=== PATIENT | male | born 1955 | race Caucasian/White ===

== ENCOUNTER 2019-06-13 20:14 | Emergency (ER) | payer BC, SELFPAY ==
[2019-06-13 20:44] VITALS: BP 145/91; PULSE 78; RESP 17; TEMP 36.5; O2SAT 96; BMI 33.1
[2019-06-13 20:46] VITALS: BMI 33.1
--- NOTE | 2019-06-13 20:46 | XR_ITS ---
PROCEDURE: XR PELVIS 1-2V CLINICAL INDICATION: fall COMPARISON: No exams were available for comparison TECHNIQUE: XR Pelvis AP View FINDINGS: No fracture or dislocation is evident. No significant degenerative change. There are prominent degenerate changes of the lower lumbar spine at the L 4 5 level. No lytic or blastic change. IMPRESSION: No acute findings. Dictated by: Dr. Josué Holliday MD 06/14/2019 09:[address] Josué Holliday MD in [place] 06/14/2019 09:09
--- NOTE | 2019-06-13 20:46 | CT_ITS ---
PROCEDURE: CT HEAD/BRAIN WO CON CLINICAL INDICATION: fall fell off of commode, no LOC COMPARISON: No exams were available for comparison TECHNIQUE: Axial images obtained. All CT scans at the facility use one or more dose reduction, viz: automated exposure control, ma/kV adjustment per patient size (including targeted exams where dose is matched to indication, i.e. head), or iterative reconstruction technique. FINDINGS: No midline shift, mass effect, intracranial hemorrhage, hydrocephalus, or extra-axial fluid collection is evident. The sylvian fissures and cortical sulci are mildly prominent. The calvarium has an unremarkable appearance. There is mild diffuse soft tissue swelling of the right periorbital region and upper right cheek. No mastoid effusion. No sinus air-fluid level. IMPRESSION: No acute intracranial finding, findings of mild age-appropriate cortical atrophy, agree with theV RC report Dictated by: Dr. Josué Holliday MD 06/14/2019 08:[address] Josué Holliday MD in [place] 06/14/2019 08:55
--- NOTE | 2019-06-13 20:46 | CT_ITS ---
PROCEDURE: CT FACIAL BONES WO CON CLINICAL HISTORY: fall Patient fell off commode contusion right-side of face COMPARISON: No exams were available for comparison TECHNIQUE: Axial images obtained with sagittal and coronal reformats. All CT scans at the facility use one or more dose reduction, viz: automated exposure control, ma/kV adjustment per patient size (including targeted exams where dose is matched to indication, i.e. head), or iterative reconstruction technique. FINDINGS: Bones: Unremarkable. No fracture, lytic, or blastic changes evident. Extracranial soft tissues: There is mild diffuse soft tissue swelling of the right periorbital region and right upper cheek anterior to the right zygomatic arch. Sinuses: There is minimal mucoperiosteal thickening on of the floors of the maxillary sinuses Orbits: Unremarkable. Other: No other pertinent findings. IMPRESSION: Mild diffuse soft tissue swelling of the right periorbital soft tissues, no acute fracture seen Dictated by: Dr. Josué Holliday MD 06/14/2019 09:[address] Josué Holliday MD in [place] 06/14/2019 09:07
--- NOTE | 2019-06-13 20:46 | CT_ITS ---
PROCEDURE: CT CERVICAL SPINE WO CON CLINICAL INDICATION: fall Fell off of commode hitting head, complaining of neck pain and stiffness COMPARISON: No exams were available for comparison TECHNIQUE: Axial images obtained with sagittal and coronal reformats. All CT scans at the facility use one or more dose reduction, viz: automated exposure control, ma/kV adjustment per patient size (including targeted exams where dose is matched to indication, i.e. head), or iterative reconstruction technique. Axial spiral CT scanning performed of the cervical spine beginning at the base of the skull and continuing to the upper T-spine. 3-D multiplanar reconstruction with 3-D manipulation of volumetric data set in image rendering was completed by the radiologist and/or technologist with the supervision of the radiologist on independent workstation. FINDINGS: No fracture nor subluxation is evident. Normal prevertebral soft tissues. Facets, neural foramen and vertebral bodies intact and unremarkable. Normal C1/C2 relationships. There are mild to moderate multilevel degenerate changes with multilevel disc space narrowing and anterior and posterior osteophytic spurring with findings most prominent at the C5-6 and C6-7 levels. There is bilateral neural foraminal narrowing at C4-5, C5-6 and C6-7 level secondary to osteophytic spurring of the uncinate joints. Apices of lungs are clear with no acute findings. IMPRESSION: Cervical spine intact with no fracture nor subluxation. Mild to moderate multilevel degenerate changes as noted above Dictated by: Dr. Josué Holliday MD 06/14/2019 08:[address] Josué Hloliday MD in [place] 06/14/2019 08:58
--- NOTE | 2019-06-13 20:46 | XR_ITS ---
PROCEDURE: XR CHEST PORTABLE CLINICAL HISTORY: fall COMPARISON: No exams were available for comparison FINDINGS: The cardiomediastinal silhouette and pulmonary vascularity are within normal limits. The lungs are clear without infiltrates, suspicious nodules, or pleural effusions. No acute bony abnormalities however the anterior portions of the 8 9th 10th and 11th and 12th ribs are not adequately evaluated on this image. IMPRESSION: No acute findings. Dictated by: Dr. Josué Holliday MD 06/14/2019 09:[address] Josué Holliday MD in [place] 06/14/2019 09:08
--- NOTE | 2019-06-13 21:03 | XR_ITS ---
PROCEDURE: XR HAND RT MIN 3V CLINICAL INDICATION: fall COMPARISON: No exams were available for comparison FINDINGS: No fracture or dislocation. No lytic or blastic change. There is normal mineralization. The joint spaces are well-preserved. There is mild mild osteophytic spurring of the DIP joints of the index middle and ring fingers IMPRESSION: No acute findings. Dictated by: Dr. Josué Holliday MD 06/14/2019 09:[address] Josué Holliday MD in [place] 06/14/2019 09:11
--- NOTE | 2019-06-13 21:03 | XR_ITS ---
PROCEDURE: XR HAND LT MIN 3V CLINICAL INDICATION: fall COMPARISON: No exams were available for comparison FINDINGS: No fracture or dislocation. No lytic or blastic change. There is normal mineralization. The joint spaces are well-preserved. No significant degenerative/arthritic changes. No erosive changes evident. Other findings:None. IMPRESSION: No acute findings. Dictated by: Dr. Josué Holliday MD 06/14/2019 09:[address] Josué Holliday MD in [place] 06/14/2019 09:10
--- NOTE | 2019-06-13 21:20 | PC.NURSE ---
pt to rad at this time
--- NOTE | 2019-06-13 21:29 | HMH.EDFALL ---
ED Disposition Clinical Impression: Central cord synd/C5-C7, Alcohol use Fall Qualifiers: Encounter type: initial encounter Qualified Code(s): W19.XXXA - Unspecified fall, initial encounter Disposition: Xfer Short-Term Hosp Condition on Discharge: Good Referrals: Jairo Singleton MD [Primary Care Provider] - - Critical Care Critical Care Time: Yes Attestation: On 06/13/19, the high probability of a clinically significant, sudden or life threatening deterioration of the following system(s) required my full and direct attention, intervention and personal management. The time I documented below is in addition to time spent performing reported procedures but includes the following listed in this critical care notation. Total Critical Care Time: 60 Vital system(s) involved:: Central Nervous System My critical care processes included: Assessment & monitoring of V/S, Initial and Re-exams, Data Review/Interpretation, Medication Orders and management, Documentation Medical Decision Making - Medical Records Medical records reviewed: Yes: I reviewed the patient's medical records. - Jovany Inquiry Pt receiving controlled substance: No Vital Signs: 06/13/19 20:44 06/13/19 22:18 Temperature 97.7 F Temperature Source Oral Pulse Rate [Right Brachial] 78 78 Respiratory Rate 17 16 Blood Pressure [Right Arm] 145/91 H 117/66 Blood Pressure Mean [Right Arm] 109 83 Blood Pressure Source [Right Arm] Automatic Cuff Automatic Cuff Blood Pressure Position [Right Arm] Sitting Sitting 02 Sat by Pulse Oximetry 96 96 Oxygen Delivery Method Room Air Room Air - Lab Data Lab results reviewed: Yes: I reviewed the patient's lab results. Lab Results 06/13/19 21:30: Urine Color Yellow, Urine Appearance Clear, Urine pH 6.0, Ur Specific Mission 1.010, Urine Protein Trace, Urine Glucose (UA) Negative, Urine Ketones Negative, Urine Blood Trace-i, Urine Nitrate Negative, Urine Bilirubin Negative, Urine Urobilinogen 0.2, Ur Leukocyte Esterase Negative, Urine WBC Occasional, Ur Squamous Epith Cells Occasional, Urine Bacteria Trace 06/13/19 21:30: Urine Opiates Screen Negative, Urine Methadone Screen Negative, Ur Barbituates Screen Negative, Ur Phencyclidine Scrn Negative, Ur Amphetamines Screen Negative, U Benzodiazepines Scrn Negative, Urine Cocaine Screen Negative, U Marijuana (THC) Screen Negative 06/13/19 21:41: Troponin I < 0.01, Salicylates < 1.0 L, Acetaminophen < 10 L 06/13/19 21:41: Plasma/Serum Alcohol 198 H 06/13/19 21:41: WBC 8.4, RBC 4.51 L, Hgb 14.2, Hct 46.0, MCV 102.1 H, MCH 31.5 H, MCHC 30.9 L, RDW 14.2, Plt Count 183, MPV 9.6, Neut % (Auto) 62.9, Lymph % (Auto) 28.8, [place] % (Auto) 4.6, Eos % (Auto) 2.9, Baso % (Auto) 0.8, Neut # (Auto) 5.3, Lymph # (Auto) 2.4, [place] # (Auto) 0.4, Eos # (Auto) 0.3, Baso # (Auto) 0.1 06/13/19 21:41: Sodium 139, Potassium 4.4, Chloride 110 H, Carbon Dioxide 17 L, Anion Gap 16.4 H, BUN 26 H, Creatinine 1.10, Estimated Creat Clear 86, Estimated GFR 68, Est GFR ( Amer) 82, Glucose 116 H, Calcium 9.8, Total Bilirubin 0.5, AST 62 H, ALT 66, Alkaline Phosphatase 65, Total Protein 7.7, Albumin 4.8, Globulin 2.9, Albumin/Globulin Ratio 1.7 Result diagrams: 06/13/19 21:41 06/13/19 21:41 Orders (Tests/Meds): ORDERS Category Date Time Status CT cervical spine wo con Stat Cat Scan 06/13/19 20:[address] facial bones wo con Stat Cat Scan 06/13/19 20:[address] head/brain wo con Stat Cat Scan 06/13/19 20:46 Taken XR chest portable Stat Exams 06/13/19 20:46 Taken XR hand LT min 3V Stat Exams 06/13/19 21:03 Taken XR hand RT min 3V Stat Exams 06/13/19 21:03 Taken XR pelvis 1-2V Stat Exams 06/13/19 20:46 Taken Troponin I Q3H Lab 06/13/19 23:48 Ordered Troponin I Q3H Lab 06/14/19 02:48 Ordered - Radiology Data #1 Image(s): Chest, Hand, Pelvis Image Reviewed: Yes I reviewed the patient's radiology image Preliminary Findings: No Fracture Seen - CT Data CT Scan: Head, C-Spine
--- NOTE | 2019-06-13 21:35 | PC.NURSE ---
family updated at this time
[2019-06-13 21:41] LABS: Microscopic, Urine URINE MICROSCOPIC (MICROSCOPIC)
--- NOTE | 2019-06-13 21:44 | PC.NURSE ---
called lab to obtain blood for ordered labs. states will go get from ct room
[2019-06-13 21:48] LABS: Appearance,Urine CLEAR (Clear); Bilirubin,Urine Negative (Negative); Blood, Urine TRACE-I (Negative); Color,Urine YELLOW (Yellow); Glucose,Urine (UA) Negative (Negative); Ketones,Urine Negative (Negative); Leukocyte Esterase,Urine Negative (Negative); Nitrate,Urine Negative (Negative); Protein,Urine TRACE (Negative); Urobilinogen,Urine 0.2 EU/dl (0.2)
[2019-06-13 21:49] LABS: Basophils # 0.1 K/mm3 (0-0.2); Basophils % 0.8 % (0.1-2.0); Eosinophils # 0.3 K/mm3 (0.0-0.4); Eosinophils % 2.9 % (0.1-12.0); Hemoglobin 14.2 g/dL (14.1-18.0); Lymphocytes # 2.4 K/mm3 (0.7-4.5); Lymphocytes % 28.8 % (10-50); Mean Corpuscular HGB Conc 30.9 g/dL (31.8-35.4); Mean Corpuscular Hemoglobin 31.5 pg (27.0-31.2); Mean Corpuscular Volume 102.1 fl (80-94); Mean Platelet Volume 9.6 fl (7.4-10.4); Monocytes # 0.4 K/mm3 (0.1-1.0); Monocytes % 4.6 % (1.7-9.3); Neutrophils # 5.3 K/mm3 (1.8-7.8); Neutrophils % 62.9 % (37.0-80.0); Platelet Count 183 K/mm3 (142-424); Red Blood Count 4.51 M/mm3 (4.60-6.20); Red Cell Distribution Width 14.2 % (11.5-17.5); White Blood Count 8.4 K/mm3 (4.8-10.8)
[2019-06-13 21:56] LABS: Alanine Aminotransferase 66 U/L (12-78); Albumin Level 4.8 g/dl (3.5-5.0); Albumin/Globulin Ratio 1.7 (1.1-1.8); Alkaline Phosphatase 65 U/L (38-126); Anion Gap 16.4 mEq/L (5-15); Aspartate Amino Transferase 62 U/L (17-59); Bilirubin,Total 0.5 mg/dl (0.2-1.3); Blood Urea Nitrogen 26 mg/dl (9-20); Calcium 9.8 mg/dl (8.4-10.2); Carbon Dioxide 17 mmol/L (22.0-30.0); Chloride 110 mmol/L (98-107); Creatinine Clearance Estimated 86 mL/min (50-200); Estimated Glomerular Filt Rate 68 ml/min (>60); GFR (African American) 82 ML/MIN (>60); Globulin 2.9 g/dL (1.3-3.2); Glucose 116 mg/dl (74-100); Potassium 4.4 mmoL/L (3.5-5.1); Sodium 139 mmol/L (136-145); Total Protein,Serum 7.7 g/dl (6.3-8.2)
--- NOTE | 2019-06-13 22:03 | PC.NURSE ---
pt return from radiology. no acute distress or new complaints noted.
--- NOTE | 2019-06-13 22:04 | PC.NURSE ---
negative cspine ct result received. collar removed at this time. nurse at bedside for ekg.
[2019-06-13 22:08] LABS: Amphetamine/Metha Screen,Urine Negative ng/ml (<1000); Barbiturates Screen,Urine Negative ng/ml (<200)
[2019-06-13 22:08] LABS: Acetaminophen < 10 ug/ml (10-30); Salicylate < 1.0 mg/dL (2.0-20.0); Troponin I < 0.01 ng/ml (0.00-0.034)
[2019-06-13 22:09] LABS: Benzodiazepines Screen,Urine Negative ng/ml (<200)
[2019-06-13 22:10] LABS: Cannabinoid Screen,Urine Negative ng/ml (<50); Cocaine Screen,Urine Negative ng/ml (<300)
[2019-06-13 22:11] LABS: Methadone Screen,Urine Negative ng/ml (<300)
[2019-06-13 22:12] LABS: Opiate Screen,Urine Negative ng/ml (<300); Phencyclidine Screen,Urine Negative ng/ml (<25)
--- NOTE | 2019-06-13 22:16 | ECG_ITS ---
APPROVED REPORT Exam: Resting ECG HR:75 bpm ECG Measurements Heart Rate 75 AXES VA 134 P 52 QRSd 80 QRS 73 QT 392 T 60 QTc 437 <Conclusion> Normal sinus rhythm Normal ECG Electronically signed by : Evin Foster, 06/16/2019 14:11:22
[2019-06-13 22:17] LABS: Ethyl Alcohol 198 mg/dl (0-10)
[2019-06-13 22:18] VITALS: BP 117/66; PULSE 78; RESP 16; O2SAT 96
[2019-06-13 22:20] LABS: Bacteria,Urine Trace /lpf; Squamous Epithelial Cell,Urine Occasional #/hpf (0-5); WBC,Urine Occasional #/hpf (0-3)
--- NOTE | 2019-06-13 22:54 | PC.NURSE ---
on phone with [facility]
[2019-06-13 23:15] VITALS: BP 153/92; PULSE 80; RESP 16; O2SAT 97
[2019-06-14] VITALS: BP 149/89; PULSE 80; RESP 17; O2SAT 98
--- NOTE | 2019-06-14 00:04 | PC.NURSE ---
ems is here to transfer patient to er
[2019-06-14 00:17] VITALS: BP 132/78; PULSE 79; RESP 17; TEMP 36.5; O2SAT 96
--- NOTE | 2019-06-14 00:17 | PC.NURSE ---
report was given to melania Pendleton. States he didn't understand need for cardiac catheterization technician and preferred it be changed on the transfer form.
== END 2019-06-14 00:21 | disposition short-term general hospital (02) ==
PROVIDERS: Emergency Provider Emergency Medicine; PCP Family Medicine
DX: S14.125A Central cord syndrome at C5 level of cervical spinal cord, initial encounter (principal); S14.126A Central cord syndrome at C6 level of cervical spinal cord, initial encounter; S14.127A Central cord syndrome at C7 level of cervical spinal cord, initial encounter; W18.39XA Other fall on same level, initial encounter; Y92.012 Bathroom of single-family (private) house as the place of occurrence of the external cause; F10.10 Alcohol abuse, uncomplicated; I10 Essential (primary) hypertension; E11.9 Type 2 diabetes mellitus without complications; F17.210 Nicotine dependence, cigarettes, uncomplicated
CPT/HCPCS: 36415; 70450; 70486; 71045; 72125; 72170; 73130; 80053; 80305; 80329; 81001; 84484; 85025; 93005; 99284

== ENCOUNTER 2020-10-11 14:31 | Emergency (ER) | payer BC, SELFPAY ==
[2020-10-11 15:47] VITALS: BP 0/0; PULSE 0; RESP 0; TEMP -17.7; TEMP 0
== END 2020-10-11 15:48 | disposition left against medical advice (07) ==
LOC: UTC 14:34
PROVIDERS: Emergency Provider Nurse Practitioner; PCP Family Medicine
DX: Z53.21 Procedure and treatment not carried out due to patient leaving prior to being seen by health care provider (principal)

== ENCOUNTER 2020-10-14 09:01 | Emergency (ER) | payer BC, SELFPAY ==
[2020-10-14 09:01] VITALS: BP 183/100; PULSE 93; RESP 18; TEMP 37; O2SAT 96; BMI 32.5
--- NOTE | 2020-10-14 09:31 | HMH.EDUTC ---
[facility] [place] Impression: Exposure to COVID-19 virus Disposition: Home, Self-Care Condition on Discharge: Good Instructions: DI for COVID-19 (Suspected or Confirmed ), Preventing the Spread of Coronavirus Discharge Instructions Additional Instructions: *Monitor Temp, Over the counter Motrin or Tylenol as directed/as needed Tylenol every 4 hours and Motrin every 6 hours (as long as your family doctor has told you that you can take it) for fever or pain. and straight to ER if unable to lower temp less than 101.0 after medication given Follow up IMMEDIATELY for new or worsening symptoms or no Noticeable improvement over the next 48-72 hours. 911 for difficulty breathing or swallowing You were tested for today for COVID19 your test result should be back in the next 24-48 hours, you may call to the [facility] to see if your test results are back in the next 48 hours [phone] [facility] hours are 9am-9pm You was given a handout with instructions for Self Quarantine and Self isolation for while you wait on test results and what to do if they are positive If you are positive the Health Dept will be contacting you also Make sure to take your Vitamins Vit. C Vit D and Zinc if you can take them Referrals: Jairo Singleton MD [Primary Care Provider] - As needed Time of Disposition: 09:31 Medical Decision Making - Jovany Inquiry Pt receiving controlled substance: No Jovany was queried for this patient: No Vital Signs: 10/14/20 09:01 Temperature 98.6 F Temperature Source Oral Pulse Rate [Right Brachial] 93 H Respiratory Rate 18 Blood Pressure [Right Arm] 183/100 H Blood Pressure Mean [Right Arm] 127 Blood Pressure Source [Right Arm] Automatic Cuff Blood Pressure Position [Right Arm] Sitting 02 Sat by Pulse Oximetry 96 Oxygen Delivery Method Room Air Medical Decision Narrative: Patient blood pressure elevated patient states he is tore up about getting tested and being in a clinic with others States that he feels nervous and will monitor his blood pressure and if it remains elevated he will follow up with his [place]CP [facility] [place] - General Stated complaint: covid test Time Seen by Provider: 10/14/20 09:31 Mode of Arrival: Ambulatory Source of Information: Patient Limitations: No Limitations Description of Symptoms (Recalled from Triage Doc. by RN): COVID TEST D/T EXPOSURE. DENIES SYMPTOMS HEENT Symptoms (Recalled from RN notes): No Resp Symptoms (Recalled from RN notes): No Skin Symptoms (Recalled from RN notes): No MS Symptoms (Recalled from RN notes): No Functional Status (Recalled from RN notes): WNL - History of Present Illness Provider Complaint: Patient states that he is fully vaccinated State that recently tested positive for COVID and she is vaccinated too and only having mild symptoms but he wanted to get tested Denies any symptoms - Related Data Home Medications Medication Instructions Recorded Confirmed Lisinopril/Hydrochlorothiazide 2 tab PO DAILY 06/13/19 06/13/19 [Lisinopril-Hctz 20-12.5 mg Tab] Metformin HCl [Glucophage Xr] 3 tab PO DAILY 06/13/19 06/13/19 Pravastatin Sodium [Pravachol 40mg 40 mg PO DAILY 06/13/19 06/13/19 Tablet] Verapamil HCl [Verapamil ER] 240 mg PO DAILY 06/13/19 06/13/19 allopurinoL [Allopurinol 100mg 200 mg PO DAILY 06/13/19 06/13/19 tablet] Allergies Allergy/AdvReac Type Severity Reaction Status Date / Time No Known Allergies Allergy Verified 06/13/19 20:46 - Worker's Comp Is this a Worker's Comp case?: No [facility] History - Hepatitis A Screen Drug use history?: No High risk sexual behaviors?: No History of sexually transmitted infection?: No Currently employed?: No Childcare worker?: No Do you have indoor plumbing?: Yes Do you have electricity?: Yes Attestation statement:: This patient has been screened for Hepatitis A risk factors. I have reviewed the patient's past medical history: Yes Medical History: Reports:: Diabetes Mellitus Type
[2020-10-14 09:32] VITALS: BP 167/92
[2020-10-14 09:33] VITALS: BP 167/92; PULSE 93; RESP 18; TEMP 37; O2SAT 96
--- NOTE | 2020-10-15 10:28 | PC.NURSE ---
informed patient that he is positive
== END 2020-10-14 09:37 | disposition home or self-care (01) ==
PROVIDERS: Emergency Provider Nurse Practitioner; PCP Family Medicine
DX: U07.1 COVID-19 (principal); I10 Essential (primary) hypertension; E11.9 Type 2 diabetes mellitus without complications; F17.210 Nicotine dependence, cigarettes, uncomplicated; Z79.899 Other long term (current) drug therapy
CPT/HCPCS: 99203; G0463; U0003

== ENCOUNTER → 2020-12-14 15:34 | Outpatient (CLI) | payer BC, SELFPAY ==
[2020-12-14 16:43] LABS: Alanine Aminotransferase 48 U/L (12-78); Albumin Level 4.3 g/dl (3.5-5.0); Albumin/Globulin Ratio 1.7 (1.1-1.8); Alkaline Phosphatase 72 U/L (38-126); Anion Gap 12.2 mEq/L (5-15); Aspartate Amino Transferase 36 U/L (17-59); Bilirubin,Total 0.9 mg/dl (0.2-1.3); Blood Urea Nitrogen 21 mg/dl (9-20); Calcium 9.7 mg/dl (8.4-10.2); Carbon Dioxide 27 mmol/L (22.0-30.0); Chloride 109 mmol/L (98-107); Cholesterol 157 mg/dl (140-200); Estimated Glomerular Filt Rate 68 ml/min (>60); GFR (African American) 82 ML/MIN (>60); Globulin 2.6 g/dL (1.3-3.2); Glucose 111 mg/dl (74-100); HDL Cholesterol 80 mg/dl (40-60); Potassium 5.2 mmoL/L (3.5-5.1); Sodium 143 mmol/L (136-145); Total Protein,Serum 6.9 g/dl (6.3-8.2); Triglycerides 99 mg/dl (30-150); Uric Acid 2.6 mg/dl (3.5-8.5); VLDL Cholesterol 20 mg/dL (0-40)
[2020-12-14 16:51] LABS: 25-OH Vitamin D, Total 60.2 ng/mL (30-100)
[2020-12-14 17:04] LABS: Thyroid Stimulating Hormone 3.72 uIU/mL (0.465-4.68)
[2020-12-14 21:21] LABS: Hemoglobin A1C 6.1 % (4.0-6.0)
== END ==
PROVIDERS: Visit Provider Family Medicine
DX: E11.9 Type 2 diabetes mellitus without complications (principal); E78.5 Hyperlipidemia, unspecified; E55.9 Vitamin D deficiency, unspecified; E79.0 Hyperuricemia without signs of inflammatory arthritis and tophaceous disease
CPT/HCPCS: 36415; 80053; 80061; 82306; 83036; 84443; 84550

== ENCOUNTER → 2020-12-17 16:16 | Outpatient (CLI) | payer BC, SELFPAY ==
[2020-12-17 17:16] LABS: Creatinine,Urine Random 94 mg/dL (Not Estab.)
[2020-12-17 18:11] LABS: Microalbumin > 570.000 mg/L (0-16.7); Microalbumin/Creatinine Ratio 606.3
== END ==
PROVIDERS: Visit Provider Family Medicine
DX: I10 Essential (primary) hypertension (principal); E11.9 Type 2 diabetes mellitus without complications; E78.5 Hyperlipidemia, unspecified; E55.9 Vitamin D deficiency, unspecified; E79.0 Hyperuricemia without signs of inflammatory arthritis and tophaceous disease; Z79.84 Long term (current) use of oral hypoglycemic drugs
CPT/HCPCS: 82043; 82570

== ENCOUNTER 2023-03-30 09:46 | Outpatient (CLI) | payer MEDICARE, SELFPAY ==
--- NOTE | 2023-03-30 | CA_ITS ---
APPROVED REPORT EXAM: Comprehensive 2D, Doppler, and color-flow Echocardiogram Leaf Conditioner: Teresita Nieves RDCS Ht: 5 ft 6 in Wt: 198lbs BSA: 1.99 BP: 122/84 mmHg Indications: SOA M-Mode Dimensions RVDd 3.44 cm (0.9-2.6) LA Diam 3.62 cm (1.9-4.0) LVDd 4.80 cm (3.5-5.7) LVDs 3.61 cm (3.5-5.7) IVSd 0.76 cm (0.6-1.1) PWd 0.81 cm (0.6-1.1) EF (Teich) 49.00% FS 24.80% EDV (Teich) 107.50 mL ESV (Teich) 54.80 mL LV Diastology E Decel Time 143 (160-240 msec) E/A Ratio 1.1 Mitral Valve MV E Max Kareem. 98.0 (40-130 cm/s) MV A Velocity 89.0 (40-130 cm/s) E/A Ratio 1.11 MV PHT 42.0 ms Left Ventricle The left ventricle is normal size. The left ventricular systolic function is normal. The left ventricular ejection fraction is within the normal range. There is normal left ventricular wall thickness. There is normal LV segmental wall motion. The left ventricular diastolic function is normal. LVEF is 60%. Right Ventricle The right ventricle is normal size. The right ventricular systolic function is normal. Atria The left atrium size is normal. The right atrium cavity is small. There is no Doppler evidence of interatrial shunt. Aortic Valve The aortic valve is mildly thickened. There is no aortic valvular stenosis. No aortic regurgitation is present. Mitral Valve The mitral valve is normal in structure. No evidence of mitral valve stenosis. There is no mitral valve regurgitation noted. Tricuspid Valve The tricuspid valve leaflets are thin and pliable. Trace tricuspid regurgitation. There is insufficient TR jet to estimate RVSP. Pulmonic Valve The pulmonary valve is normal in structure. Trace pulmonic regurgitation. Great Vessels The aortic root is normal in size. The IVC is not well visualized. Pericardium There is no pericardial effusion. Ascites is incidentally noted. Other Information Study Quality: Fair Conclusion Normal biventricular systolic function. No significant valvular stenosis or regurgitation. Ascites is incidentally noted. Electronically signed by : Citlalli Garcia MD 04/02/2023 19:29:41
== END 2023-03-30 23:59 ==
LOC: RT 09:49
PROVIDERS: PCP Family Medicine; Visit Provider Family Medicine
DX: R06.02 Shortness of breath (principal); R60.0 Localized edema
CPT/HCPCS: 93306

== ENCOUNTER 2023-04-13 06:37 | Outpatient (CLI) | payer MEDICARE, SELFPAY ==
--- NOTE | 2023-04-13 06:48 | US_ITS ---
FINAL REPORT CLINICAL HISTORY: ASCITES,PERIPHERAL EDEMA COMPARISON: None FINDINGS: Sonographic images of the abdomen were obtained. There is coarse echotexture of the liver with slight nodularity consistent with changes of cirrhosis. The gallbladder has an unremarkable appearance without evidence of gallstones. The gallbladder wall measures 5 mm in thickness, which is a nonspecific finding but mildly thicker than usual. There is no evidence of biliary ductal dilatation. The common hepatic duct measures 4 mm, which is within normal limits. Limited images of the pancreas are unremarkable. The spleen size is normal. The right kidney measures 9.8 in length. The left kidney measures 9.5 in length. There is a hypoechoic focus present in the upper pole of the right kidney measuring 1.6 cm in size, and another exophytic component on the right which measures 3.4 cm in size, the overall appearance consistent with renal cysts. There is no evidence of hydronephrosis. The aorta has an unremarkable appearance. Limited images of the inferior vena cava are unremarkable. Ascites is present. IMPRESSION: Coarsened echotexture with nodularity of the liver, consistent with changes of cirrhosis. Ascites is present as well. Right renal cysts as described. Reviewed, Interpreted and Dictated by Sav Barnard III, MD Transcribed by Oksana Lozano Authenticated and [facility]
== END 2023-04-13 23:59 ==
LOC: RAD 06:42
PROVIDERS: PCP Family Medicine; Visit Provider Family Medicine
DX: R18.8 Other ascites (principal)
CPT/HCPCS: 76700

== ENCOUNTER 2023-07-27 16:36 | Observation (INO) | payer MEDICARE, SELFPAY ==
[2023-07-27 16:36] VITALS: BP 100/68; PULSE 95; RESP 13; TEMP 36.8; O2SAT 95; BMI 29.5
[2023-07-27 17:00] VITALS: BP 105/73; PULSE 92; O2SAT 97
--- NOTE | 2023-07-27 17:00 | PC.NURSE ---
CONSENT SIGNED FOR PARACENTESIS
--- NOTE | 2023-07-27 17:04 | XR_ITS ---
PROCEDURE INFORMATION: Exam: XR Chest Exam date and time: 07/27/2023 5:19 PM Age: 68 years old Clinical indication: Dyspnea TECHNIQUE: Imaging protocol: Radiologic exam of the chest. Views: 1 view. COMPARISON: CR XR CHEST PORTABLE 06/13/2019 9:30 PM FINDINGS: Lungs: Unremarkable. No consolidation. Pleural spaces: Unremarkable. No pleural effusion. No pneumothorax. Heart/Mediastinum: Unremarkable. No cardiomegaly. Bones/joints: Unremarkable. IMPRESSION: No acute findings.
--- NOTE | 2023-07-27 17:12 | PC.NURSE ---
DR MEYER AT BEDSIDE
[2023-07-27 17:15] LABS: Basophils % 0.3 % (0.1-2.0); Eosinophils # 0.1 K/mm3 (0.0-0.4); Eosinophils % 0.4 % (0.1-12.0); Hematocrit 33.3 % (42.0-52.0); Hemoglobin 10.7 g/dL (14.1-18.0); Lymphocytes # 1.3 K/mm3 (0.7-4.5); Lymphocytes % 12.6 % (10-50); Mean Corpuscular HGB Conc 32.1 g/dL (31.8-35.4); Mean Corpuscular Hemoglobin 32.4 pg (27.0-31.2); Mean Corpuscular Volume 100.9 fl (80-94); Mean Platelet Volume 10.3 fl (7.4-10.4); Monocytes # 0.5 K/mm3 (0.1-1.0); Monocytes % 4.9 % (1.7-9.3); Neutrophils # 8.7 K/mm3 (1.8-7.8); Neutrophils % 81.8 % (37.0-80.0); Platelet Count 174 K/mm3 (142-424); Red Cell Distribution Width 15.1 % (11.5-17.5); White Blood Count 10.6 K/mm3 (4.8-10.8)
[2023-07-27 17:16] LABS: Chloride 101 mmol/L (98-107); Potassium 4.4 mmoL/L (3.5-5.1); Sodium 130 mmol/L (136-145)
[2023-07-27 17:19] LABS: Alanine Aminotransferase 17 U/L (12-78); Albumin Level 3.3 g/dl (3.5-5.0); Albumin/Globulin Ratio 1.2 (1.1-1.8); Alkaline Phosphatase 94 U/L (38-126); Anion Gap 14.4 mEq/L (5-15); Aspartate Amino Transferase 21 U/L (17-59); Bilirubin,Total 0.5 mg/dl (0.2-1.3); Blood Urea Nitrogen 35 mg/dl (9-20); Calcium 9.1 mg/dl (8.4-10.2); Carbon Dioxide 19 mmol/L (22.0-30.0); Creatinine Clearance Estimated 40 mL/min (50-200); Estimated Glomerular Filt Rate 34 ml/min (>60); GFR (African American) 41 ML/MIN (>60); Globulin 2.8 g/dL (1.3-3.2); Glucose 118 mg/dl (74-100); Lipase 265 U/L (23-300); Total Protein,Serum 6.1 g/dl (6.3-8.2)
[2023-07-27 17:24] LABS: INR 1.09 (0.9-1.1); Prothrombin Time 11.7 seconds (10.1-12.5)
--- NOTE | 2023-07-27 17:24 | HMH.EDGENADL ---
Discharge Plan Disposition Chief Complaint: Nausea/Vomiting/Diarrhea Clinical Impressions Clinical Impression: Dyspnea on exertion, Decompensation of cirrhosis of liver, EWA (acute kidney injury) Discharge ED Provider: Iona Gonzalez General Adult HPI General Chief complaint: Nausea/Vomiting/Diarrhea Stated complaint: weakness Time Seen by Provider: 07/27/23 16:56 Mode of Arrival: EMS Source of Information: Patient Limitations: No Limitations Description of Symptoms (Recalled from ER Triage Doc. by RN): pt presents to ED with c/o bilateral swelling, vomitting, pt reports that he has been unable to eat anything solid for the past week and a half. History of Present Illness HPI narrative: 68-year-old male with a known history of alcoholic cirrhosis has been seen once by fireworks assembler presenting today with generalized weakness that is been worsening over the last several weeks. States has had nothing to eat over the last 2 weeks. Has had abdominal distention for the last several months. No changes in mental status but has been severely fatigued. No melena or hematochezia or hematemesis. No known varices. States he last had alcohol 1 month ago. Has a history of drinking bourbon on a daily basis prior to that for an extended period of time. Denies any chest pain but has severe dyspnea on exertion. No fevers or chills or any other complaints. Related Data Home Medications Medication Instructions Recorded Confirmed allopurinol 100 mg tablet 200 mg PO DAILY gout 06/13/19 06/13/19 lisinopril 20 2 tab PO DAILY htn 06/13/19 06/13/19 mg-hydrochlorothiazide 12.5 mg tablet metformin 750 mg tablet,extended 3 tab PO DAILY Diabetes 06/13/19 06/13/19 release 24 hr pravastatin 40 mg tablet 40 mg PO DAILY Cholesterol 06/13/19 06/13/19 verapamil 240 mg tablet,extended 240 mg PO DAILY htn 06/13/19 06/13/19 release Allergies Allergy/AdvReac Type Severity Reaction Status Date / Time No Known Allergies Allergy Verified 06/13/19 20:46 [facility] Disclaimer: The information contained in this section may have been updated after the patient was seen, as this information can be updated by other users. Social History Smoking Status: Current every day smoker alcohol intake: current alcohol intake frequency: 3 or more drinks per day current occupational status: unemployed Travel in the last 8 weeks: None ROS Obtained: Yes All systems reviewed & no additional complaints except as documented Physical Exam General General appearance: alert Chest Chest inspection: Present normal inspection; Absent symmetric chest wall rise Respiratory Respiratory exam: Present normal lung sounds bilaterally; Absent respiratory distress Cardiovascular Cardiovascular exam: Present regular rate Abdominal Exam Abdominal exam: Present tenderness (Distended abdomen positive fluid wave with obvious caput) Neurological Exam Neurological exam: Present alert and oriented X3 Medical Decision Making Jovany Inquiry Pt receiving controlled substance: No Vital Signs: 07/27/23 16:36 07/27/23 17:00 Temperature 98.2 F Temperature Source Oral Pulse Rate 92 H Pulse Rate [Left Radial] 95 H Respiratory Rate 13 Blood Pressure 105/73 L Blood Pressure [Right Arm] 100/68 L Blood Pressure Mean [Right Arm] 78 02 Sat by Pulse Oximetry 95 97 Oxygen Delivery Method Room Air Room Air Lab Data Lab results reviewed: Yes I reviewed the patient's lab results. Lab Results 07/27/23 16:35: WBC 10.6, RBC 3.30 L, Hgb 10.7 L, Hct 33.3 L, MCV 100.9 H, MCH 32.4 H, MCHC 32.1, RDW 15.1, Plt Count 174, MPV 10.3, Neut % (Auto) 81.8 H, Lymph % (Auto) 12.6, [place] % (Auto) 4.9, Eos % (Auto) 0.4, Baso % (Auto) 0.3, Neut # (Auto) 8.7 H, Lymph # (Auto) 1.3, [place] # (Auto) 0.5, Eos # (Auto) 0.1, Baso # (Auto) 0.0, PT 11.7, INR 1.09, Sodium 130 L, Potassium 4.4, Chloride 101, Carbon Dioxide 19 L, Anion Gap 14.4, BUN 35 H, Creatinine 2.00 H, Estimated
[2023-07-27 17:28] LABS: NT Pro Brain Natriuretic Pep. 412 pg/mL (0-125)
--- NOTE | 2023-07-27 17:29 | ECG_ITS ---
APPROVED REPORT Exam: Resting ECG HR:85 bpm ECG Measurements Heart Rate 85 AXES UT 128 P -26 QRSd 97 QRS 74 QT 364 T 80 QTc 406 Conclusion SINUS RHYTHM LOW QRS VOLTAGE IN PRECORDIAL LEADS [QRS DEFLECTION < 1.0 mV IN CHEST LEADS] INCOMPLETE RIGHT BUNDLE BRANCH BLOCK [90+ ms QRS DURATION, TERMINAL R IN V1/V2, 40+ ms S IN I/aVL/V4/V5/V6] BORDERLINE ECG UNCONFIRMED REPORT Electronically signed by : Reynaldo Gonzalez, 07/28/2023 00:21:41
[2023-07-27 17:32] LABS: Troponin I < 0.01 ng/ml (0.00-0.034)
[2023-07-27 17:49] LABS: Lactate Venous 1.9 mmol/L (0.4-2.0); VBG Base Excess -7.1 mmol/L (-2.4-2.3); VBG PH 7.38 mmol/L (7.31-7.41); VBG PO2 56.5 mmol/L (28-40); VBG Total CO2 18.9 mmol/L (23-27)
[2023-07-27 17:53] LABS: Appearance,Body Fld. Normal; Source, Body Fld. Peritoneal Fluid; TNC,Body Fluid 156 cells/uL (< 1000); Volume,Body Fld. 40 mL
[2023-07-27 17:54] LABS: Ammonia < 9 umol/L (9-30)
[2023-07-27 17:54] LABS: RBC,Body Fluid < 10 cells/uL (< 10 X 10^3)
--- NOTE | 2023-07-27 18:23 | PC.NURSE ---
DR LISY ARANGO
--- NOTE | 2023-07-27 18:25 | PC.NURSE ---
DR MEYER SPEAKING WITH DR WASSERMAN
--- NOTE | 2023-07-27 18:45 | PC.NURSE ---
CALL PLACED FOR POSSIBLE TRANSFER TO [place]
--- NOTE | 2023-07-27 19:07 | PC.NURSE ---
[facility] DECLINES TRANSFER
--- NOTE | 2023-07-27 19:28 | PC.NURSE ---
call to [facility], waiting for call back
[2023-07-27 19:51] VITALS: BP 119/80; PULSE 95; RESP 18; TEMP 36.8; O2SAT 95
--- NOTE | 2023-07-27 19:51 | PC.NURSE ---
report called to Sylvia LING
--- NOTE | 2023-07-27 20:21 | PC.NURSE ---
Yolanda arrived to floor via wheelchair from ED at 20:08.
[2023-07-27 20:31] VITALS: BP 122/64; PULSE 80; RESP 16; TEMP 36.6; O2SAT 100; BMI 26.3
[2023-07-27 20:39] LABS: Mononuclear WBCs,Body Fluid 100 %; Polynuclear WBC,Body Fluid 0 %
[2023-07-27 21:41] LABS: Troponin I < 0.01 ng/ml (0.00-0.034)
[2023-07-27 23:31] LABS: Troponin I < 0.01 ng/ml (0.00-0.034)
--- NOTE | 2023-07-28 03:29 | PC.NURSE ---
Pt accepted to bed at [facility] 3G, Room 361
--- NOTE | 2023-07-28 03:59 | PC.NURSE ---
Report called to Mariel LING at [facility] at this time
[2023-07-28 04:00] VITALS: BP 127/78; PULSE 103; RESP 18; TEMP 36.6; O2SAT 97; BMI 26.3
--- NOTE | 2023-07-28 05:00 | PC.NURSE ---
Notified of pt transfer per pt request
--- NOTE | 2023-07-28 05:30 | PC.NURSE ---
pt left floor with EMS personnel @ [phone]
--- NOTE | 2023-07-28 05:37 | PC.NURSE ---
PATIENT LEFT FLOOR WITH EMS AT 5:36.
--- NOTE | 2023-07-28 07:21 | EXP.HPDC ---
General Admission date:: 07/27/23 Discharge date: 07/28/23 *Admission Date: 07/27/23 *Chief complaint: Fatigue *History of present illness: HPI narrative: 68-year-old male with a known history of alcoholic cirrhosis has been seen once by residential electrician presenting today with generalized weakness that is been worsening over the last several weeks. States has had nothing to eat over the last 2 weeks. Has had abdominal distention for the last several months. No changes in mental status but has been severely fatigued. No melena or hematochezia or hematemesis. No known varices. States he last had alcohol 1 month ago. Has a history of drinking bourbon on a daily basis prior to that for an extended period of time. Denies any chest pain but has severe dyspnea on exertion. No fevers or chills or any other complaints. Above note per ER documentation. Briefly, called by ER physician. Patient tired, had EWA, workup as noted above, has cirrhosis by history but not on imaging. Apparently had a GI evaluation but we do not have records. Patient does have cirrhosis, diagnostic paracentesis in the emergency department showed clear fluid with no evidence of infection. Patient needed to be admitted for hydration and GI workup. [facility] accepted patient but did not have beds at the time of his presentation he was admitted to [facility] floor for observation and IV fluids. [facility] Disclaimer: The information contained in this section may have been updated after the patient was seen, as this information can be updated by other users. Medical History (Updated 07/27/23 @ 20:33 by Sylvia Branch RN) Cirrhosis Hypertension Diabetes mellitus Gout Social History (Updated 07/27/23 @ 20:34 by Sylvia Branch RN) Smoking Status: Current every day smoker tobacco type: cigarettes packs per day: 1 alcohol intake: former current occupational status: unemployed Travel in the last 8 weeks: None Exam Data for Last 24 hours Vital signs and Labs for Last 24 Hours: Temp Pulse Resp BP Pulse Ox O2 Del Method 97.9 F 103 H 18 127/78 97 Room Air 07/28/23 04:00 07/28/23 04:00 07/28/23 04:00 07/28/23 04:00 07/28/23 04:00 07/28/23 04:48 Laboratory Results - last 24 hr 07/27/23 16:35: WBC 10.6, RBC 3.30 L, Hgb 10.7 L, Hct 33.3 L, MCV 100.9 H, MCH 32.4 H, MCHC 32.1, RDW 15.1, Plt Count 174, MPV 10.3, Neut % (Auto) 81.8 H, Lymph % (Auto) 12.6, [place] % (Auto) 4.9, Eos % (Auto) 0.4, Baso % (Auto) 0.3, Neut # (Auto) 8.7 H, Lymph # (Auto) 1.3, [place] # (Auto) 0.5, Eos # (Auto) 0.1, Baso # (Auto) 0.0, PT 11.7, INR 1.09, Sodium 130 L, Potassium 4.4, Chloride 101, Carbon Dioxide 19 L, Anion Gap 14.4, BUN 35 H, Creatinine 2.00 H, Estimated Creat Clear 40, Estimated GFR 34 L, Est GFR ( Amer) 41 L, Glucose 118 H, Calcium 9.1, Total Bilirubin 0.5, AST 21, ALT 17, Alkaline Phosphatase 94, Troponin I < 0.01, NT-Pro-B Natriuret Pep 412 H, Total Protein 6.1 L, Albumin 3.3 L, Globulin 2.8, Albumin/Globulin Ratio 1.2, Lipase 265, Fluid Source Peritoneal fluid, Fluid Volume 40, Fluid Appearance Normal, Fluid RBC (Auto) < 10, Fld Tot Nucleated Cell 156, Fld Polynuclear WBCs % 0, Fld Mononuclear WBCs % 100 07/27/23 17:05: VBG pH 7.38, VBG pCO2 31.0 L, VBG pO2 56.5 H, VBG HCO3 18.0 L, VBG Total CO2 18.9 L, VBG O2 Saturation 87.0 H, VBG Base Excess -7.1 L, VBG Lactic Acid 1.9 07/27/23 17:37: Ammonia < 9 L 07/27/23 20:55: Troponin I < 0.01 07/27/23 23:05: Troponin I < 0.01 I & O for Last 24 hours: Intake & Output 07/25/23 07/26/23 07/27/23 07/28/23 11:59 11:59 11:59 11:59 Output Total 300 / 300 Balance -300 / -300 Weight 154 lb 0.168 oz Microbiology Reports for the Last 24 Hours: Microbiology 07/27/23 17:24 Synovial Fluid Gram Stain - Final Constitutional Comments: Please see ER notes for details. Patient was transferred to [facility] before I was able to examination *Routine HEENT Exam Head: Present
--- NOTE | 2023-07-31 12:18 | CARE MANAGER ---
Attempted to contact patient x2 related to hospital discharge. Left VM message. ANURADHA Talbert
== END 2023-07-28 05:30 | disposition short-term general hospital (02) ==
LOC: ER 16:59 → 2ND 19:53
PROVIDERS: Admitting Provider Internal Medicine Adolescent Medicine; Emergency Provider Student in an Organized Health Care Education/Training Program; PCP Family Medicine; Visit Provider Family Medicine
DX: K70.30 Alcoholic cirrhosis of liver without ascites (principal); N17.9 Acute kidney failure, unspecified; F10.10 Alcohol abuse, uncomplicated; R06.09 Other forms of dyspnea; Z79.899 Other long term (current) drug therapy; I10 Essential (primary) hypertension; E11.9 Type 2 diabetes mellitus without complications; F17.210 Nicotine dependence, cigarettes, uncomplicated
CPT/HCPCS: 36415; 49083; 71045; 80053; 82140; 82803; 83690; 83880; 84484; 85025; 85610; 87070; 87205; 89051; 93005; 99285; G0378; J1642; J7120

== ENCOUNTER 2023-08-04 14:37 | Inpatient (IN) | payer MEDICARE, SELFPAY ==
[2023-08-04] VITALS (8 sets, daily range): BP systolic 125–178; BP diastolic 66–113; PULSE 81–90; RESP 18–19; TEMP 36.4–37; O2SAT 96–100; BMI 28.3; BMI 25.7
--- NOTE | 2023-08-04 14:42 | ECG_ITS ---
APPROVED REPORT Exam: Resting ECG HR:85 bpm ECG Measurements Heart Rate 85 AXES NH 121 P -35 QRSd 87 QRS 81 QT 379 T 101 QTc 421 Conclusion SINUS RHYTHM LOW QRS VOLTAGE IN PRECORDIAL LEADS [QRS DEFLECTION < 1.0 mV IN CHEST LEADS] Electronically signed by : JYOTI PEREZ, 08/06/2023 15:01:13
--- NOTE | 2023-08-04 14:44 | PC.NURSE ---
DR NICOLAS AT BEDSIDE
--- NOTE | 2023-08-04 14:46 | CT_ITS ---
PROCEDURE INFORMATION: Exam: CTA Neck With Contrast Exam date and time: 08/04/2023 3:42 PM Age: 68 years old Clinical indication: Injury or trauma; Fall; Blunt trauma; Head and neck; Additional info: Fall, blurred vision, vertigo TECHNIQUE: Imaging protocol: Computed tomographic angiography of the neck with contrast. Exam focused on the cervical segments of the vasculature. 3D rendering (Not supervised by radiologist): MIP and/or 3D reconstructed images were created by the technologist. Radiation optimization: All CT scans at this facility use at least one of these dose optimization techniques: automated exposure control; mA and/or kV adjustment per patient size (includes targeted exams where dose is matched to clinical indication); or iterative reconstruction. Contrast material: ISOVUE 370; Contrast volume: 100 ml; Contrast route: INTRAVENOUS (IV); COMPARISON: CT CERVICAL SPINE WO CON 08/04/2023 3:33 PM FINDINGS: Right common carotid artery: No stenosis. No dissection or occlusion. Right internal carotid artery: 50-69% stenosis in the origin of the extracranial segment due to calcified plaque that extends approximately 25 mm. No dissection or occlusion. Right external carotid artery: No occlusion or stenosis of the origin. Left common carotid artery: No stenosis. No dissection or occlusion. Left internal carotid artery: No stenosis of the extracranial segment. No dissection or occlusion. Left external carotid artery: No occlusion or stenosis of the origin. Right vertebral artery: No stenosis. No dissection or occlusion. Left vertebral artery: No stenosis. No dissection or occlusion. Soft tissues: No masses or edema. Bones/joints: No acute fracture, subluxations, or bone lesions. Degenerative disc space narrowing and facet hypertrophy at multiple levels of the cervical spine. IMPRESSION: Moderate (50-69%) stenosis in the origin of the right internal carotid artery due to calcified plaque. No other arterial stenosis or occlusion in the neck. REFERENCES: NASCET CRITERIA. The degree of stenosis in the cervical segment of the internal carotid artery is based on NASCET criteria. Normal is no stenosis. Mild is less than 50% stenosis. Moderate is 50-69% stenosis. Severe is 70% to 99% stenosis. Total occlusion is no detectable patent lumen.
--- NOTE | 2023-08-04 14:46 | XR_ITS ---
PROCEDURE INFORMATION: Exam: XR Chest Exam date and time: 08/04/2023 3:42 PM Age: 68 years old Clinical indication: Injury or trauma; Fall; Blunt trauma (contusions or hematomas); Additional info: Fall, blurred vision, vertigo TECHNIQUE: Imaging protocol: Radiologic exam of the chest. Views: 1 view. COMPARISON: CR XR CHEST PORTABLE 07/27/2023 5:19 PM FINDINGS: Lungs: Unremarkable. No consolidation. Pleural spaces: Unremarkable. No pleural effusion. No pneumothorax. Heart/Mediastinum: Unremarkable. No cardiomegaly. Bones/joints: Unremarkable. IMPRESSION: No acute findings.
--- NOTE | 2023-08-04 14:46 | XR_ITS ---
PROCEDURE INFORMATION: Exam: XR Pelvis Exam date and time: 08/04/2023 3:42 PM Age: 68 years old Clinical indication: Injury or trauma; Fall; Blunt trauma (contusions or hematomas); Bilateral; Hip and pelvic region TECHNIQUE: Imaging protocol: Radiologic exam of the pelvis. Views: 1 or 2 view. COMPARISON: CR XR PELVIS 1-2V 06/13/2019 9:30 PM FINDINGS: Bones/joints: Degenerative changes in both hips and sacroiliac joints. There is no evidence of acute fracture.There is no evidence of malalignment or dislocation. Soft tissues: Unremarkable. IMPRESSION: There is no evidence of acute fracture.There is no evidence of malalignment or dislocation.
--- NOTE | 2023-08-04 14:46 | CT_ITS ---
PROCEDURE INFORMATION: Exam: CT Head Without Contrast Exam date and time: 08/04/2023 3:30 PM Age: 68 years old Clinical indication: Injury or trauma; Fall; Blunt trauma (contusions or hematomas); Additional info: Fall, blurred vision, vertigo TECHNIQUE: Imaging protocol: Computed tomography of the head without contrast. Radiation optimization: All CT scans at this facility use at least one of these dose optimization techniques: automated exposure control; mA and/or kV adjustment per patient size (includes targeted exams where dose is matched to clinical indication); or iterative reconstruction. COMPARISON: CT HEAD/BRAIN WO CON 06/13/2019 9:12 PM FINDINGS: Brain: No hemorrhage. No intra-axial or extra-axial lesions or masses. Sub cm focus of low density in the anterior horn right internal capsule may be an old lacunar infarction but is similar to 06/13/2019. No midline shift. Cerebral ventricles: No ventriculomegaly. Paranasal sinuses: Visualized sinuses are well aerated. No fluid levels. Mastoid air cells: Visualized mastoid air cells are well aerated. Bones: No acute fractures or bone lesions. Soft tissues: No abnormalities. IMPRESSION: No acute intracranial abnormalities. No interval change since 06/13/2019.
--- NOTE | 2023-08-04 14:46 | CT_ITS ---
PROCEDURE INFORMATION: Exam: CTA Head With Contrast, Arteriography Exam date and time: 08/04/2023 3:42 PM Age: 68 years old Clinical indication: Injury or trauma; Fall; Blunt trauma; Head and neck; Additional info: Fall, blurred vision, vertigo TECHNIQUE: Imaging protocol: Computed tomographic angiography of the head with contrast. Exam focused on the arteries. 3D rendering (Not supervised by radiologist): MIP and/or 3D reconstructed images were created by the technologist. Radiation optimization: All CT scans at this facility use at least one of these dose optimization techniques: automated exposure control; mA and/or kV adjustment per patient size (includes targeted exams where dose is matched to clinical indication); or iterative reconstruction. Contrast material: ISOVUE 370; Contrast volume: 100 ml; Contrast route: INTRAVENOUS (IV); COMPARISON: CT HEAD/BRAIN WO CON 08/04/2023 3:30 PM FINDINGS: ANTERIOR CIRCULATION: Right internal carotid artery: Intracranial segment is patent with no significant stenosis. No aneurysm. Right middle cerebral artery: No occlusion or significant stenosis. No aneurysm. Right anterior cerebral artery: No occlusion or significant stenosis. No aneurysm. Left internal carotid artery: Intracranial segment is patent with no significant stenosis. No aneurysm. Left middle cerebral artery: No occlusion or significant stenosis. No aneurysm. Left anterior cerebral artery: No occlusion or significant stenosis. No aneurysm. POSTERIOR CIRCULATION: Right vertebral artery: No occlusion or significant stenosis. No aneurysm. Left vertebral artery: No occlusion or significant stenosis. No aneurysm. Basilar artery: No occlusion or significant stenosis. No aneurysm. Right posterior cerebral artery: No occlusion or significant stenosis. No aneurysm. Left posterior cerebral artery: No occlusion or significant stenosis. No aneurysm. Brain: No definite mass, mass effect, or midline shift. Cerebral ventricles: No ventriculomegaly. Bones/joints: No acute fracture or focal bone lesions. Soft tissues: No masses or swelling. IMPRESSION: No large vessel occlusion. No acute intracranial abnormalities.
--- NOTE | 2023-08-04 14:48 | HMH.EDGENADL ---
Discharge Plan Disposition Patient Disposition: Admitted Prescriptions Prescriptions: No Action lisinopril-hydrochlorothiazide 20-12.5 mg tablet 1 tab PO DAILY pravastatin 40 mg tablet 40 mg PO DAILY spironolactone 25 mg tablet 25 mg PO DAILY allopurinol 300 mg tablet 300 mg PO DAILY furosemide 20 mg tablet 20 mg PO DAILY verapamil 240 mg capsule,ext rel. pellets 24 hr 240 mg PO DAILY metformin 750 mg tablet extended release 24 hr 750 mg PO DAILY Referrals Follow up/Referrals: Provider,Referral, MD [Primary Care Provider] - See instructions Clinical Impressions Clinical Impression: Physical deconditioning, Adult failure to thrive Discharge ED Provider: Ashley Guerra General Adult HPI <Ashley Guerra DO - Last Filed: 08/04/23 15:01> General Chief complaint: Weakness Stated complaint: Fall, back pain, recent transfer to [facility] Seen by Provider: 08/04/23 14:45 History of Present Illness HPI narrative: This patient is a 68-year-old male with a history of alcoholic cirrhosis presenting to the emergency department for evaluation with concern for blurred vision after a fall. His fall was yesterday, and he landed mostly on his left side. He states that his walker rolled out from under him and he fell. He is having visual changes as well as back pain since then. He did not hit his head or lose consciousness during that time. He denies any significant headache, numbness, tingling, unilateral weakness, or other concerns. He does note overall he is very generally weak without focal deficits. He does note some dizziness. He states that his vision is blurred and it seems like things are jumping around. He notes this is only been going on since the fall. He denies experiencing like this prior to that. Denies any recent fevers, cough, congestion, chest pain, shortness of breath, abdominal pain, nausea, vomiting, changes bowel movements, or other concerns. Of note, patient was evaluated here 07/27/2023 with concern for worsening generalized weakness over the last several weeks. He was deemed to be that the patient had decompensated cirrhosis with EWA and he was transferred to [facility] for further evaluation and management. He is unsure what happened there and he and his cannot provide any further history as far as what treatments he underwent and his discharge plan. He did have a paracentesis here at that time which is not concerning for SBP. His brings him in and reports that she can no longer care for him at home because he cannot get up to do anything for himself. Of note, she states that they were seen in Mani's office yesterday and were told that his blood pressure has been too low, so he should be holding his blood pressure medication at home. They had still been administering it up until today. Related Data Home Medications Medication Instructions Recorded Confirmed allopurinol 300 mg tablet 300 mg PO DAILY 08/04/23 08/04/23 furosemide 20 mg tablet 20 mg PO DAILY 08/04/23 08/04/23 lisinopril 20 1 tab PO DAILY 08/04/23 08/04/23 mg-hydrochlorothiazide 12.5 mg tablet metformin 750 mg tablet,extended 750 mg PO DAILY 08/04/23 08/04/23 release 24 hr pravastatin 40 mg tablet 40 mg PO DAILY 08/04/23 08/04/23 spironolactone 25 mg tablet 25 mg PO DAILY 08/04/23 08/04/23 verapamil 240 mg 24 hr 240 mg PO DAILY 08/04/23 08/04/23 capsule,extended release Allergies Allergy/AdvReac Type Severity Reaction Status Date / Time No Known Allergies Allergy Verified 06/13/19 20:46 [facility] <Ashley Guerra DO - Last Filed: 08/04/23 15:01> [facility] Disclaimer: The information contained in this section may have been updated after the patient was seen, as this information can be updated by other users. Medical History Cirrhosis Hypertension Diabetes mellitus Gout Social History Smoking Status: Current every day smoker tobacco type: cigarettes packs per day: 1 alcohol intake: former current occupational status: unemployed Travel in the last 8 weeks: None <Ashley Guerra DO - Last Filed: 08/04/23 15:01> ROS Obtained: Yes All systems reviewed & no additional complaints except as documented Physical Exam <Ashley Guerra DO - Last Filed: 08/04/23 15:01> General General appearance: alert and in no apparent distress Comment: Unkempt with poor dentition and soiled clothes Head Head exam: atraumatic and normocephalic Eye Eye exam: Present PERRL, EOMI and nystagmus (Bilateral horizontal unidirectional nystagmus that is fatigable) ENT ENT exam: Present normal oropharynx, mucous membranes moist, normal external ear exam and other (Poor dentition) Neck Neck exam: Present normal inspection, full ROM and trachea midline; Absent tenderness Chest Chest inspection: Present normal inspection and symmetric chest wall rise; Absent tenderness Respiratory Respiratory exam: Present normal lung sounds bilaterally; Absent respiratory distress, wheezes, stridor or accessory muscle use Cardiovascular Cardiovascular exam: Present regular rate and normal rhythm Abdominal Exam Abdominal exam: Present soft and distention; Absent tenderness, guarding, rebound or rigidity Extremities Exam Extremities exam: Present full ROM, normal capillary refill and other (Scattered bruising and abrasions with no bony tenderness or deformity); Absent tenderness or edema Back Exam Back exam: Present normal inspection and full ROM; Absent tenderness Neurological Exam Neurological exam: Present alert, oriented X3, CN II-XII intact and normal gait; Absent motor sensory deficit Psychiatric Psychiatric exam: Present normal affect and normal mood Skin Skin exam: Present warm, dry, pallor and other (Scattered bruising and abrasions to the bilateral upper extremities) Medical Decision Making <Ashley Guerra, DO - Last Filed: 08/04/23 15:01> Medical Records Medical records reviewed: Yes I reviewed the patient's medical records. Jovany Inquiry Pt receiving controlled substance: No Vital Signs: 08/04/23 14:38 Temperature 98.6 F Temperature Source Oral Pulse Rate [Right] 83 Respiratory Rate 19 Blood Pressure [Right Arm] 161/113 H Blood Pressure Mean [Right Arm] 129 Blood Pressure Source [Right Arm] Automatic Cuff 02 Sat by Pulse Oximetry 99 Oxygen Delivery Method Room Air Lab Data Lab results reviewed: Yes I reviewed the patient's lab results. Lab Results 08/04/23 14:48: WBC 7.2, RBC 3.50 L, Hgb 10.9 L, Hct 34.2 L, MCV 97.9 H, MCH 31.0, MCHC 31.7 L, RDW 15.0, Plt Count 154, MPV 10.0, Neut % (Auto) 81.7 H, Lymph % (Auto) 13.6, [place] % (Auto) 3.5, Eos % (Auto) 0.9, Baso % (Auto) 0.2, Neut # (Auto) 5.8, Lymph # (Auto) 1.0, [place] # (Auto) 0.3, Eos # (Auto) 0.1, Baso # (Auto) 0.0, PT 12.2, INR 1.10, APTT 26.5, Sodium 129 L, Potassium 4.1, Chloride 97 L, Carbon Dioxide 20 L, Anion Gap 16.1 H, BUN 28 H, Creatinine 1.30 H, Estimated Creat Clear 59, Estimated GFR 55 L, Est GFR ( Amer) 67, Glucose 127 H, Calcium 8.3 L, Magnesium 0.6 L, Total Bilirubin 0.7, AST 30, ALT 25, Alkaline Phosphatase 91, Total Protein 6.1 L, Albumin 3.3 L, Globulin 2.8, Albumin/Globulin Ratio 1.2 08/04/23 14:48 08/04/23 14:48 Orders (Tests/Meds): ED MEDICATIONS Generic Name Dose Route Start Last Admin Trade Name Freq PRN Reason Stop Dose Admin Multivitamins 10 ml/ Thiamine 1,015 mls @ 500 mls/hr 08/04/23 15:29 08/04/23 15:56 HCl 100 mg/ Magnesium Sulfate IV 08/04/23 17:30 500 mls/hr 2 gm/ Lactated Ringer's .Q2H2M ONE Administration Discontinued Medications Generic Name Dose Route Start Last Admin Trade Name Freq PRN Reason Stop Dose Admin Folic Acid 1 mg 08/04/23 15:28 08/04/23 15:55 Folic Acid 1mg Tablet PO 08/04/23 15:29 1 mg ONCE ONE Administration Magnesium Sulfate 2 gm in 50 mls @ 100 mls/hr 08/04/23 15:19 08/04/23 15:54 Magnesium Sulfate 2gm/50ml Premix IV 08/04/23 15:48 100 mls/hr ONCE ONE Administration Iopamidol 100 ml 08/04/23 15:42 08/04/23 15:44 Iopamidol-370 (76%);100ml Bottle IV 08/04/23 15:43 100 ml ONCE ONE Administration Magnesium Oxide 800 mg 08/04/23 15:19 08/04/23 15:55 Magnesium Oxide 400mg Tablet PO 08/04/23 15:20 800 mg ONCE ONE Administration Morphine Sulfate 4 mg 08/04/23 15:28 08/04/23 15:33 Morphine 4mg/Ml Syringe IV 08/04/23 15:29 4 mg ONCE ONE Administration Ondansetron HCl 4 mg 08/04/23 15:28 08/04/23 15:33 Ondansetron 4mg/2ml Vial IV 08/04/23 15:29 4 mg ONCE ONE Administration Sodium Chloride 10 ml 08/04/23 15:42 08/04/23 15:44 Sodium Chloride 0.9% 10ml Syr (Rad Only) IV 08/04/23 15:43 10 ml ONCE ONE Administration Sodium Chloride 50 ml 08/04/23 15:42 08/04/23 15:43 0.9 % Sodium Chloride 50 Ml Vial IV 08/04/23 15:43 50 ml ONCE ONE Administration ORDERS Category Date Time Status CT angio head Stat Cat Scan 08/04/23 14:[address] angio neck Stat Cat Scan 08/04/23 14:[address] cervical spine wo con Stat Cat Scan 08/04/23 14:[address] head/brain wo con Stat Cat Scan 08/04/23 14:[address] lumbar spine wo con Stat Cat Scan 08/04/23 14:[address] thoracic spine wo con Stat Cat Scan 08/04/23 14:49 Completed XR chest portable Stat Exams 08/04/23 14:46 Completed XR pelvis 1-2V Stat Exams 08/04/23 14:46 Completed Activated Partial Thrombo Time Stat Lab 08/04/23 14:48 Completed Complete Blood Count Auto Diff Stat Lab 08/04/23 14:48 Completed Comprehensive Metabolic Panel Stat Lab 08/04/23 14:48 Completed Magnesium Stat Lab 08/04/23 14:48 Completed Prothrombin Time INR Stat Lab 08/04/23 14:48 Completed UA [Urinalysis and Microscopic] Stat Lab 08/04/23 14:46 Ordered ECG Data Tracing #1: I reviewed this ECG and interpreted as documented below: Normal sinus rhythm with a ventricular rate of [address] changes concerning for ischemia. Normal axis and intervals. ECG initial impression date: 08/04/23 ECG initial impression time: 14:45 Medical Decision Narrative: In summary, this patient is a 68-year-old male presenting to the Emergency Department for evaluation of vision changes and back pain after mechanical ground-level fall yesterday as well as progressively worsening general weakness for some time now in the setting of alcoholic cirrhosis. Differential diagnoses considered include but are not limited to intracranial hemorrhage, CVA, vertigo, concussion, polytrauma, decompensated cirrhosis, EWA, dehydration. Ruling out the most morbid conditions drove assessment. It should be noted patient's history includes cirrhosis and renal insufficiency which are not at goal therapy. This complicates all aspects of care by increasing patient's risk for morbidity. I reviewed patient's past medical records and noted previous evaluation here 07/27/2023 as per HPI. On exam, the patient is sitting upright in bed in no acute distress. He is alert and oriented x 4 with no focal neurologic deficits. He does have horizontal unidirectional beating nystagmus that could indicate vertigo in the setting of dizziness and visual disturbance, as he states that things seem to be jumping around sometimes. Complicating this patient's visit is the no longer feels that she is able to care for him at home given his progressively worsening weakness. Workup included broad lab evaluation to evaluate for metabolic or infectious cause of the patient's decline as well as CT imaging to evaluate for potential stroke versus traumatic injury. Patient care signed to the oncoming provider, Dr. Candelario, pending workup and disposition. <Arben Candelario MD - Last Filed: 08/04/23 17:09> Vital Signs: 08/04/23 14:38 Temperature 98.6 F Temperature Source Oral Pulse Rate [Right] 83 Respiratory Rate 19 Blood Pressure [Right Arm] 161/113 H Blood Pressure Mean [Right Arm] 129 Blood Pressure Source [Right Arm] Automatic Cuff 02 Sat by Pulse Oximetry 99 Oxygen Delivery Method Room Air Lab Data Lab Results 08/04/23 14:48: WBC 7.2, RBC 3.50 L, Hgb 10.9 L, Hct 34.2 L, MCV 97.9 H, MCH 31.0, MCHC 31.7 L, RDW 15.0, Plt Count 154, MPV 10.0, Neut % (Auto) 81.7 H, Lymph % (Auto) 13.6, [place] % (Auto) 3.5, Eos % (Auto) 0.9, Baso % (Auto) 0.2, Neut # (Auto) 5.8, Lymph # (Auto) 1.0, [place] # (Auto) 0.3, Eos # (Auto) 0.1, Baso # (Auto) 0.0, PT 12.2, INR 1.10, APTT 26.5, Sodium 129 L, Potassium 4.1, Chloride 97 L, Carbon Dioxide 20 L, Anion Gap 16.1 H, BUN 28 H, Creatinine 1.30 H, Estimated Creat Clear 59, Estimated GFR 55 L, Est GFR ( Amer) 67, Glucose 127 H, Calcium 8.3 L, Magnesium 0.6 L, Total Bilirubin 0.7, AST 30, ALT 25, Alkaline Phosphatase 91, Total Protein 6.1 L, Albumin 3.3 L, Globulin 2.8, Albumin/Globulin Ratio 1.2 Orders (Tests/Meds): ED MEDICATIONS Generic Name Dose Route Start Last Admin Trade Name Freq PRN Reason Stop Dose Admin Multivitamins 10 ml/ Thiamine 1,015 mls @ 500 mls/hr 08/04/23 15:29 08/04/23 15:56 HCl 100 mg/ Magnesium Sulfate IV 08/04/23 17:30 500 mls/hr 2 gm/ Lactated Ringer's .Q2H2M ONE Administration Discontinued Medications Generic Name Dose Route Start Last Admin Trade Name Freq PRN Reason Stop Dose Admin Folic Acid 1 mg 08/04/23 15:28 08/04/23 15:55 Folic Acid 1mg Tablet PO 08/04/23 15:29 1 mg ONCE ONE Administration Magnesium Sulfate 2 gm in 50 mls @ 100 mls/hr 08/04/23 15:19 08/04/23 15:54 Magnesium Sulfate 2gm/50ml Premix IV 08/04/23 15:48 100 mls/hr ONCE ONE Administration Iopamidol 100 ml 08/04/23 15:42 08/04/23 15:44 Iopamidol-370 (76%);100ml Bottle IV 08/04/23 15:43 100 ml ONCE ONE Administration Magnesium Oxide 800 mg 08/04/23 15:19 08/04/23 15:55 Magnesium Oxide 400mg Tablet PO 08/04/23 15:20 800 mg ONCE ONE Administration Morphine Sulfate 4 mg 08/04/23 15:28 08/04/23 15:33 Morphine 4mg/Ml Syringe IV 08/04/23 15:29 4 mg ONCE ONE Administration Ondansetron HCl 4 mg 08/04/23 15:28 08/04/23 15:33 Ondansetron 4mg/2ml Vial IV 08/04/23 15:29 4 mg ONCE ONE Administration Sodium Chloride 10 ml 08/04/23 15:42 08/04/23 15:44 Sodium Chloride 0.9% 10ml Syr (Rad Only) IV 08/04/23 15:43 10 ml ONCE ONE Administration Sodium Chloride 50 ml 08/04/23 15:42 08/04/23 15:43 0.9 % Sodium Chloride 50 Ml Vial IV 08/04/23 15:43 50 ml ONCE ONE Administration ORDERS Category Date Time Status CT angio head Stat Cat Scan 08/04/23 14:[address] angio neck Stat Cat Scan 08/04/23 14:[address] cervical spine wo con Stat Cat Scan 08/04/23 14:[address] head/brain wo con Stat Cat Scan 08/04/23 14:[address] lumbar spine wo con Stat Cat Scan 08/04/23 14:[address] thoracic spine wo con Stat Cat Scan 08/04/23 14:49 Completed XR chest portable Stat Exams 08/04/23 14:46 Completed XR pelvis 1-2V Stat Exams 08/04/23 14:46 Completed Activated Partial Thrombo Time Stat Lab 08/04/23 14:48 Completed Complete Blood Count Auto Diff Stat Lab 08/04/23 14:48 Completed Comprehensive Metabolic Panel Stat Lab 08/04/23 14:48 Completed Magnesium Stat Lab 08/04/23 14:48 Completed Prothrombin Time INR Stat Lab 08/04/23 14:48 Completed UA [Urinalysis and Microscopic] Stat Lab 08/04/23 14:46 Ordered Medical Decision Narrative: In summary, this patient is a 68-year-old male presenting to the Emergency Department for evaluation of vision changes and back pain after mechanical ground-level fall yesterday as well as progressively worsening general weakness for some time now in the setting of alcoholic cirrhosis. Differential diagnoses considered include but are not limited to intracranial hemorrhage, CVA, vertigo, concussion, polytrauma, decompensated cirrhosis, EWA, dehydration. Ruling out the most morbid conditions drove assessment. It should be noted patient's history includes cirrhosis and renal insufficiency which are not at goal therapy. This complicates all aspects of care by increasing patient's risk for morbidity. I reviewed patient's past medical records and noted previous evaluation here 07/27/2023 as per HPI. On exam, the patient is sitting upright in bed in no acute distress. He is alert and oriented x 4 with no focal neurologic deficits. He does have horizontal unidirectional beating nystagmus that could indicate vertigo in the setting of dizziness and visual disturbance, as he states that things seem to be jumping around sometimes. Complicating this patient's visit is the no longer feels that she is able to care for him at home given his progressively worsening weakness. Workup included broad lab evaluation to evaluate for metabolic or infectious cause of the patient's decline as well as CT imaging to evaluate for potential stroke versus traumatic injury. Patient care signed to the oncoming provider, Dr. Candelario, pending workup and disposition. Andree: I assumed primary responsibility for this patient after signout from previous physician. Independent rotation patient's workup demonstrates no white count. Hemoglobin stable at 10.9. Platelets also normal at 154. INR 1.1. Chemistry with stable hyponatremia 129. BUN 28, creatinine 1.3 concerning for prerenal EWA. Patient given rally pack for this. Magnesium low 0.6. Independent interpretation of imaging demonstrates chest x-ray and pelvis x-ray without acute bony abnormalities, no pneumothorax or intrathoracic abnormality. CT trauma scans acute T12 fracture, but no significant height loss or retropulsion. No cervical or lumbar injuries. No intracranial abnormality. No other abnormalities of the chest, abdomen, pelvis. Independent interpretation of EKG with sinus rhythm 85 beats a minute no ST or T wave changes concerning for acute ischemia. Patient's NC interval 121, QRS 87, QTc 421. [place] normal. Further conversation with family demonstrates that patient has been unable to get out of his chair, urinating in a jar and they have been emptying it, has not been able to get up to shower and weeks, unable to care for himself. Patient family unable to assist given their size and comorbidities relative to his. Hospitalist was contacted and case was discussed at length for adult failure to thrive, physical therapy and potential placement. Because patient high risk for clinical decompensation, deemed appropriate for inpatient admission. Results were relayed to patient who voiced understanding and patient was agreeable to inpatient admission and management. Patient was admitted to the hospital for further definitive management. Critical Care <Ashley Guerra, DO - Last Filed: 08/04/23 15:01> Critical Care Time Critical Care Time: No
--- NOTE | 2023-08-04 14:49 | CT_ITS ---
PROCEDURE INFORMATION: Exam: CT Thoracic Spine Without Contrast Exam date and time: 08/04/2023 3:35 PM Age: 68 years old Clinical indication: Injury or trauma; Fall; Blunt trauma (contusions or hematomas); Additional info: Fall, pain TECHNIQUE: Imaging protocol: Computed tomography of the thoracic spine without contrast. Radiation optimization: All CT scans at this facility use at least one of these dose optimization techniques: automated exposure control; mA and/or kV adjustment per patient size (includes targeted exams where dose is matched to clinical indication); or iterative reconstruction. COMPARISON: CT CERVICAL SPINE WO CON 08/04/2023 3:33 PM FINDINGS: Bones/joints: Calcification of the longitudinal ligament. There is a lucency through the T12 vertebral body seen well ( sagittal image 48, series 1002. Coronal series 1001 image 50 -52 ) Findings consistent with acute fracture. No dislocation Soft tissues: Unremarkable. IMPRESSION: Calcification of the longitudinal ligament. There is a lucency through the T12 vertebral body seen well ( sagittal image 48, series 1002. Coronal series 1001 image 50 -52 ) Findings consistent with acute fracture.
--- NOTE | 2023-08-04 14:49 | CT_ITS ---
PROCEDURE INFORMATION: Exam: CT Cervical Spine Without Contrast Exam date and time: 08/04/2023 3:33 PM Age: 68 years old Clinical indication: Injury or trauma; Fall; Blunt trauma; Additional info: Fall, pain TECHNIQUE: Imaging protocol: Computed tomography of the cervical spine without contrast. Radiation optimization: All CT scans at this facility use at least one of these dose optimization techniques: automated exposure control; mA and/or kV adjustment per patient size (includes targeted exams where dose is matched to clinical indication); or iterative reconstruction. COMPARISON: CT CERVICAL SPINE WO CON 06/13/2019 9:15 PM FINDINGS: Bones: No acute fracture. Normal alignment. No significant disc bulge or herniation. No severe spinal canal stenosis. No significant neural foraminal narrowing. Lungs: Lung apices are normal. Soft tissues: No paraspinal or prevertebral soft tissue masses. IMPRESSION: 1. No acute findings in the cervical spine. 2. Multilevel degenerative disc disease and facet hypertrophy.
--- NOTE | 2023-08-04 14:49 | CT_ITS ---
PROCEDURE INFORMATION: Exam: CT Lumbar Spine Without Contrast Exam date and time: 08/04/2023 3:39 PM Age: 68 years old Clinical indication: Injury or trauma; Fall; Blunt trauma (contusions or hematomas); Additional info: Fall, pain TECHNIQUE: Imaging protocol: Computed tomography of the lumbar spine without contrast. Radiation optimization: All CT scans at this facility use at least one of these dose optimization techniques: automated exposure control; mA and/or kV adjustment per patient size (includes targeted exams where dose is matched to clinical indication); or iterative reconstruction. COMPARISON: CT THORACIC SPINE WO CON 08/04/2023 3:35 PM FINDINGS: Bones/joints: There is no evidence of acute fracture of the lumbar spine.There is no evidence of malalignment or dislocation. There are 6 rib less lumbar vertebral bodies. Anterior osteophyte formation L1 through L6 . Bridging anterior and lateral osteophytes Soft tissues: Unremarkable. IMPRESSION: 1. There is no evidence of acute fracture of the lumbar spine.There is no evidence of malalignment or dislocation. 2. There are 6 rib less lumbar vertebral bodies.
[2023-08-04 15:03] LABS: Basophils % 0.2 % (0.1-2.0); Eosinophils # 0.1 K/mm3 (0.0-0.4); Eosinophils % 0.9 % (0.1-12.0); Hematocrit 34.2 % (42.0-52.0); Hemoglobin 10.9 g/dL (14.1-18.0); Lymphocytes % 13.6 % (10-50); Mean Corpuscular HGB Conc 31.7 g/dL (31.8-35.4); Mean Corpuscular Volume 97.9 fl (80-94); Monocytes # 0.3 K/mm3 (0.1-1.0); Monocytes % 3.5 % (1.7-9.3); Neutrophils # 5.8 K/mm3 (1.8-7.8); Neutrophils % 81.7 % (37.0-80.0); Platelet Count 154 K/mm3 (142-424); White Blood Count 7.2 K/mm3 (4.8-10.8)
[2023-08-04 15:16] LABS: Alanine Aminotransferase 25 U/L (12-78); Albumin Level 3.3 g/dl (3.5-5.0); Albumin/Globulin Ratio 1.2 (1.1-1.8); Alkaline Phosphatase 91 U/L (38-126); Anion Gap 16.1 mEq/L (5-15); Aspartate Amino Transferase 30 U/L (17-59); Bilirubin,Total 0.7 mg/dl (0.2-1.3); Blood Urea Nitrogen 28 mg/dl (9-20); Calcium 8.3 mg/dl (8.4-10.2); Carbon Dioxide 20 mmol/L (22.0-30.0); Chloride 97 mmol/L (98-107); Creatinine Clearance Estimated 59 mL/min (50-200); Estimated Glomerular Filt Rate 55 ml/min (>60); GFR (African American) 67 ML/MIN (>60); Globulin 2.8 g/dL (1.3-3.2); Glucose 127 mg/dl (74-100); Potassium 4.1 mmoL/L (3.5-5.1); Sodium 129 mmol/L (136-145); Total Protein,Serum 6.1 g/dl (6.3-8.2)
[2023-08-04 15:19] LABS: Magnesium 0.6 mg/dl (1.6-2.3)
[2023-08-04 15:21] LABS: Activated Partial Thrombo Time 26.5 seconds (22.8-30.6); Prothrombin Time 12.2 seconds (10.1-12.5)
--- NOTE | 2023-08-04 15:22 | PC.NURSE ---
pt out of room with Rad for CT
--- NOTE | 2023-08-04 15:23 | PC.NURSE ---
PT TO CT
--- NOTE | 2023-08-04 15:30 | PC.NURSE ---
pt is in ct and vegetable grader called stating pt is refusing to lay down unless he receives pain medication
[2023-08-04] MEDS: MORPHINE 4MG/ML SYRINGE 4 MG IV (15:33)
[2023-08-04] MEDS: ONDANSETRON 4MG/2ML VIAL 4 MG IV (15:33)
[2023-08-04] MEDS: 0.9 % SODIUM CHLORIDE 50 ML VIAL IV (15:43)
[2023-08-04] MEDS: SODIUM CHLORIDE 0.9% 10ML SYR (RAD ONLY) 10 ML IV (15:44)
[2023-08-04] MEDS: IOPAMIDOL-370 (76%);100ML BOTTLE 100 ML IV (15:44)
--- NOTE | 2023-08-04 15:50 | PC.NURSE ---
pt back in room from CT
[2023-08-04] MEDS: MAGNESIUM SULFATE IN WATER 2 GM/50 ML PIGGYBACK IV (15:54)
[2023-08-04] MEDS: MAGNESIUM OXIDE 400MG TABLET 800 MG PO (15:55)
[2023-08-04] MEDS: FOLIC ACID 1MG TABLET 1 MG PO (15:55)
[2023-08-04] MEDS: MVI, ADULT NO.1 WITH VIT K 10 ML, THIAMINE HCL 100 MG, MAGNESIUM SULFATE 2 GM in LACTAT... 500 ML IV (15:56)
--- NOTE | 2023-08-04 16:51 | PC.NURSE ---
Dr. Candelario s/w pt & family
--- NOTE | 2023-08-04 16:57 | PC.NURSE ---
DR PEREZ SPEAKING WITH DR NAIDU FOR ADMISSION
--- NOTE | 2023-08-04 17:00 | PC.NURSE ---
called for bed assignment on patient. informed Dr. Alonso accepted pt, pt's chart states he is a Dr. Singleton pt. Dr. Singleton to be contacted in regards to admission then bed assignment to be completed.
--- NOTE | 2023-08-04 17:09 | PC.NURSE ---
DR LOW CONTACTED TO CALL ED PROVIDER
[2023-08-04 17:16] LABS: Microscopic, Urine URINE MICROSCOPIC (MICROSCOPIC)
--- NOTE | 2023-08-04 17:18 | PC.NURSE ---
DR PEREZ SPEAKING WITH DR LOW
[2023-08-04 17:21] LABS: Appearance,Urine CLEAR (Clear); Blood, Urine Negative (Negative); Color,Urine YELLOW (Yellow); Glucose,Urine (UA) Negative (Negative); Ketones,Urine TRACE (Negative); Leukocyte Esterase,Urine Negative (Negative); Nitrate,Urine Negative (Negative); PH,Urine 5.5 (5.0-8.5); Protein,Urine 1+ (Negative); Urobilinogen,Urine 0.2 EU/dl (0.2)
--- NOTE | 2023-08-04 17:24 | PC.NURSE ---
PT ACCEPTED BY DR LOW
--- NOTE | 2023-08-04 17:25 | PC.NURSE ---
pt admitted to room 203. admissions called at this time.
[2023-08-04 17:27] LABS: Bilirubin,Urine 1+ (Negative)
[2023-08-04 17:41] LABS: Ethyl Alcohol < 10 mg/dl (0-10)
--- NOTE | 2023-08-04 18:07 | PC.NURSE ---
gave report to Issa Piedra RN on Med/Surg
--- NOTE | 2023-08-04 19:46 | PC.NURSE ---
Pt requested a nicotine patch, Had Dr. Singleton paged
--- NOTE | 2023-08-04 19:52 | PC.NURSE ---
Call back from Dr. Singleton, new orders for tylenol, zofran, CIWA protocol, and 21mg nicotine patch.
[2023-08-04] MEDS: NICOTINE 21MG/24HR PATCH 21 MG TD (21:30)
[2023-08-05] VITALS: BP 139/85; PULSE 70; PULSE 75; RESP 18; TEMP 36.9; O2SAT 97
[2023-08-05 04:00] VITALS: BP 126/78; PULSE 70; PULSE 78; RESP 18; TEMP 36.6; O2SAT 98; BMI 25.6
--- NOTE | 2023-08-05 04:54 | PC.NURSE ---
Pt is alert and oriented x4 and currently tolerating RA well. Pt has had no complaints this shift and denies pain and discomfort. Pt has not been scoring on the CIWA and has not required any medications this shift other than a requested nicotine patch. after being offered a HS snack Pt told staff that he has no desire to eat and that the texture of foods disgust him so he barely eats. Pt is pleasant and denies needs
[2023-08-05] MEDS: ACETAMINOPHEN 325MG TAB 650 MG PO (06:51)
[2023-08-05 08:00] VITALS: BP 134/74; PULSE 74; PULSE 82; RESP 18; TEMP 36.4; O2SAT 100
--- NOTE | 2023-08-05 09:00 | HMH.PHAINT1 ---
Pharmacy Intervention Comments: MEDICATION RECONCILIATION COMPLETE USING EXTERNAL PHARMACY FILL HISTORY.
--- NOTE | 2023-08-05 09:30 | P.HP_ITS ---
History of Present Illness *Admission Date: 08/04/23 *Reason for visit:: Fall/weakness *History of present illness: Mr. Simons is a 68 year old patient of [facility]. He presented to the ER at [facility] yesterday due to progressive weakness and falls. 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 He did have an ER visit last week for similar issues. He was transferred to [facility] for further evaluation. From the records available to me to review today, he was kept there about a day and a half and was given IV fluids and discharged without having an evaluation of his mobility or seeing a GI doctor. He has a long history of alcoholism and has had failing healthy over the past few months. He states he last drank alcohol about 1 month ago. He was diagnosed with ascities and liver cirrhosis and has an initial visit with GI scheduled for next month. He has had a 30 lbs weight loss over the past 2 months. [facility] Disclaimer: The information contained in this section may have been updated after the patient was seen, as this information can be updated by other users. Medical History (Updated 08/05/23 @ 09:48 by Jairo Singleton MD) Nicotine dependence, unspecified, uncomplicated Colon polyps DM type 2 (diabetes mellitus, type 2) Hyperlipidemia Alcoholism Cirrhosis Hypertension Diabetes mellitus Gout Surgical History (Updated 08/05/23 @ 09:39 by Jairo Singleton MD) History of colonoscopy Social History (Updated 08/04/23 @ 17:33 by Elizabeth Flood RN) Smoking Status: Current every day smoker tobacco type: cigarettes packs per day: 1 alcohol intake: former current occupational status: unemployed Travel in the last 8 weeks: None Review of Systems Constitutional Constitutional: Reports anorexia, Denies chills and Denies fever(s) Eyes Eyes: Reports blurry vision ENT Ears, Nose, Mouth, and Throat: Denies dizziness and Reports dysphagia *Cardiovascular Cardiovascular: Denies chest pain *Respiratory Respiratory: Denies cough *Gastrointestinal Gastrointestinal: Denies abdominal pain, Denies constipation, Reports dysphagia, Denies hematemesis and Denies hematochezia *Genitourinary Genitourinary: Denies difficulty urinating *Musculoskeletal Musculoskeletal: Reports muscle weakness *Neurologic Neurologic: Denies dizziness Meds Home Medications and Allergies Home Medications Medication Instructions Recorded Confirmed Type allopurinol 300 mg tablet 300 mg PO DAILY 08/04/23 08/05/23 History furosemide 20 mg tablet 20 mg PO DAILY 08/04/23 08/05/23 History lisinopril 20 2 tab PO DAILY 08/04/23 08/05/23 History mg-hydrochlorothiazide 12.5 mg tablet metformin 750 mg tablet,extended 750 mg PO TID 08/04/23 08/05/23 History release 24 hr pravastatin 40 mg tablet 40 mg PO HS 08/04/23 08/05/23 History spironolactone 25 mg tablet 25 mg PO DAILY 08/04/23 08/05/23 History verapamil 240 mg 24 hr 240 mg PO DAILY 08/04/23 08/05/23 History capsule,extended release New Prescriptions to Start Prescriptions: Allergies Allergy/AdvReac Type Severity Reaction Status Date / Time No Known Allergies Allergy Verified 06/13/19 20:46 Exam Data for Last 24 hours Vital signs and Labs for Last 24 Hours: Temp Pulse Resp BP Pulse Ox O2 Del Method 97.5 F L 74 18 134/74 100 Room Air 08/05/23 08:00 08/05/23 08:00 08/05/23 08:00 08/05/23 08:00 08/05/23 08:00 08/05/23 08:00 Laboratory Results - last 24 hr 08/04/23 14:48: WBC 7.2, RBC 3.50 L, Hgb 10.9 L, Hct 34.2 L, MCV 97.9 H, MCH 31.0, MCHC 31.7 L, RDW 15.0, Plt Count 154, MPV 10.0, Neut % (Auto) 81.7 H, Lymph % (Auto) 13.6, [place] % (Auto) 3.5, Eos % (Auto) 0.9, Baso % (Auto) 0.2, Neut # (Auto) 5.8, Lymph # (Auto) 1.0, [place] # (Auto) 0.3, Eos # (Auto) 0.1, Baso # (Auto) 0.0, PT 12.2, INR 1.10, APTT 26.5, Sodium 129 L, Potassium 4.1, Chloride 97 L, Carbon Dioxide 20 L, Anion Gap 16.1 H, BUN 28 H, Creatinine 1.30 H, Estimated Creat Clear 59, Estimated GFR 55 L, Est GFR ( Amer) 67, Glucose 127 H, Calcium 8.3 L, Magnesium 0.6 L, Total Bilirubin 0.7, AST 30, ALT 25, Alkaline Phosphatase 91, Total Protein 6.1 L, Albumin 3.3 L, Globulin 2.8, Albumin/Globulin Ratio 1.2, Plasma/Serum Alcohol < 10 08/04/23 17:14: Urine Color Yellow, Urine Appearance Clear, Urine pH 5.5, Ur Specific [place] 1.020, Urine Protein 1+, Urine Glucose (UA) Negative, Urine Ketones Trace, Urine Blood Negative, Urine Nitrate Negative, Urine Bilirubin 1+ A, Urine Urobilinogen 0.2, Ur Leukocyte Esterase Negative, Urine RBC None, Urine WBC None, Ur Squamous Epith Cells None, Urine Bacteria None I & O for Last 24 hours: Intake & Output 08/02/23 08/03/23 08/04/23 08/05/23 23:59 23:59 23:59 23:59 Intake Total 480 / 480 Output Total 325 / 525 600 / 600 Balance -325 / -285 -120 / -120 Weight 150 lb 1 oz 150 lb 1.063 oz Constitutional Constitutional: no acute distress Comments: parminder loss evident *Routine HEENT Exam Head: Present normocephalic Eye: Present nystagmus ENT: Present mucous membranes moist *Routine Neck Exam Neck: Present supple; Absent lymphadenopathy *Routine Respiratory Exam Respiratory: Present CTA bilaterally *Routine Cardiovascular Exam Cardiovascular: Present RRR *Routine Abdominal Exam Abdominal: Present soft and normoactive bowel sounds; Absent tenderness *Routine Rectal Exam Rectal:: deferred *Routine Genitalia Exam Genitalia:: deferred *Routine Extremities Exam Extremities: Absent cyanosis, clubbing or edema *Routine Skin Exam Skin: Present warm and ecchymosis (fairly extensive, worse on extremities); Absent rash *Routine Neurological Exam Neurological: Present alert and oriented X3 Assessment and Plan *Assessment and plan (1) Falls: Status: Acute Category: Medical Code(s): R29.6 - Repeated falls (2) Muscle weakness: Status: Acute Category: Medical Code(s): M62.81 - Muscle weakness (generalized) (3) Adult failure to thrive: Status: Acute Category: Medical Code(s): R62.7 - Adult failure to thrive (4) Hypomagnesemia: Status: Acute Category: Medical Code(s): E83.42 - Hypomagnesemia (5) Acute hyponatremia: Status: Acute Category: Medical Code(s): E87.1 - Hypo-osmolality and hyponatremia (6) EWA (acute kidney injury): Status: Acute Category: Medical Code(s): N17.9 - Acute kidney failure, unspecified (7) Physical deconditioning: Status: Acute Category: Medical Code(s): R53.81 - Other malaise (8) Dyspnea on exertion: Status: Acute Category: Medical Code(s): R06.09 - Other forms of dyspnea (9) Nystagmus: Status: Acute Category: Medical Code(s): H55.00 - Unspecified nystagmus (10) Anorexia: Status: Acute Category: Medical Code(s): R63.0 - Anorexia (11) Weight loss, unintentional: Status: Acute Category: Medical Code(s): R63.4 - Abnormal weight loss (12) DM type 2 (diabetes mellitus, type 2): Status: Acute Category: Medical Code(s): E11.9 - Type 2 diabetes mellitus without complications (13) Alcoholism: Status: Acute Category: Medical Code(s): F10.20 - Alcohol dependence, uncomplicated (14) Closed T12 spinal fracture: Status: Acute Category: Medical Code(s): S22.089A - Unspecified fracture of T11-T12 vertebra, initial encounter for closed fracture Plan Patient admitted for further evaluation and management. Plan for further testing and treatment of his symptoms. He seems to be having effects of chronic alcoholism. Nystagmus and anorexia are new problems. He may need placement due to mobility issues an inability to care for himself. Will ask PT and OT to see patient. Alcohol withdrawal protocol, daily rally pack, check vitamin levels. Symptomatic treatment of back pain, nicotine patch daily.
[2023-08-05] MEDS: MVI, ADULT NO.1 WITH VIT K 10 ML, THIAMINE HCL 100 MG, MAGNESIUM SULFATE 2 GM in LACTAT... 125 ML IV (10:27)
[2023-08-05] MEDS: FAMOTIDINE 20MG/2ML VIAL 20 MG IV ×2 (10:27→21:28)
[2023-08-05] MEDS: MAGNESIUM OXIDE 400MG TABLET 800 MG PO (10:27)
[2023-08-05] MEDS: FOLIC ACID 1MG TABLET 1 MG PO (10:27)
[2023-08-05] MEDS: THIAMINE 100MG TABLET 100 MG PO (10:27)
[2023-08-05 11:08] LABS: 25-OH Vitamin D, Total 52.3 ng/mL (30-100)
--- NOTE | 2023-08-05 11:36 | HMH.PTEV ---
Physical Therapy Evaluation Rehab PT IP Evaluation Start: 08/05/23 09:53 Freq: ONCE Status: Active Protocol: Document 08/05/23 11:27 PHOEL (Rec: 08/05/23 11:36 PHORNE [id number]) Subjective/History History History 68 yowm adm to [facility] after ground level fall at home and generalized weakness. He has poss nondisplaced T12 vert body fx also. He reports he lives with his , no steps to enter the home, and he is generally independent with all mobility using a RW. He has PMH of: Nicotine dependence, unspecified, uncomplicated Colon polyps DM type 2 (diabetes mellitus, type 2) Hyperlipidemia Alcoholism Cirrhosis Hypertension Diabetes mellitus Gout Subjective Subjective Currently pt reports mild pain in the back and severe general sense of weakness, I can't move at all, I just feel too bad. He does agree to assessment of mobility with encouragement. New diagnosis of cancer in past 12 No months? Rehab PT IP Eval Objective Appearance Patient Behavior Appropriate Patient Orientation Person,Place,Time Difficulty following instructions none Speech Pattern Clear Ambulation Patient Able to Ambulate No Balance Ability to Arise Able, uses arms to help Sitting Balance Leans or slides in chair Dynamic Sitting Balance Ability Fair Transfers Bed Transfer Ability Moderate x 1 (50% assist) ROM All Extremities PT ROM Status WFL MMT All Extremities PT MMT WFL Rehab PT IP prob,goals,plan Problems Date of Evaluation: 08/05/23 PT IP Problems Bed Mobility,Transfers,Gait Rehab Potential Rehab Potential Good Plan PT Intervention Plan Bed Mobility,Transfers,Gait, Self care,Safety,Therapeutic Exercise PT Plan Frequency Daily Duration LOS Discharge Goals Bed Transfer Ability Minimal x 2 (25% assist) Sit to Stand Chair Transfer Ability Moderate x 2 (50% assist) Ambulation Assistive Device Rolling Walker Ambulation Distance (feet) 10 Discharge Plan PT Discharge Plan Pt is currently most appropriate for rehab placement once medically stable for d/c. He may improve his mobility as his general weakness improves, but currently he is severely limited vs his baseline. Skilled therapy is indicated to prevent further debility, falls, injury, or pt return to prior level of function. Eval Complexity Eval Charge Codes 74254 - High Complexity PHYSICIAN CERTIFICATION: I certify the specified therapy services for Reynaldo Simons are required, authorized, and reviewed every 30 days.
[2023-08-05 12:00] VITALS: PULSE 71
[2023-08-05 12:07] LABS: Vitamin B12 473 pg/mL (239-931)
[2023-08-05 12:10] LABS: Folate 7.55 ng/mL
[2023-08-05 12:30] LABS: Thyroid Stimulating Hormone 5.09 uIU/mL (0.465-4.68)
[2023-08-05 16:00] VITALS: BP 121/81; PULSE 70; PULSE 79; RESP 20; TEMP 36.3; O2SAT 97
[2023-08-05] MEDS: MULTIVITAMIN TABLET 1 EACH PO (16:26)
[2023-08-05 20:00] VITALS: BP 124/78; PULSE 80; PULSE 82; RESP 18; TEMP 36.5; O2SAT 97
[2023-08-05] MEDS: TRAMADOL 50MG TABLET 50 MG PO (21:28)
[2023-08-06] VITALS (10 sets, daily range): BP systolic 111–128; BP diastolic 72–78; PULSE 70–97; RESP 16–20; TEMP 36.4–36.7; O2SAT 94–96; BMI 27.0
--- NOTE | 2023-08-06 04:59 | PC.NURSE ---
Pt is alert and oriented x4. Pt has c/o pain once this shift and rated pain 7/10. contacted Dr. Singleton @2019 for other options for pain as pt admitted tylenol wasn't helping with his pain. Order for tramadol 50 mg obtained and given. Pt refuses to turn and have a bath due to worsening pain as he moves, despite multiple attempts from staff to reposition and bathe. Pt continues to deny symptoms and remains a 0 on CIWA.
[2023-08-06 07:03] LABS: Basophils % 0.1 % (0.1-2.0); Eosinophils # 0.1 K/mm3 (0.0-0.4); Eosinophils % 0.7 % (0.1-12.0); Hematocrit 29.9 % (42.0-52.0); Hemoglobin 9.6 g/dL (14.1-18.0); Lymphocytes # 1.9 K/mm3 (0.7-4.5); Lymphocytes % 21.9 % (10-50); Mean Corpuscular HGB Conc 32.1 g/dL (31.8-35.4); Mean Corpuscular Hemoglobin 31.8 pg (27.0-31.2); Mean Corpuscular Volume 98.9 fl (80-94); Mean Platelet Volume 10.4 fl (7.4-10.4); Monocytes # 0.4 K/mm3 (0.1-1.0); Monocytes % 4.8 % (1.7-9.3); Neutrophils # 6.2 K/mm3 (1.8-7.8); Neutrophils % 72.5 % (37.0-80.0); Platelet Count 108 K/mm3 (142-424); Red Blood Count 3.02 M/mm3 (4.60-6.20); Red Cell Distribution Width 15.2 % (11.5-17.5); White Blood Count 8.6 K/mm3 (4.8-10.8)
[2023-08-06 07:06] LABS: Alanine Aminotransferase 13 U/L (12-78); Albumin Level 2.5 g/dl (3.5-5.0); Alkaline Phosphatase 77 U/L (38-126); Anion Gap 9.3 mEq/L (5-15); Aspartate Amino Transferase 20 U/L (17-59); Bilirubin,Total 0.4 mg/dl (0.2-1.3); Blood Urea Nitrogen 21 mg/dl (9-20); Calcium 8.2 mg/dl (8.4-10.2); Carbon Dioxide 23 mmol/L (22.0-30.0); Chloride 98 mmol/L (98-107); Creatinine Clearance Estimated 67 mL/min (50-200); Estimated Glomerular Filt Rate 67 ml/min (>60); GFR (African American) 81 ML/MIN (>60); Globulin 2.4 g/dL (1.3-3.2); Glucose 67 mg/dl (74-100); Magnesium 1.8 mg/dl (1.6-2.3); Potassium 3.3 mmoL/L (3.5-5.1); Sodium 127 mmol/L (136-145); Total Protein,Serum 4.9 g/dl (6.3-8.2)
--- NOTE | 2023-08-06 07:44 | P.PN_ITS ---
Subjective *Date: 08/06/23 *Time: 08:55 Interval history: Patient states he slept a little. He is not eating much. He is thirsty this morning and would like to drink some water. He is n.p.o. for an upper GI. He denies nausea and has not vomited since last week. He states his bowels have not moved in several days. He had some abdominal pain last night which resolved after passing gas. He is voiding QS. He denies chest pain and shortness of breath. He does have some back pain from the fracture. Movement of his eyes really make him dizzy.. He worked a little with physical therapy by sitting on the bedside. He has not walked or been out of bed. Labs this morning reveal hemoglobin of 9.6 and hematocrit of 29.9. White blood cell count is 8600. Blood chemistries show sodium of 127 potassium of 3.3. Medical Exam Vital signs and Labs for Last 24 Hours: Vital Signs Temp Pulse Pulse Resp BP Pulse Ox O2 Del Method 08/06/23 06:55 Room Air 08/06/23 05:00 Room Air 08/06/23 04:00 97.5 F L 85 16 117/78 96 Room Air 08/06/23 04:00 80 08/06/23 03:00 Room Air 08/06/23 01:00 Room Air 08/06/23 00:00 70 08/05/23 23:00 Room Air 08/05/23 21:00 Room Air 08/05/23 20:00 80 08/05/23 20:00 Room Air 08/05/23 20:00 97.7 F 82 18 124/78 97 Room Air 08/05/23 18:16 Room Air 08/05/23 17:00 Room Air 08/05/23 16:00 70 08/05/23 16:00 97.4 F L 79 20 121/81 97 Room Air 08/05/23 15:00 Room Air 08/05/23 12:20 Room Air 08/05/23 12:00 71 08/05/23 11:00 Room Air 08/05/23 09:00 Room Air 08/05/23 08:00 82 08/05/23 08:00 Room Air 08/05/23 08:00 97.5 F L 74 18 134/74 100 Room Air Intake and Output 08/05/23 08/06/23 08/06/23 19:59 03:59 11:59 Intake Total 1033 / 1033 240 / 1273 Output Total 300 / 300 525 / 825 Balance 733 / 733 -285 / 448 Intake: Intake, Oral Amount 300 / 300 240 / 540 Infusion Intake 733 / 733 Mvi, Adult No.1 with Vit K 10 733 / 733 ml Thiamine HCl 100 mg Magnesium Sulfate 2 gm In Lactated Ringers 1000ML 1,000 ml @ 125 mls/hr IV DAILY [facility] Rx #:[id number] Output: Output, Urine Amount 300 / 300 525 / 825 Other: Weight 158 lb 3 oz Patient Weight 08/06/23 11:59 Weight 158 lb 3 oz Laboratory Results - last 24 hr 08/05/23 10:30: Vitamin B12 473, 25-OH Vitamin D Total 52.3, Folate 7.55, TSH 5.09 H 08/06/23 06:26: WBC 8.6, RBC 3.02 L, Hgb 9.6 L, Hct 29.9 L, MCV 98.9 H, MCH 31.8 H, MCHC 32.1, RDW 15.2, Plt Count 108 L D, MPV 10.4, Neut % (Auto) 72.5, Lymph % (Auto) 21.9, [place] % (Auto) 4.8, Eos % (Auto) 0.7, Baso % (Auto) 0.1, Neut # (Auto) 6.2, Lymph # (Auto) 1.9, [place] # (Auto) 0.4, Eos # (Auto) 0.1, Baso # (Auto) 0.0, Sodium 127 L, Potassium 3.3 L, Chloride 98, Carbon Dioxide 23, Anion Gap 9.3, BUN 21 H, Creatinine 1.10, Estimated Creat Clear 67, Estimated GFR 67, Est GFR ( Amer) 81 D, Glucose 67 L, Calcium 8.2 L, Magnesium 1.8 D, Total Bilirubin 0.4, AST 20 D, ALT 13 D, Alkaline Phosphatase 77, Total Protein 4.9 L, Albumin 2.5 L, Globulin 2.4, Albumin/Globulin Ratio 1.0 L I & O for Labs for Last 24 Hours: Intake & Output 08/03/23 08/04/23 08/05/23 08/06/23 11:59 11:59 11:59 11:59 Intake Total 480 / 480 1273 / 1273 Output Total 925 / 925 825 / 825 Balance -445 / -445 448 / 448 Weight 150 lb 1.063 oz 158 lb 3 oz Constitutional: Present no acute distress Comment:: Initially lying in bed and appears comfortable Respiratory: Present rhonchi (Scattered posteriorly) and wheezes (Scattered posteriorly) Cardiac: Present Regular Rhythm GI: Present soft, distention and normal bowel sounds (Tympanic); Absent tenderness Extremities: Present full ROM; Absent tenderness, edema or calf tenderness Neuro: Present alert, awake and oriented x 3 Assessment and Plan *Assessment and plan (1) Falls: Status: Acute Category: Medical Code(s): R29.6 - Repeated falls (2) Muscle weakness: Status: Acute Category: Medical Code(s): M62.81 - Muscle weakness (generalized) (3) Adult failure to thrive: Status: Acute Category: Medical Code(s): R62.7 - Adult failure to thrive (4) Hypomagnesemia: Status: Acute Category: Medical Code(s): E83.42 - Hypomagnesemia (5) Acute hyponatremia: Status: Acute Category: Medical Code(s): E87.1 - Hypo-osmolality and hyponatremia (6) EWA (acute kidney injury): Status: Acute Category: Medical Code(s): N17.9 - Acute kidney failure, unspecified (7) Physical deconditioning: Status: Acute Category: Medical Code(s): R53.81 - Other malaise (8) Dyspnea on exertion: Status: Acute Category: Medical Code(s): R06.09 - Other forms of dyspnea (9) Nystagmus: Status: Acute Category: Medical Code(s): H55.00 - Unspecified nystagmus (10) Anorexia: Status: Acute Category: Medical Code(s): R63.0 - Anorexia (11) Weight loss, unintentional: Status: Acute Category: Medical Code(s): R63.4 - Abnormal weight loss (12) DM type 2 (diabetes mellitus, type 2): Status: Acute Category: Medical Code(s): E11.9 - Type 2 diabetes mellitus without complications (13) Alcoholism: Status: Acute Category: Medical Code(s): F10.20 - Alcohol dependence, uncomplicated (14) Closed T12 spinal fracture: Status: Acute Category: Medical Code(s): S22.089A - Unspecified fracture of T11-T12 vertebra, initial encounter for closed fracture (15) Hypokalemia: Status: Acute Category: Medical Code(s): E87.6 - Hypokalemia Plan Will add p.o. potassium. Also will add albuterol inhaler to use 4 times daily. Continue with PT OT. Personnel not available for upper GI today. This will need to be done tomorrow. Dr. Singleton entry - Saw patient, agree with above note.
[2023-08-06] MEDS: FOLIC ACID 1MG TABLET 1 MG PO (09:33)
[2023-08-06] MEDS: NICOTINE 21MG/24HR PATCH 21 MG TD (09:33)
[2023-08-06] MEDS: THIAMINE 100MG TABLET 100 MG PO (09:34)
[2023-08-06] MEDS: FAMOTIDINE 20MG/2ML VIAL 20 MG IV ×2 (09:34→20:19)
[2023-08-06] MEDS: POTASSIUM CHLORIDE 20MEQ TAB 20 MEQ PO ×2 (09:34→20:19)
[2023-08-06] MEDS: ACETAMINOPHEN 325MG TAB 650 MG PO (09:34)
[2023-08-06] MEDS: MAGNESIUM OXIDE 400MG TABLET 800 MG PO (09:34)
--- NOTE | 2023-08-06 09:46 | SW/DCPLANNER ---
Addendum entered by [facility] 08/13/23 15:46: Per Oralia patient does not have a cut off time for admission at [facility] and auth will today. I have updated nursing staff and Dr Barrera. Addendum entered by [facility] 08/13/23 09:42: I have updated Oralia stewart/ [facility] that the plan for this patient is to discharge SNF level of care today. Addendum entered by [facility] 08/13/23 08:33: Per Oralia stewart/ [facility] auth for SNF level of care is good through today. Addendum entered by [facility] 08/10/23 11:31: Per Oralia auth is good till 08/13/23. Addendum entered by [facility] 08/10/23 09:01: I have updated Oralia stewart/ [facility] that patient is not ready for discharge today. Addendum entered by [facility] 08/09/23 10:13: Per patient is not ready for discharge today but could be tomorrow. I have updated Oralia stewart/ [facility]. Addendum entered by [facility] 08/09/23 08:44: Per Oralia stewart/ [employer] [facility] this patient has been approved SNF level of care once medically stable for discharge. I will update MD regarding situation. Addendum entered by [facility] 08/08/23 07:39: Updated patient information faxed to Oralia stewart/ [facility]. Addendum entered by [facility] 08/07/23 15:07: Oralia stewart/ [facility] will start a precert today for SNF level of care. Addendum entered by [facility] 08/07/23 11:59: [facility]. Addendum entered by [facility] 08/07/23 11:30: I spoke w/ patient regarding other facilities for SNF level of care. Patient is agreeable for information to be faxed to [facility] and [facility] at this time. Addendum entered by [facility] 08/07/23 09:16: Kamilah w/ [facility] is still reviewing patient information at this time. Addendum entered by [facility] 08/06/23 14:07: Nicole w/ [facility] is unable to accept this patient. Patient information has been faxed to Kamilah stewart/ [facility]. Original Note: I spoke w/ patient this AM regarding plans once medically stable for discharge. PT/OT evaluated patient and recommended SNF level of care. Patient is agreeable to placement at this time and prefers [facility]. Patient stated that if [facility] could not accept he would be agreeable to [facility]. I will fax patient information this AM. Per MD patient is not ready for discharge at this time.
--- NOTE | 2023-08-06 09:51 | HMH.OTEV ---
OT Inpatient Evaluation Rehab OT IP Evaluation Start: 08/05/23 09:53 Freq: ONCE Status: Active Protocol: [facility]23 09[facility] (Rec: 08/06/23 09:51 [facility] [id number]) Rehab OT IP Assessment Subjective History Pt oriented x 3 on arrival. Pt agreeable to engage in therapy evaluation. Pt was admitted on 08/04/23 due to weakness and failure to thrive . History and physical report: Mr. Simons is a 68 year old patient of [facility]. He presented to the ER at [facility] yesterday due to progressive weakness and falls. 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 He did have an ER visit last week for similar issues. He was transferred to [facility] for further evaluation. From the records available to me to review today, he was kept there about a day and a half and was given IV fluids and discharged without having an evaluation of his mobility or seeing a GI doctor. He has a long history of alcoholism and has had failing healthy over the past few months. He states he last drank alcohol about 1 month ago. He was diagnosed with ascities and liver cirrhosis and has an initial visit with GI scheduled for next month. He has had a 30 lbs weight loss over the past 2 months. Subjective My back is hurting bad. Pt reports prior to being in the hospital, pt lived at home with his . Pt claims normally he is independent with most ADLs such as dressing, sponge baths, and feeding. Pt is also normally able to transfer himself with rolling walker. Pt is dependent upon for completion of all IADLs. Objective Patient Orientation Person,Place,Birthday Right Upper Extremity Gross ROM Min Limitation <25% Left Upper Extremity Gross ROM Min Limitation <25% Shoulder ROM Limitations Muscle Weakness Elbow ROM Limitations Muscle Weakness Wrist Limitations of Range of Motion Muscle Weakness Bed Mobility bed mobility-scooting,bed mobility - supine/sit Assist Level Minimal x 2 (25% assist) Transfer Training Sit/Stand Transfer Assist Level Minimal x 1 (25% assist) Rehab OT IP prob,goals,plan Problems Date of Evaluation: 08/06/23 OT IP Problems Bed Mobility,Transfers,Balance ,Self care,Safety Rehab Potential Rehab Potential Good Equipment Needs Assistive Devices Rolling / Wheeled Walker Plan OT intervention Plan Bed Mobility,Transfers,Balance ,Self care,Safety,Therapeutic Exercise OT Plan Frequency Daily Duration LOS Discharge Goals Bed Mobility Ability Assistance x1 Sit to Stand Chair Transfer Ability Contact Guard/Hand Hold Chair Transfer Ability Contact Guard/Hand Hold Chair Transfer Technique Sit to/from Ambulatory Chair Transfer Assistive Devices Rolling Walker Feeding Ability Assist with Tray Set Up Lower Body Dressing Ability Moderate Assistance Upper Body Dressing Ability Contact Guard Bathing Ability Moderate Assistance Performing Toilet Hygiene Ability Moderate Assistance Overall Commode/Toilet Transfer Ability Contact Guard,Minimal Assistance Commode/Toilet Transfer Technique Sit to/from Ambulatory Commode/Toilet Transfer Assistive Grab Bars Devices Oral Care Assist Standby Assistance Decrease in Endurance Yes Discharge Plan OT Discharge Plan Pt will continue to be seen for OT services while at [facility]. Pt would benefit most from short term rehab at [facility] following hospital stay. Continued skilled therapy is important in order for patient to improve strength, safety, endurance, ADL independence, and functional transfers to reach PLOF. Eval Complexity Eval Charge Codes 04982 - Moderate Complexity PHYSICIAN CERTIFICATION: I certify the specified therapy services for Reynaldo Simons are required, authorized, and reviewed every 30 days.
[2023-08-06] MEDS: MVI, ADULT NO.1 WITH VIT K 10 ML, THIAMINE HCL 100 MG, MAGNESIUM SULFATE 2 GM in LACTAT... 125 ML IV (10:08)
[2023-08-06] MEDS: ALBUTEROL SULFATE 1.25 MG/3 ML VIAL.NEB IH ×3 (10:41→19:44)
[2023-08-06 15:11] LABS: Transferrin 158 mg/dL (177-329)
[2023-08-06] MEDS: MULTIVITAMIN TABLET 1 EACH PO (17:06)
[2023-08-07] VITALS (9 sets, daily range): BP systolic 95–122; BP diastolic 55–84; PULSE 87–118; RESP 16–20; TEMP 36.5–36.9; O2SAT 93–99; BMI 26.9
--- NOTE | 2023-08-07 04:56 | PC.NURSE ---
no events through the shift, vss, pt cont to refuse to be turned.
[2023-08-07] MEDS: ALBUTEROL SULFATE 1.25 MG/3 ML VIAL.NEB IH ×4 (06:14→20:00)
[2023-08-07 06:42] LABS: Basophils % 0.2 % (0.1-2.0); Eosinophils # 0.1 K/mm3 (0.0-0.4); Eosinophils % 0.5 % (0.1-12.0); Hematocrit 32.8 % (42.0-52.0); Hemoglobin 10.4 g/dL (14.1-18.0); Lymphocytes # 1.6 K/mm3 (0.7-4.5); Lymphocytes % 10.6 % (10-50); Mean Corpuscular HGB Conc 31.6 g/dL (31.8-35.4); Mean Corpuscular Hemoglobin 31.4 pg (27.0-31.2); Mean Corpuscular Volume 99.4 fl (80-94); Mean Platelet Volume 10.5 fl (7.4-10.4); Monocytes # 0.5 K/mm3 (0.1-1.0); Monocytes % 3.4 % (1.7-9.3); Neutrophils # 12.9 K/mm3 (1.8-7.8); Neutrophils % 85.2 % (37.0-80.0); Platelet Count 122 K/mm3 (142-424); White Blood Count 15.1 K/mm3 (4.8-10.8)
[2023-08-07 06:47] LABS: Chloride 104 mmol/L (98-107); Sodium 128 mmol/L (136-145)
[2023-08-07 06:48] LABS: Potassium 4.4 mmoL/L (3.5-5.1)
[2023-08-07 06:51] LABS: Anion Gap 7.4 mEq/L (5-15); Blood Urea Nitrogen 17 mg/dl (9-20); Calcium 8.4 mg/dl (8.4-10.2); Carbon Dioxide 21 mmol/L (22.0-30.0); Creatinine Clearance Estimated 67 mL/min (50-200); Estimated Glomerular Filt Rate 67 ml/min (>60); GFR (African American) 81 ML/MIN (>60); Glucose 85 mg/dl (74-100); MANUAL DIFFERENTIAL MANUAL DIFFERENTIAL (MANUAL DIFF)
--- NOTE | 2023-08-07 07:41 | P.PN_ITS ---
Subjective *Date: 08/07/23 *Time: 12:22 Interval history: Patient states he wants to sleep all of the time. He cannot stand to have his eyes open due to the nystagmus. It makes him nauseated. He was able to eat a little bit better yesterday although not very much. He denies any vomiting. Bowels have not moved and no further flatus. He worked with physical therapy and was able to stand at the bedside. He states he did not walk. He is voiding QS. He denies chest pain and shortness of breath and minimal cough. He is n.p.o. for an upper GI today. White count is elevated today at 15,000. Potassium is normal. Sodium remains low at 128. Renal function is normal. Medical Exam Vital signs and Labs for Last 24 Hours: Vital Signs Temp Pulse Pulse Resp BP Pulse Ox O2 Del Method 08/07/23 07:28 97.8 F 104 H 20 122/76 95 Room Air 08/07/23 06:57 Room Air 08/07/23 06:15 100 H 08/07/23 06:15 103 H 08/07/23 06:15 93 L Room Air 08/07/23 05:00 Room Air 08/07/23 04:00 95 H 08/07/23 04:00 98.0 F 93 H 16 119/84 94 L Room Air 08/07/23 03:00 Room Air 08/07/23 01:00 Room Air 08/07/23 00:00 93 H 08/06/23 23:00 Room Air 08/06/23 21:00 Room Air 08/06/23 20:00 97 H 08/06/23 20:00 Room Air 08/06/23 19:44 82 08/06/23 19:44 84 08/06/23 19:40 97.9 F 92 H 18 128/77 96 Room Air 08/06/23 18:25 Room Air 08/06/23 16:42 Room Air 08/06/23 16:00 90 08/06/23 16:00 98.1 F 92 H 18 126/74 94 L Room Air 08/06/23 14:38 Room Air 08/06/23 13:31 85 08/06/23 13:31 87 08/06/23 13:00 Room Air 08/06/23 13:00 Room Air 08/06/23 12:00 80 08/06/23 11:00 Room Air 08/06/23 10:42 85 08/06/23 10:42 83 08/06/23 09:00 Room Air 08/06/23 08:00 Room Air 08/06/23 08:00 80 08/06/23 08:00 98.1 F 87 20 111/72 95 Room Air Intake and Output 08/06/23 08/07/23 08/07/23 19:59 03:59 11:59 Intake Total 455 / 455 Output Total 200 / 200 150 / 350 100 / 450 Balance 255 / 255 -150 / 105 -100 / 5 Intake: Intake, Oral Amount 455 / 455 Output: Output, Urine Amount 200 / 200 150 / 350 100 / 450 Other: Number of Unmeasured Voids 0 Weight 158 lb 2.907 oz 157 lb 14.4 oz Patient Weight 08/07/23 11:59 Weight 157 lb 14.4 oz Laboratory Results - last 24 hr 08/05/23 10:40: Transferrin 158 L 08/07/23 06:24: WBC 15.1 H D, RBC 3.30 L, Hgb 10.4 L, Hct 32.8 L, MCV 99.4 H, MCH 31.4 H, MCHC 31.6 L, RDW 15.0, Plt Count 122 L, MPV 10.5 H, Neut % (Auto) 85.2 H, Lymph % (Auto) 10.6, [place] % (Auto) 3.4, Eos % (Auto) 0.5, Baso % (Auto) 0.2, Neut # (Auto) 12.9 H, Lymph # (Auto) 1.6, [place] # (Auto) 0.5, Eos # (Auto) 0.1, Baso # (Auto) 0.0, Sodium 128 L, Potassium 4.4 D, Chloride 104, Carbon Dioxide 21 L, Anion Gap 7.4, BUN 17, Creatinine 1.10, Estimated Creat Clear 67, Estimated GFR 67, Est GFR ( Amer) 81, Glucose 85 D, Calcium 8.4 I & O for Labs for Last 24 Hours: Intake & Output 08/04/23 08/05/23 08/06/23 08/07/23 11:59 11:59 11:59 11:59 Intake Total 480 / 480 1273 / 1273 455 / 455 Output Total 925 / 925 925 / 925 450 / 450 Balance -445 / -445 348 / 348 5 / 5 Weight 150 lb 1.063 oz 158 lb 3 oz 157 lb 14.4 oz Constitutional: Present no acute distress Comment:: Appears more alert this morning. Respiratory: Present rhonchi (Coarse rhonchi bilaterally anteriorly and posteriorly her not relieved with cough) Cardiac: Present Regular Rhythm GI: Present soft, distention and hypoactive bowel sounds; Absent tenderness or guarding Extremities: Absent tenderness or edema Neuro: Present alert, awake and oriented x 3 Assessment and Plan *Assessment and plan (1) Falls: Status: Acute Category: Medical Code(s): R29.6 - Repeated falls (2) Muscle weakness: Status: Acute Category: Medical Code(s): M62.81 - Muscle weakness (generalized) (3) Adult failure to thrive: Status: Acute Category: Medical Code(s): R62.7 - Adult failure to thrive (4) Hypomagnesemia: Status: Acute Category: Medical Code(s): E83.42 - Hypomagnesemia (5) Acute hyponatremia: Status: Acute Category: Medical Code(s): E87.1 - Hypo-osmolality and hyponatremia (6) EWA (acute kidney injury): Status: Acute Category: Medical Code(s): N17.9 - Acute kidney failure, unspecified (7) Physical deconditioning: Status: Acute Category: Medical Code(s): R53.81 - Other malaise (8) Dyspnea on exertion: Status: Acute Category: Medical Code(s): R06.09 - Other forms of dyspnea (9) Nystagmus: Status: Acute Category: Medical Code(s): H55.00 - Unspecified nystagmus (10) Anorexia: Status: Acute Category: Medical Code(s): R63.0 - Anorexia (11) Weight loss, unintentional: Status: Acute Category: Medical Code(s): R63.4 - Abnormal weight loss (12) DM type 2 (diabetes mellitus, type 2): Status: Acute Category: Medical Code(s): E11.9 - Type 2 diabetes mellitus without complications (13) Alcoholism: Status: Acute Category: Medical Code(s): F10.20 - Alcohol dependence, uncomplicated (14) Closed T12 spinal fracture: Status: Acute Category: Medical Code(s): S22.089A - Unspecified fracture of T11-T12 vertebra, initial encounter for closed fracture (15) Hypokalemia: Status: Acute Category: Medical Code(s): E87.6 - Hypokalemia (16) Leukocytosis: Status: Acute Category: Medical Code(s): D72.829 - Elevated white blood cell count, unspecified Plan Will get a chest x-ray while patient down for upper GI this a.m. Patient has improved. He continues to receive rally pack daily. Continue to work with PT. Care management for disposition. After evaluation with upper GI will most likely need something for constipation. Dr. Singleton entry - Saw patient, agree with above note.
--- NOTE | 2023-08-07 07:46 | XR_ITS ---
FINAL REPORT CLINICAL HISTORY: Bilateral coarse rhonchi COMPARISON: 08/04/2023 FINDINGS: Two views of the chest were obtained. The heart size and pulmonary vascularity are within normal limits. The mediastinum is normal. Worsening bibasilar opacities are favored to represent atelectasis over pneumonia. There are small pleural effusions. There is no pneumothorax. Degenerative changes are noted throughout the thoracic spine. IMPRESSION: Worsening bibasilar opacities and small pleural effusions. Reviewed, Interpreted and Dictated by Sav Barnard III, MD Transcribed by Pari Sanchez Authenticated and [facility]
[2023-08-07 08:09] LABS: Lymphocytes % 14 % (10-50); Monocytes % 3 % (2-9); Neutrophils % 82 % (42-76); Platelet Estimate Slight Decrease; RBC Morphology Normal; Total Cells Counted 100
--- NOTE | 2023-08-07 09:00 | FL_ITS ---
FINAL REPORT CLINICAL HISTORY: weight loss FT 1:27 103.86 mgy Reviewed, Interpreted and Dictated by Sav Barnard III, MD Transcribed by ORLANDO Cruz Authenticated and [facility]
[2023-08-07] MEDS: BARIUM SULFATE(LIQUID E-Z-PAQUE);355ML BOTTLE 355 ML PO (09:13)
[2023-08-07] MEDS: MVI, ADULT NO.1 WITH VIT K 10 ML, THIAMINE HCL 100 MG, MAGNESIUM SULFATE 2 GM in LACTAT... 125 ML IV (10:39)
[2023-08-07] MEDS: FAMOTIDINE 20MG/2ML VIAL 20 MG IV ×2 (10:40→20:22)
[2023-08-07] MEDS: FOLIC ACID 1MG TABLET 1 MG PO (10:40)
[2023-08-07] MEDS: THIAMINE 100MG TABLET 100 MG PO (10:40)
[2023-08-07] MEDS: POTASSIUM CHLORIDE 20MEQ TAB 20 MEQ PO ×2 (10:40→20:22)
[2023-08-07] MEDS: MAGNESIUM OXIDE 400MG TABLET 800 MG PO (10:40)
[2023-08-07] MEDS: AZITHROMYCIN 500 MG in 0.9 % SODIUM CHLORIDE 250 ML 250 MG IV (13:57)
[2023-08-07] MEDS: CEFTRIAXONE 1 GM 1 GM in 0.9 % SODIUM CHLORIDE 50 ML IV (13:57)
[2023-08-07] MEDS: NICOTINE 21MG/24HR PATCH 21 MG TD (14:00)
[2023-08-07] MEDS: TRAMADOL 50MG TABLET 50 MG PO (14:01)
--- NOTE | 2023-08-07 15:37 | PC.NURSE ---
pt c/o pain to the coccyx. assessment by myself and Asia revealed no open area. area was slightly red. pt educated on turning, however pt refused.
[2023-08-07] MEDS: MULTIVITAMIN TABLET 1 EACH PO (17:06)
[2023-08-07] MEDS: OXAZEPAM 15 MG CAPSULE PO (17:24)
[2023-08-07 22:54] LABS: Vitamin B1 143.2 nmol/L (66.5-200.0)
[2023-08-08] VITALS (10 sets, daily range): BP systolic 112–123; BP diastolic 68–85; PULSE 70–122; RESP 16–22; TEMP 36.4–37.3; O2SAT 91–98; BMI 27.4
--- NOTE | 2023-08-08 04:43 | PC.NURSE ---
Pt has rested well through the night and has actually gotten up this morning stating I feel so much better today and I slept so good . However when VS were checked, pt noted with HR of 120-130 and irregular . Pt is asymptomatic and denies chest pain, SOA, palpitations. Pt was placed on telemetry, Dr Saul was notified at 445 am and respiratory called for EKG
--- NOTE | 2023-08-08 04:49 | ECG_ITS ---
APPROVED REPORT Exam: Resting ECG HR:113 bpm ECG Measurements Heart Rate 113 AXES QRSd 92 QRS 32 QT 373 T 65 QTc 440 Conclusion ATRIAL FIBRILLATION WITH RAPID VENTRICULAR RESPONSE LOW QRS VOLTAGE IN PRECORDIAL LEADS [QRS DEFLECTION < 1.0 mV IN CHEST LEADS] ABNORMAL RHYTHM ECG UNCONFIRMED REPORT Electronically signed by : KUNAL MIRELES, 08/11/2023 01:21:06
[2023-08-08] MEDS: dilTIAZem 25MG/5ML VIAL 10 MG IV (05:00)
[2023-08-08] MEDS: 0.9 % SODIUM CHLORIDE 500 ML 999 ML IV (05:02)
--- NOTE | 2023-08-08 05:53 | PC.NURSE ---
Administered Diltiazem 10 mg IV and 500 ml bolus of NS, rate mostly in the 90s but remains irregular. Pt remains asymptomatic and is resting comfortably
[2023-08-08] MEDS: ALBUTEROL SULFATE 1.25 MG/3 ML VIAL.NEB IH ×4 (06:08→20:30)
[2023-08-08 06:27] LABS: Chloride 107 mmol/L (98-107); Potassium 4.3 mmoL/L (3.5-5.1); Sodium 127 mmol/L (136-145)
[2023-08-08 06:30] LABS: Blood Urea Nitrogen 17 mg/dl (9-20); Creatinine Clearance Estimated 68 mL/min (50-200); Estimated Glomerular Filt Rate 67 ml/min (>60); GFR (African American) 81 ML/MIN (>60)
[2023-08-08 06:31] LABS: Anion Gap 5.3 mEq/L (5-15); Carbon Dioxide 19 mmol/L (22.0-30.0); Glucose 88 mg/dl (74-100)
[2023-08-08 07:05] LABS: Basophils % 0.4 % (0.1-2.0); Eosinophils # 0.1 K/mm3 (0.0-0.4); Hematocrit 30.4 % (42.0-52.0); Lymphocytes # 1.3 K/mm3 (0.7-4.5); Lymphocytes % 15.2 % (10-50); Mean Corpuscular HGB Conc 30.3 g/dL (31.8-35.4); Mean Corpuscular Hemoglobin 32.1 pg (27.0-31.2); Mean Corpuscular Volume 105.7 fl (80-94); Mean Platelet Volume 10.9 fl (7.4-10.4); Monocytes # 0.4 K/mm3 (0.1-1.0); Monocytes % 4.9 % (1.7-9.3); Neutrophils # 6.8 K/mm3 (1.8-7.8); Neutrophils % 78.5 % (37.0-80.0); Platelet Count 107 K/mm3 (142-424); Red Blood Count 2.87 M/mm3 (4.60-6.20); White Blood Count 8.7 K/mm3 (4.8-10.8)
--- NOTE | 2023-08-08 08:04 | PC.NURSE ---
let nurse know about high pulse rate
[2023-08-08] MEDS: AZITHROMYCIN 500 MG in 0.9 % SODIUM CHLORIDE 250 ML 250 MG IV (08:06)
[2023-08-08] MEDS: FOLIC ACID 1MG TABLET 1 MG PO (08:08)
[2023-08-08] MEDS: FAMOTIDINE 20MG/2ML VIAL 20 MG IV ×2 (08:08→20:22)
[2023-08-08] MEDS: MAGNESIUM OXIDE 400MG TABLET 800 MG PO (08:08)
[2023-08-08] MEDS: POTASSIUM CHLORIDE 20MEQ TAB 20 MEQ PO ×2 (08:08→20:22)
--- NOTE | 2023-08-08 08:19 | EXP.ACUTE.PN ---
Subjective *Date: 08/08/23 *Time: 08:55 Interval history: Patient states he feels better today. He is still having dizziness but denies any pain. He slept well last night and was able to eat some breakfast. Medical Exam Vital signs and Labs for Last 24 Hours: Vital Signs Temp Pulse Pulse Resp BP Pulse Ox O2 Del Method 08/08/23 08:00 97.9 F 122 H 22 119/85 92 L Room Air 08/08/23 06:35 Room Air 08/08/23 06:09 77 08/08/23 06:09 80 08/08/23 05:00 Room Air 08/08/23 04:00 97.9 F 120 H 16 114/69 95 Room Air 08/08/23 02:59 Room Air 08/08/23 01:00 Room Air 08/08/23 00:00 Room Air 08/07/23 23:00 Room Air 08/07/23 21:00 Room Air 08/07/23 20:01 87 08/07/23 20:01 87 08/07/23 20:01 95 Room Air 08/07/23 20:00 95 Room Air 08/07/23 19:43 98.4 F 118 H 16 99/55 L 99 Room Air 08/07/23 17:54 Room Air 08/07/23 17:00 Room Air 08/07/23 15:46 97.7 F 98 H 20 95/63 L 95 Room Air 08/07/23 14:49 Room Air 08/07/23 13:00 Room Air 08/07/23 11:00 Room Air 08/07/23 09:00 Room Air Intake and Output 08/07/23 08/08/23 08/08/23 19:59 03:59 11:59 Intake Total 510 / 610 100 / 610 Output Total 0 / 275 25 / 275 250 / 275 Balance 510 / 335 -25 / 335 -150 / 335 Intake: Intake, Oral Amount 510 / 610 100 / 610 Output: Output, Urine Amount 0 / 275 25 / 275 250 / 275 Other: Number of Unmeasured Voids 2 1 0 Weight 160 lb 11.2 oz Patient Weight 08/08/23 11:59 Weight 160 lb 11.2 oz Laboratory Results - last 24 hr 08/05/23 13:35: Vitamin B1 143.2 08/08/23 05:47: Sodium 127 L, Potassium 4.3, Chloride 107, Carbon Dioxide 19 L, Anion Gap 5.3, BUN 17, Creatinine 1.10, Estimated Creat Clear 68, Estimated GFR 67, Est GFR ( Amer) 81, Glucose 88, Calcium 8.0 L I & O for Labs for Last 24 Hours: Intake & Output 08/05/23 08/06/23 08/07/23 08/08/23 11:59 11:59 11:59 11:59 Intake Total 480 / 480 1273 / 1273 455 / 455 610 / 610 Output Total 925 / 1025 925 / 925 450 / 450 275 / 275 Balance -445 / -545 348 / 348 5 / 5 335 / 335 Weight 150 lb 1.063 oz 158 lb 3 oz 157 lb 14.4 oz 160 lb 11.2 oz Constitutional: Present no acute distress Eyes: Present other (nystagmus present) Respiratory: Present rhonchi Cardiac: Present Reg Rate and Rhythm GI: Present soft; Absent distention or tenderness Extremities: Absent edema Skin: Present intact Neuro: Present alert, awake and oriented x 3 Assessment and Plan *Assessment and plan (1) Falls: Status: Acute Category: Medical Code(s): R29.6 - Repeated falls (2) Muscle weakness: Status: Acute Category: Medical Code(s): M62.81 - Muscle weakness (generalized) (3) Adult failure to thrive: Status: Acute Category: Medical Code(s): R62.7 - Adult failure to thrive (4) Hypomagnesemia: Status: Acute Category: Medical Code(s): E83.42 - Hypomagnesemia (5) Acute hyponatremia: Status: Acute Category: Medical Code(s): E87.1 - Hypo-osmolality and hyponatremia (6) EWA (acute kidney injury): Status: Acute Category: Medical Code(s): N17.9 - Acute kidney failure, unspecified (7) Physical deconditioning: Status: Acute Category: Medical Code(s): R53.81 - Other malaise (8) Dyspnea on exertion: Status: Acute Category: Medical Code(s): R06.09 - Other forms of dyspnea (9) Nystagmus: Status: Acute Category: Medical Code(s): H55.00 - Unspecified nystagmus (10) Anorexia: Status: Acute Category: Medical Code(s): R63.0 - Anorexia (11) Weight loss, unintentional: Status: Acute Category: Medical Code(s): R63.4 - Abnormal weight loss (12) DM type 2 (diabetes mellitus, type 2): Status: Acute Category: Medical Code(s): E11.9 - Type 2 diabetes mellitus without complications (13) Alcoholism: Status: Acute Category: Medical Code(s): F10.20 - Alcohol dependence, uncomplicated (14) Closed T12 spinal fracture: Status: Acute Category: Medical Code(s): S22.089A - Unspecified fracture of T11-T12 vertebra, initial encounter for closed fracture (15) Hypokalemia: Status: Acute Category: Medical Code(s): E87.6 - Hypokalemia (16) Leukocytosis: Status: Acute Category: Medical Code(s): D72.829 - Elevated white blood cell count, unspecified (17) Atrial fibrillation with RVR: Status: Acute Category: Medical Code(s): I48.91 - Unspecified atrial fibrillation (18) CAP (community acquired pneumonia): Status: Acute Category: Medical Code(s): J18.9 - Pneumonia, unspecified organism Plan CXR showed worsening bibasilar opacities and small pleural effusions. Awaiting upper GI results. He was started on antibiotics yesterday. Will likely need something for constipation today. He states the oxazepam did seem to help with the dizziness. Will discuss further care with Dr. Singleton. Mani Martini entry - Saw patient, agree with above note. He did better after a dose of Oxazepam yesterday. Antibiotics started for probable pneumonia. Patient did go into A. fib overnight. Will resume home dose of Verapamil today.
[2023-08-08 09:20] LABS: Hemoglobin 9.2 g/dL (14.1-18.0)
--- NOTE | 2023-08-08 09:20 | DIET.NUTRFU ---
Patient has had poor po intake since admit, some improvement today. Consumed 1/2 biscuit with gravy and some frye. Denies any N/V, no BM noted since admit on 08/03-provider aware. Patient reports some gas and feels like maybe today for BM, he is pretty regular at home. This RD spoke to him about his poor po intake, offered him supplements. He is lactose intolerant and he dislikes the boost and the ensure. Willing to try Boost breeze peach at lunch today to provide additional calories and protein. Patient just recently bought some premier protein to try, he might ask his to bring them in. Plans to discharge to facility for rehab.
--- NOTE | 2023-08-08 09:42 | ECG_ITS ---
APPROVED REPORT Exam: Resting ECG HR:109 bpm ECG Measurements Heart Rate 109 AXES AK 130 P -2 QRSd 90 QRS 73 QT 352 T 112 QTc 416 Conclusion SINUS TACHYCARDIA WITH OCCASIONAL SUPRAVENTRICULAR PREMATURE COMPLEXES LOW QRS VOLTAGE IN PRECORDIAL LEADS [QRS DEFLECTION < 1.0 mV IN CHEST LEADS] POSSIBLE RIGHT VENTRICULAR CONDUCTION DELAY [RSR (QR) IN V1/V2] POSSIBLE ANTERIOR MYOCARDIAL INFARCTION , PROBABLY OLD [30 ms Q WAVE IN V3/V4, OR R < 0.2 mV IN V4] ABNORMAL RHYTHM ECG UNCONFIRMED REPORT Electronically signed by : KUNAL MIRELES, 08/11/2023 01:20:37
[2023-08-08] MEDS: METOPROLOL TARTRATE 5MG/5ML VIAL 5 MG IV (09:54)
[2023-08-08] MEDS: OXAZEPAM 15 MG CAPSULE PO ×2 (09:57→12:59)
[2023-08-08] MEDS: MVI, ADULT NO.1 WITH VIT K 10 ML, THIAMINE HCL 100 MG, MAGNESIUM SULFATE 2 GM in LACTAT... 125 ML IV (09:57)
[2023-08-08] MEDS: METOPROLOL SUCCINATE XL 25MG TABLET 25 MG PO (09:58)
--- NOTE | 2023-08-08 10:07 | EXP.CARD.CON ---
History of Present Illness History of Present Illness Consult date: 08/08/23 Requesting physician: Jairo Singleton Consult reason: atrial fibrillation Chief complaint: failure to thrive, fall, vision changes, EWA History of present illness: This is a 68-year-old white male with past medical history alcoholic cirrhosis, alcohol abuse- reports last drink was 1 month ago who presented to emergency department on 08/03 for fall, generalized weakness and vision changes. Patient was admitted for failure to thrive, EWA and an acute T12 fracture. Of note patient was transferred from this facility on 07/[address] [facility] for decompensated cirrhosis and an EWA. Cardiology was asked to consult for new onset paroxysmal atrial fibrillation noted last night. Patient denies chest pain, shortness of breath or palpitations. Morning labs as follow: WBC 8.7, hemoglobin 9.2, platelet count 107, sodium 127, potassium 4.3, BUN 17 and creatinine 1.1. Chest x-ray from 08/06 shows worsening bibasilar opacities and small pleural effusions. Patient underwent an echocardiogram March 2023 which showed normal biventricular function and no significant valvular stenosis or regurg. EKG from last night and a repeat EKG this morning reviewed, sinus arrhythmia and tachycardia with PACs and PAT noted. No afib noted. Patient's only complaint this morning is blurry vision and thirst. [facility] Disclaimer: The information contained in this section may have been updated after the patient was seen, as this information can be updated by other users. Medical History (Updated 08/08/23 @ 10:11 by Trixie Porter APRN) Nicotine dependence, unspecified, uncomplicated Colon polyps DM type 2 (diabetes mellitus, type 2) Hyperlipidemia Alcoholism Cirrhosis Hypertension Diabetes mellitus Gout Surgical History (Updated 08/05/23 @ 09:39 by Jairo Singleton MD) History of colonoscopy Social History (Updated 08/04/23 @ 17:33 by Elizabeth Flood RN) Smoking Status: Current every day smoker tobacco type: cigarettes packs per day: 1 alcohol intake: former current occupational status: unemployed Travel in the last 8 weeks: None Review of Systems Constitutional Constitutional: Reports weight loss Comments: Generalized weakness, fall Eyes Eyes: Reports blurry vision ENT Ears, Nose, Mouth, and Throat: Reports dizziness *Cardiovascular Cardiovascular: Denies chest pain and Denies dyspnea *Respiratory Respiratory: Denies dyspnea *Neurologic Neurologic: Reports dizziness Exam Data for Last 24 hours Vital signs and Labs for Last 24 Hours: Temp Pulse Resp BP Pulse Ox O2 Del Method 97.9 F 113 H 22 119/85 92 L Room Air 08/08/23 08:00 08/08/23 09:46 08/08/23 08:00 08/08/23 08:00 08/08/23 08:00 08/08/23 08:00 Laboratory Results - last 24 hr 08/05/23 13:35: Vitamin B1 143.2 08/08/23 05:47: WBC 8.7 D, RBC 2.87 L, Hgb 9.2 L D, Hct 30.4 L, MCV 105.7 H, MCH 32.1 H, MCHC 30.3 L, RDW 15.0, Plt Count 107 L, MPV 10.9 H, Neut % (Auto) 78.5, Lymph % (Auto) 15.2, [place] % (Auto) 4.9, Eos % (Auto) 1.0, Baso % (Auto) 0.4, Neut # (Auto) 6.8, Lymph # (Auto) 1.3, [place] # (Auto) 0.4, Eos # (Auto) 0.1, Baso # (Auto) 0.0, Sodium 127 L, Potassium 4.3, Chloride 107, Carbon Dioxide 19 L, Anion Gap 5.3, BUN 17, Creatinine 1.10, Estimated Creat Clear 68, Estimated GFR 67, Est GFR ( Amer) 81, Glucose 88, Calcium 8.0 L I & O for Last 24 hours: Intake & Output 08/05/23 08/06/23 08/07/23 08/08/23 23:59 23:59 23:59 23:59 Intake Total 1513 / 1753 695 / 695 510 / 510 100 / 100 Output Total 1050 / 1150 675 / 675 250 / 275 275 / 275 Balance 463 / 603 260 / 235 -175 / -175 Weight 150 lb 1.063 oz 158 lb 2.907 oz 157 lb 14.4 oz 160 lb 11.2 oz Constitutional Constitutional: no acute distress *Routine Respiratory Exam Respiratory: Present CTA bilaterally and symmetric chest movement *Routine Cardiovascular Exam Cardiovascular: Present Normal S1, Normal S2, tachycardia and irregular rhythm *Routine Abdominal Exam Abdominal: Present soft and normoactive bowel sounds; Absent tenderness *Routine Extremities Exam Extremities: Present full ROM and normal capillary refill; Absent edema *Routine Skin Exam Skin: Present intact, dry and warm Detailed Neck Exam: Thyroids Thyroid: Absent bruit Meds Home Medications and Allergies Home Medications Medication Instructions Recorded Confirmed Type allopurinol 300 mg tablet 300 mg PO DAILY 08/04/23 08/05/23 History furosemide 20 mg tablet 20 mg PO DAILY 08/04/23 08/05/23 History lisinopril 20 2 tab PO DAILY 08/04/23 08/05/23 History mg-hydrochlorothiazide 12.5 mg tablet metformin 750 mg tablet,extended 750 mg PO TID 08/04/23 08/05/23 History release 24 hr pravastatin 40 mg tablet 40 mg PO HS 08/04/23 08/05/23 History spironolactone 25 mg tablet 25 mg PO DAILY 08/04/23 08/05/23 History verapamil 240 mg 24 hr 240 mg PO DAILY 08/04/23 08/05/23 History capsule,extended release New Prescriptions to Start Prescriptions: Allergies Allergy/AdvReac Type Severity Reaction Status Date / Time No Known Allergies Allergy Verified 06/13/19 20:46 Assessment and Plan *Assessment and plan (1) Sinus arrhythmia: Status: Acute Category: Medical Code(s): I49.8 - Other specified cardiac arrhythmias (2) Tachycardia: Status: Acute Category: Medical Code(s): R00.0 - Tachycardia, unspecified Plan Sinus arrhythmia Tachycardia Short runs of PAT/svt PACs EKGs reviewed with Dr. Garcia, no afib noted Tachycardia noted with activity, improves with rest Start Toprol 25mg po daily Echo from March 2023 shows normal biventricular systolic function with no significant valvular stenosis or regurg. Ascites is incidentally noted. Patient has a history of decompensated cirrhosis. CV summary 08/08/2023: Patient started on Toprol 25 mg p.o. daily. Recheck on patient at 1245- NSR rate of 79. Cardiology will sign off. Please contact service for any additional issues or concerns. Cardiac meds: Toprol 25 mg p.o. daily
[2023-08-08] MEDS: CEFTRIAXONE 1 GM 1 GM in 0.9 % SODIUM CHLORIDE 50 ML IV (12:59)
[2023-08-08 15:22] LABS: Vitamin A 50.1 ug/dL (22.0-69.5)
[2023-08-08] MEDS: MULTIVITAMIN TABLET 1 EACH PO (16:24)
--- NOTE | 2023-08-08 16:36 | PC.NURSE ---
pt resting comfortably in bed. has been drowsy this afternoon. currently nsr on telemetry. nystagmus and mild tremors still present. pt has denied pain. no complaints at this time.
[2023-08-08 17:08] LABS: Zinc 61 ug/dL (44-115)
[2023-08-08 19:09] LABS: Vitamin E Alpha Tocopherol 5.8 mg/L (9.0-29.0); Vitamin E Gamma Tocopherol 0.6 mg/L (0.5-4.9)
[2023-08-08] MEDS: PRAVASTATIN 40MG TAB 40 MG PO (20:22)
[2023-08-09] VITALS (12 sets, daily range): BP systolic 100–130; BP diastolic 62–79; PULSE 52–102; RESP 14–20; TEMP 36.4–36.9; O2SAT 95–98; BMI 28.2
--- NOTE | 2023-08-09 05:04 | PC.NURSE ---
PATIENT IS A/O X 3. COOPERATIVE. FOLLOWS COMMANDS. SPEECH SLOW BUT APPROPRIATE. NO SEIZURE ACTIVITY NOTED. SIDE RAILS PADDED. VITAL SIGNS STABLE/AFEBRILE.
[2023-08-09] MEDS: ALBUTEROL SULFATE 1.25 MG/3 ML VIAL.NEB IH ×4 (06:22→19:02)
[2023-08-09] MEDS: FOLIC ACID 1MG TABLET 1 MG PO (08:19)
[2023-08-09] MEDS: METOPROLOL SUCCINATE XL 25MG TABLET 25 MG PO (08:19)
[2023-08-09] MEDS: MAGNESIUM OXIDE 400MG TABLET 800 MG PO (08:19)
[2023-08-09] MEDS: AZITHROMYCIN 500 MG in 0.9 % SODIUM CHLORIDE 250 ML 250 MG IV (08:19)
[2023-08-09] MEDS: FAMOTIDINE 20MG/2ML VIAL 20 MG IV ×2 (08:20→20:44)
[2023-08-09] MEDS: POTASSIUM CHLORIDE 20MEQ TAB 20 MEQ PO ×2 (08:20→20:44)
[2023-08-09] MEDS: MVI, ADULT NO.1 WITH VIT K 10 ML, THIAMINE HCL 100 MG, MAGNESIUM SULFATE 2 GM in LACTAT... 125 ML IV (09:37)
--- NOTE | 2023-08-09 10:17 | P.PN_ITS ---
Subjective *Date: 08/09/23 *Time: 10:17 Interval history: Patient felt more sedated yesterday afternoon after taking 2 scheduled doses of Serax. It was changed back to PRN and his symptoms resolved. He does have some nausea and abd pain this morning, did have a bowel movement this morning. Cardiology did not think patient was in A. fib yesterday. Medical Exam Vital signs and Labs for Last 24 Hours: Vital Signs Temp Pulse Pulse Resp BP Pulse Ox O2 Del Method 08/09/23 08:00 100 H 08/09/23 08:00 Room Air 08/09/23 07:54 98.1 F 102 H 18 108/79 L 96 Room Air 08/09/23 06:37 Room Air 08/09/23 06:24 90 08/09/23 06:24 83 08/09/23 06:24 96 Room Air 08/09/23 04:54 Room Air 08/09/23 04:00 97.5 F L 88 16 119/73 97 Room Air 08/09/23 04:00 84 08/09/23 03:00 Room Air 08/09/23 00:51 Room Air 08/09/23 00:00 97.9 F 91 H 16 130/78 98 Room Air 08/09/23 00:00 90 08/08/23 23:00 Room Air 08/08/23 21:00 Room Air 08/08/23 20:30 79 08/08/23 20:30 81 08/08/23 20:00 98 Room Air 08/08/23 20:00 86 08/08/23 20:00 97.7 F 82 16 123/76 98 Room Air 08/08/23 18:25 Room Air 08/08/23 17:00 Room Air 08/08/23 16:00 94 L Room Air 08/08/23 16:00 80 08/08/23 16:00 99.2 F 82 20 122/80 91 L Room Air 08/08/23 15:00 Room Air 08/08/23 13:54 70 08/08/23 13:54 76 08/08/23 13:00 Room Air 08/08/23 12:00 80 08/08/23 11:19 97.6 F 79 19 112/68 95 Room Air 08/08/23 11:00 Room Air Intake and Output 08/08/23 08/09/2324 23:59 07:59 15:59 Intake Total 475 / 475 Output Total 400 / 825 250 / 250 Balance -400 / 977 225 / 225 Intake: Intake, Oral Amount 475 / 475 Output: Output, Urine Amount 400 / 825 250 / 250 Other: Number of Unmeasured Voids 1 1 Number of Bowel Movements 1 Weight 165 lb 4.8 oz Patient Weight 08/09/23 23:59 Weight 165 lb 4.8 oz Laboratory Results - last 24 hr 08/05/23 10:40: Vitamin A 50.1, Alpha-Tocopherol Vit E 5.8 L, Gamma-Tocopherol Vit E 0.6 08/05/23 13:35: Zinc 61 I & O for Labs for Last 24 Hours: Intake & Output 08/06/23 08/07/23 08/08/23 08/09/23 23:59 23:59 23:59 23:59 Intake Total 695 / 695 510 / 510 1562 / 1802 475 / 475 Output Total 675 / 675 250 / 275 675 / 825 250 / 250 Balance 260 / 235 887 / 977 225 / 225 Weight 158 lb 2.907 oz 157 lb 14.4 oz 160 lb 11.2 oz 165 lb 4.8 oz Constitutional: Present no acute distress Eyes: Present other (nystagmus present) Respiratory: Present rhonchi Cardiac: Present Reg Rate and Rhythm GI: Present soft; Absent distention or tenderness Extremities: Absent edema Skin: Present intact Neuro: Present alert, awake and oriented x 3 Assessment and Plan *Assessment and plan (1) Falls: Status: Acute Category: Medical Code(s): R29.6 - Repeated falls (2) Muscle weakness: Status: Acute Category: Medical Code(s): M62.81 - Muscle weakness (generalized) (3) Adult failure to thrive: Status: Acute Category: Medical Code(s): R62.7 - Adult failure to thrive (4) Hypomagnesemia: Status: Acute Category: Medical Code(s): E83.42 - Hypomagnesemia (5) Acute hyponatremia: Status: Acute Category: Medical Code(s): E87.1 - Hypo-osmolality and hyponatremia (6) EWA (acute kidney injury): Status: Acute Category: Medical Code(s): N17.9 - Acute kidney failure, unspecified (7) Physical deconditioning: Status: Acute Category: Medical Code(s): R53.81 - Other malaise (8) Dyspnea on exertion: Status: Acute Category: Medical Code(s): R06.09 - Other forms of dyspnea (9) Nystagmus: Status: Acute Category: Medical Code(s): H55.00 - Unspecified nystagmus (10) Anorexia: Status: Acute Category: Medical Code(s): R63.0 - Anorexia (11) Weight loss, unintentional: Status: Acute Category: Medical Code(s): R63.4 - Abnormal weight loss (12) DM type 2 (diabetes mellitus, type 2): Status: Acute Category: Medical Code(s): E11.9 - Type 2 diabetes mellitus without complications (13) Alcoholism: Status: Acute Category: Medical Code(s): F10.20 - Alcohol dependence, uncomplicated (14) Closed T12 spinal fracture: Status: Acute Category: Medical Code(s): S22.089A - Unspecified fracture of T11-T12 vertebra, initial encounter for close d fracture (15) Hypokalemia: Status: Acute Category: Medical Code(s): E87.6 - Hypokalemia (16) Leukocytosis: Status: Acute Category: Medical Code(s): D72.829 - Elevated white blood cell count, unspecified (17) CAP (community acquired pneumonia): Status: Acute Category: Medical Code(s): J18.9 - Pneumonia, unspecified organism (18) Tachycardia: Status: Acute Category: Medical Code(s): R00.0 - Tachycardia, unspecified (19) Sinus arrhythmia: Status: Acute Category: Medical Code(s): I49.8 - Other specified cardiac arrhythmias Plan Plan to continue current treatment. BP meds changed per pharmacy. Still awaiting upper GI series results.
[2023-08-09] MEDS: CEFTRIAXONE 1 GM 1 GM in 0.9 % SODIUM CHLORIDE 50 ML IV (14:00)
--- NOTE | 2023-08-09 17:30 | PC.NURSE ---
pt more alert and interactive today, aox4, has spent the day in bed, incontinent of bowel today but still using urinal. tolerating po intake better today. has not required o2 support this shift.
[2023-08-09] MEDS: PRAVASTATIN 40MG TAB 40 MG PO (20:44)
[2023-08-10] VITALS (10 sets, daily range): BP systolic 111–136; BP diastolic 60–95; PULSE 80–92; RESP 14–22; TEMP 36.4–37; O2SAT 95–100; BMI 29.5
--- NOTE | 2023-08-10 00:03 | PC.NURSE ---
RASH STILL PERSISTANT TO LOWER RIGHT ABDOMEN AND GROIN. NO C/O ITCHING OR BURNING. NO COUGHING NOTED. STILL NEED SPUTUM. LUNG SOUNDS DIMINISHED WITH FAINT RHONCHI NOTED RIGHT LUNG. 02 SAT 96 % ON ROOM AIR. DENIES PAIN/DISCOMFORT/SOA. HOB UP 35 DEGREES FOR COMFORT.
[2023-08-10] MEDS: FAMOTIDINE 20MG/2ML VIAL 20 MG IV (07:52)
[2023-08-10] MEDS: AZITHROMYCIN 500 MG in 0.9 % SODIUM CHLORIDE 250 ML 250 MG IV (07:53)
[2023-08-10] MEDS: FOLIC ACID 1MG TABLET 1 MG PO (07:53)
[2023-08-10] MEDS: METOPROLOL SUCCINATE XL 25MG TABLET 25 MG PO (07:53)
[2023-08-10] MEDS: ONDANSETRON 4MG/2ML VIAL 4 MG IV (07:56)
--- NOTE | 2023-08-10 08:26 | EXP.ACUTE.PN ---
Subjective *Date: 08/10/23 *Time: 08:50 Interval history: Patient is not feeling well today. He is nauseated and dizzy. He states he was able to sleep last night but cannot eat this am. He tried to eat a piece of frye and had to have nausea medication. He denies any pain. Medical Exam Vital signs and Labs for Last 24 Hours: Vital Signs Temp Pulse Pulse Resp BP Pulse Ox O2 Del Method 08/10/23 08:00 98.0 F 90 21 117/72 98 Room Air 08/10/23 06:29 Room Air 08/10/23 04:51 Room Air 08/10/23 04:00 98.6 F 92 H 14 114/78 96 Room Air 08/10/23 04:00 83 08/10/23 02:54 Room Air 08/10/23 01:00 Room Air 08/10/23 00:00 92 H 08/10/23 00:00 98.4 F 88 20 119/79 95 Room Air 08/09/23 23:00 Room Air 08/09/23 21:00 Room Air 08/09/23 19:55 96 Room Air 08/09/23 19:55 93 H 08/09/23 19:30 98.2 F 96 H 18 122/76 96 Room Air 08/09/23 19:02 97 Room Air 08/09/23 19:02 93 H 08/09/23 19:02 96 H 08/09/23 18:17 Room Air 08/09/23 17:00 Room Air 08/09/23 16:00 100 H 08/09/23 16:00 98.4 F 91 H 18 107/72 L 97 Room Air 08/09/23 14:38 Room Air 08/09/23 14:14 52 L 08/09/23 14:14 61 08/09/23 14:14 95 Room Air 08/09/23 13:00 Room Air 08/09/23 12:00 98.5 F 93 H 20 100/62 L 97 Room Air 08/09/23 12:00 96 H 08/09/23 11:00 Room Air 08/09/23 10:50 87 14 08/09/23 10:50 87 08/09/23 10:50 87 08/09/23 10:50 98 Room Air 08/09/23 09:00 Room Air Intake and Output 08/09/23 08/10/23 08/10/23 19:59 03:59 11:59 Intake Total 1560 Output Total 150 / 1050 800 / 1050 100 / 1050 Balance 1411 / 951 -360 / 951 -100 / 951 Intake: Intake, Oral Amount 355 / 795 440 / 795 Infusion Intake 1206 / 1206 Azithromycin 500 mg In 0.9 % 250 / 250 Sodium Chloride 250 ml @ 250 mls/hr IV DAILY [facility] Rx#: [id number] Mvi, Adult No.1 with Vit K 10 956 / 956 ml Thiamine HCl 100 mg Magnesium Sulfate 2 gm In Lactated Ringers 1000ML 1,000 ml @ 125 mls/hr IV DAILY [facility] Rx #:[id number] Output: Output, Urine Amount 150 / 1050 800 / 1050 100 / 1050 Other: Number of Unmeasured Voids 0 Weight 173 lb 1.6 oz Patient Weight 08/10/23 11:59 Weight 173 lb 1.6 oz Laboratory Results - last 24 hr 08/05/23 13:35: Vitamin B6 TNP I & O for Labs for Last 24 Hours: Intake & Output 08/07/23 08/08/23 08/09/23 08/10/23 11:59 11:59 11:59 11:59 Intake Total 455 / 455 610 / 610 1937 / 1937 2000 Output Total 450 / 450 275 / 275 650 / 650 1050 / 1050 Balance 5 / 5 335 / 335 1287 / 1287 951 / 951 Weight 157 lb 14.4 oz 160 lb 11.2 oz 165 lb 4.8 oz 173 lb 1.6 oz Constitutional: Present no acute distress Eyes: Present other (nystagmus present) Respiratory: Present rhonchi Cardiac: Present Reg Rate and Rhythm GI: Present soft; Absent distention or tenderness Extremities: Absent edema Skin: Present intact Neuro: Present alert, awake and oriented x 3 Assessment and Plan *Assessment and plan (1) Falls: Status: Acute Category: Medical Code(s): R29.6 - Repeated falls (2) Muscle weakness: Status: Acute Category: Medical Code(s): M62.81 - Muscle weakness (generalized) (3) Adult failure to thrive: Status: Acute Category: Medical Code(s): R62.7 - Adult failure to thrive (4) Hypomagnesemia: Status: Acute Category: Medical Code(s): E83.42 - Hypomagnesemia (5) Acute hyponatremia: Status: Acute Category: Medical Code(s): E87.1 - Hypo-osmolality and hyponatremia (6) EWA (acute kidney injury): Status: Acute Category: Medical Code(s): N17.9 - Acute kidney failure, unspecified (7) Physical deconditioning: Status: Acute Category: Medical Code(s): R53.81 - Other malaise (8) Dyspnea on exertion: Status: Acute Category: Medical Code(s): R06.09 - Other forms of dyspnea (9) Nystagmus: Status: Acute Category: Medical Code(s): H55.00 - Unspecified nystagmus (10) Anorexia: Status: Acute Category: Medical Code(s): R63.0 - Anorexia (11) Weight loss, unintentional: Status: Acute Category: Medical Code(s): R63.4 - Abnormal weight loss (12) DM type 2 (diabetes mellitus, type 2): Status: Acute Category: Medical Code(s): E11.9 - Type 2 diabetes mellitus without complications (13) Alcoholism: Status: Acute Category: Medical Code(s): F10.20 - Alcohol dependence, uncomplicated (14) Closed T12 spinal fracture: Status: Acute Category: Medical Code(s): S22.089A - Unspecified fracture of T11-T12 vertebra, initial encounter for closed fracture (15) Hypokalemia: Status: Acute Category: Medical Code(s): E87.6 - Hypokalemia (16) Leukocytosis: Status: Acute Category: Medical Code(s): D72.829 - Elevated white blood cell count, unspecified (17) CAP (community acquired pneumonia): Status: Acute Category: Medical Code(s): J18.9 - Pneumonia, unspecified organism (18) Tachycardia: Status: Acute Category: Medical Code(s): R00.0 - Tachycardia, unspecified (19) Sinus arrhythmia: Status: Acute Category: Medical Code(s): I49.8 - Other specified cardiac arrhythmias Plan Upper GI showed : Markedly prominent gastric and duodenal folds. Endoscopic correlation is recommended. Patient has received nausea medication this am. Will discuss further care with Dr. Singleton. Dr. Singleton entry - Saw patient, agree with above note.
--- NOTE | 2023-08-10 08:37 | EXP.PHA.PN ---
Subjective *Date: 08/10/23 *Time: 08:37 Medical Exam Vital signs and Labs for Last 24 Hours: Vital Signs Temp Pulse Pulse Resp BP Pulse Ox O2 Del Method 08/10/23 08:28 Room Air 08/10/23 08:00 98.0 F 90 21 117/72 98 Room Air 08/10/23 06:29 Room Air 08/10/23 04:51 Room Air 08/10/23 04:00 98.6 F 92 H 14 114/78 96 Room Air 08/10/23 04:00 83 08/10/23 02:54 Room Air 08/10/23 01:00 Room Air 08/10/23 00:00 92 H 08/10/23 00:00 98.4 F 88 20 119/79 95 Room Air 08/09/23 23:00 Room Air 08/09/23 21:00 Room Air 08/09/23 19:55 96 Room Air 08/09/23 19:55 93 H 08/09/23 19:30 98.2 F 96 H 18 122/76 96 Room Air 08/09/23 19:02 97 Room Air 08/09/23 19:02 93 H 08/09/23 19:02 96 H 08/09/23 18:17 Room Air 08/09/23 17:00 Room Air 08/09/23 16:00 100 H 08/09/23 16:00 98.4 F 91 H 18 107/72 L 97 Room Air 08/09/23 14:38 Room Air 08/09/23 14:14 52 L 08/09/23 14:14 61 08/09/23 14:14 95 Room Air 08/09/23 13:00 Room Air 08/09/23 12:00 98.5 F 93 H 20 100/62 L 97 Room Air 08/09/23 12:00 96 H 08/09/23 11:00 Room Air 08/09/23 10:50 87 14 08/09/23 10:50 87 08/09/23 10:50 87 08/09/23 10:50 98 Room Air 08/09/23 09:00 Room Air Intake and Output 08/09/23 08/10/23 08/10/23 23:59 07:59 15:59 Intake Total 1326 / 2476 440 / 440 Output Total 750 / 1200 200 / 300 100 / 300 Balance 576 / 1276 240 / 140 -100 / 140 Intake: Intake, Oral Amount 120 / 1270 440 / 440 Infusion Intake 1206 / 1206 Azithromycin 500 mg In 0.9 % 250 / 250 Sodium Chloride 250 ml @ 250 mls/hr IV DAILY [facility] Rx#: [id number] Mvi, Adult No.1 with Vit K 10 956 / 956 ml Thiamine HCl 100 mg Magnesium Sulfate 2 gm In Lactated Ringers 1000ML 1,000 ml @ 125 mls/hr IV DAILY [facility] Rx #:[id number] Output: Output, Urine Amount 750 / 1200 200 / 300 100 / 300 Other: Number of Unmeasured Voids 0 Weight 78.517 kg Patient Weight 08/10/23 23:59 Weight 78.517 kg Laboratory Results - last 24 hr 08/05/23 13:35: Vitamin B6 TNP I & O for Labs for Last 24 Hours: Intake & Output 08/07/23 08/08/23 08/09/23 08/10/23 23:59 23:59 23:59 23:59 Intake Total 510 / 510 1562 / 1802 2036 / 2476 440 / 440 Output Total 250 / 275 675 / 825 1000 / 1200 300 / 300 Balance 260 / 235 887 / 977 1036 / 1276 140 / 140 Weight 71.622 kg 72.892 kg 74.979 kg 78.517 kg The patient's infection will respond to the chosen ABx?: Yes Is the patient receiving the right drug, dose, and route?: Yes Could a more targeted ABx be ordered?: No (SPUTUM CX ORDERED)
--- NOTE | 2023-08-10 09:13 | P.CONS_ITS ---
History of Present Illness *Admission Date: 08/04/23 *Reason for visit:: Anemia, abnormal upper GI, alcoholism, possible EGD *History of present illness: Patient is a 68-year-old male who was admitted to the hospital last Sunday on 08/04/2023 with weakness and falling. He has a history of known decompensated alcoholic cirrhosis with ascites. He has previously seen a mdm developer. He did apparently have an ER visit on 07/27/2023 at which time he presented with abdominal distention and he was found to have extensive ascites. There was concern for spontaneous bacterial peritonitis and he had diagnostic paracentesis performed. At that time he was briefly admitted to the floor as he had been accepted to [facility] and was transferred there for management. He presented to the emergency room at this facility on 08/04/2023 with progressive weakness and falls. Patient has a long history of alcoholism. He was admitted for inpatient management. Hemoglobin on 07/27/2023 was 10.7. When he presented to the emergency department on 08/04/2023 it was 10.9. On 08/06/2023 it was 9.6. Hemoglobin transiently increased to 10.4 and on 08/08/2023 was 9.2 and today is 9.3. Patient has remained an inpatient this week. He did not undergo cardiology consultation due to possible atrial fibrillation. He did undergo an upper GI series. This revealed markedly prominent gastric and duodenal folds. Surgical consultation was ordered due to these findings. Patient denies any symptoms consistent with hematochezia or melena. . [facility] Disclaimer: The information contained in this section may have been updated after the patient was seen, as this information can be updated by other users. Medical History (Updated 08/10/23 @ 09:42 by Sav Eng MD) Nicotine dependence, unspecified, uncomplicated Colon polyps DM type 2 (diabetes mellitus, type 2) Hyperlipidemia Alcoholism Cirrhosis Hypertension Diabetes mellitus Gout Surgical History (Updated 08/05/23 @ 09:39 by Jairo Singleton MD) History of colonoscopy Social History (Updated 08/04/23 @ 17:33 by Elizabeth Flood RN) Smoking Status: Current every day smoker tobacco type: cigarettes packs per day: 1 alcohol intake: former current occupational status: unemployed Travel in the last 8 weeks: None Review of Systems ENT Ears, Nose, Mouth, and Throat: Reports dizziness *Neurologic Neurologic: Reports dizziness Meds Home Medications and Allergies Home Medications Medication Instructions Recorded Confirmed Type allopurinol 300 mg tablet 300 mg PO DAILY 08/04/23 08/05/23 History furosemide 20 mg tablet 20 mg PO DAILY 08/04/23 08/05/23 History lisinopril 20 2 tab PO DAILY 08/04/23 08/05/23 History mg-hydrochlorothiazide 12.5 mg tablet metformin 750 mg tablet,extended 750 mg PO TID 08/04/23 08/05/23 History release 24 hr pravastatin 40 mg tablet 40 mg PO HS 08/04/23 08/05/23 History spironolactone 25 mg tablet 25 mg PO DAILY 08/04/23 08/05/23 History verapamil 240 mg 24 hr 240 mg PO DAILY 08/04/23 08/05/23 History capsule,extended release New Prescriptions to Start Prescriptions: Allergies Allergy/AdvReac Type Severity Reaction Status Date / Time No Known Allergies Allergy Verified 06/13/19 20:46 Exam (Inpt) Vital signs and Labs for Last 24 Hours: Temp Pulse Resp BP Pulse Ox O2 Del Method 98.0 F 90 21 117/72 98 Room Air 08/10/23 08:00 08/10/23 08:00 08/10/23 08:00 08/10/23 08:00 08/10/23 08:00 08/10/23 08:28 Laboratory Results - last 24 hr 08/05/23 13:35: Vitamin B6 TNP I & O for Labs for Last 24 Hours: Intake & Output 08/07/23 08/08/23 08/09/23 08/10/23 11:59 11:59 11:59 11:59 Intake Total 455 / 455 610 / 610 1937 / 1937 2161 / 2161 Output Total 450 / 450 275 / 275 650 / 650 1050 / 1050 Balance 5 / 5 335 / 335 1287 / 1287 1111 / 1111 Weight 157 lb 14.4 oz 160 lb 11.2 oz 165 lb 4.8 oz 173 lb 1.6 oz Constitutional: chronically ill appearing GI: Present soft, distention and ascites; Absent tenderness Results Labs 08/10/23 09:25 08/10/23 09:25 Labs: Laboratory Results - last 24 hr 08/05/23 13:35: Vitamin B6 TNP Assessment and Plan *Assessment and plan (1) Anemia: Status: Acute Category: Medical Code(s): D64.9 - Anemia, unspecified Plan Patient has ascites secondary to decompensated alcoholic cirrhosis and anemia. Fortunately his PT and INR are unremarkable. Upper GI consistent with possible gastritis/duodenitis characterized by prominent gastric and duodenal folds. Patient has been taking in limited amount of regular diet. Hemoglobin been relatively stable during this hospitalization with no evidence of any acute bleeding. Unknown if the patient has esophageal varices, although this is a real possibility given his history. He has persistent hyponatremia secondary to his ascites. I would not pursue upper endoscopy urgently due to his risk factors from his metabolic disease with lack of evidence of acute bleeding. Also, there is the possibility of esophageal varices which currently is not capable of being treated at this facility endoscopically. Recommend evaluation with gastroenterology in the near future. In the interim, prior to gastroenterology evaluation, recommend empiric medical treatment for gastritis/duodenitis. If patient develops findings of acute blood loss endoscopy may be necessary.
[2023-08-10] MEDS: MVI, ADULT NO.1 WITH VIT K 10 ML, THIAMINE HCL 100 MG, MAGNESIUM SULFATE 2 GM in LACTAT... 125 ML IV (09:16)
[2023-08-10 09:31] LABS: Basophils # 0.1 K/mm3 (0-0.2); Basophils % 0.8 % (0.1-2.0); Eosinophils # 0.2 K/mm3 (0.0-0.4); Eosinophils % 2.7 % (0.1-12.0); Hematocrit 28.7 % (42.0-52.0); Hemoglobin 9.3 g/dL (14.1-18.0); Lymphocytes # 1.4 K/mm3 (0.7-4.5); Lymphocytes % 17.7 % (10-50); Mean Corpuscular HGB Conc 32.3 g/dL (31.8-35.4); Mean Corpuscular Hemoglobin 31.8 pg (27.0-31.2); Mean Corpuscular Volume 98.4 fl (80-94); Mean Platelet Volume 10.1 fl (7.4-10.4); Monocytes # 0.4 K/mm3 (0.1-1.0); Monocytes % 5.5 % (1.7-9.3); Neutrophils # 5.7 K/mm3 (1.8-7.8); Neutrophils % 73.2 % (37.0-80.0); Platelet Count 196 K/mm3 (142-424); Red Blood Count 2.91 M/mm3 (4.60-6.20); Red Cell Distribution Width 15.6 % (11.5-17.5); White Blood Count 7.8 K/mm3 (4.8-10.8)
[2023-08-10 09:38] LABS: Chloride 111 mmol/L (98-107); Sodium 132 mmol/L (136-145)
[2023-08-10 09:42] LABS: Blood Urea Nitrogen 15 mg/dl (9-20); Calcium 8.4 mg/dl (8.4-10.2); Carbon Dioxide 22 mmol/L (22.0-30.0); Creatinine Clearance Estimated 58 mL/min (50-200); Estimated Glomerular Filt Rate 51 ml/min (>60); GFR (African American) 61 ML/MIN (>60); Glucose 97 mg/dl (74-100)
[2023-08-10] MEDS: ALBUTEROL SULFATE 1.25 MG/3 ML VIAL.NEB IH ×2 (13:08→19:15)
[2023-08-10] MEDS: CEFTRIAXONE 1 GM 1 GM in 0.9 % SODIUM CHLORIDE 50 ML IV (14:14)
--- NOTE | 2023-08-10 14:24 | PC.NURSE ---
Aox4, up with assist x 2, bed alarm on, 20g L W, PT and OT following 90's on RA.
[2023-08-10 14:29] LABS: Vitamin C 0.1 mg/dL (0.4-2.0)
[2023-08-10] MEDS: POTASSIUM CHLORIDE 20MEQ TAB 20 MEQ PO (21:52)
[2023-08-10] MEDS: PRAVASTATIN 40MG TAB 40 MG PO (21:52)
[2023-08-10] MEDS: PANTOPRAZOLE 40MG VIAL 40 MG IV (21:55)
[2023-08-10] MEDS: SODIUM CHLORIDE 0.9% 10ML VIAL 10 ML IV (21:55)
[2023-08-11] VITALS (12 sets, daily range): BP systolic 101–143; BP diastolic 74–93; PULSE 70–90; RESP 16–18; TEMP 36.6–37.1; O2SAT 94–99; BMI 29.4
[2023-08-11] MEDS: ALBUTEROL SULFATE 1.25 MG/3 ML VIAL.NEB IH ×3 (06:08→19:47)
--- NOTE | 2023-08-11 08:45 | EXP.SURG.PN ---
Subjective Patient reports: no new complaints Exam Data for Last 24 hours Vital signs and Labs for Last 24 Hours: Temp Pulse Resp BP Pulse Ox O2 Del Method 98.7 F 80 18 127/74 95 Room Air 08/11/23 04:00 08/11/23 06:10 08/11/23 04:00 08/11/23 04:00 08/11/23 06:08 08/11/23 06:50 Laboratory Results - last 24 hr 08/05/23 13:35: Vitamin C 0.1 L 08/10/23 09:25: WBC 7.8, RBC 2.91 L, Hgb 9.3 L, Hct 28.7 L, MCV 98.4 H, MCH 31.8 H, MCHC 32.3, RDW 15.6, Plt Count 196 D, MPV 10.1, Neut % (Auto) 73.2, Lymph % (Auto) 17.7, [place] % (Auto) 5.5, Eos % (Auto) 2.7, Baso % (Auto) 0.8, Neut # (Auto) 5.7, Lymph # (Auto) 1.4, [place] # (Auto) 0.4, Eos # (Auto) 0.2, Baso # (Auto) 0.1, Sodium 132 L, Potassium 5.0, Chloride 111 H, Carbon Dioxide 22, Anion Gap 4.0 L, BUN 15, Creatinine 1.40 H D, Estimated Creat Clear 58, Estimated GFR 51 L, Est GFR ( Amer) 61 D, Glucose 97, Calcium 8.4 I & O for Last 24 hours: Intake & Output 08/08/23 08/09/23 08/10/23 08/11/23 11:59 11:59 11:59 11:59 Intake Total 610 / 610 1937 / 1937 2161 / 2161 1460 / 1460 Output Total 275 / 275 650 / 650 1050 / 1050 700 / 700 Balance 335 / 335 1287 / 1287 1111 / 1111 760 / 760 Weight 160 lb 11.2 oz 165 lb 4.8 oz 173 lb 1.6 oz 172 lb 6.4 oz *Routine Abdominal Exam Abdominal: Present distended; Absent tenderness Progress Note: A&P Assessment and plan (1) Anemia: Status: Acute Assessment and plan: Hemoglobin higher than yesterday.
[2023-08-11] MEDS: AZITHROMYCIN 500 MG in 0.9 % SODIUM CHLORIDE 250 ML 250 MG IV (10:01)
[2023-08-11] MEDS: MVI, ADULT NO.1 WITH VIT K 10 ML, THIAMINE HCL 100 MG, MAGNESIUM SULFATE 2 GM in LACTAT... 125 ML IV (10:01)
[2023-08-11] MEDS: POTASSIUM CHLORIDE 20MEQ TAB 20 MEQ PO ×2 (10:02→21:19)
[2023-08-11] MEDS: FOLIC ACID 1MG TABLET 1 MG PO (10:02)
[2023-08-11] MEDS: METOPROLOL SUCCINATE XL 25MG TABLET 25 MG PO (10:02)
[2023-08-11] MEDS: MAGNESIUM OXIDE 400MG TABLET 800 MG PO (10:02)
[2023-08-11] MEDS: PANTOPRAZOLE 40MG VIAL 40 MG IV ×2 (10:03→21:20)
--- NOTE | 2023-08-11 12:04 | EXP.ACUTE.PN ---
Subjective *Date: 08/11/23 *Time: 12:04 Interval history: He complains most bitterly about his nystagmus and visual disturbance. I have reviewed his neurologic studies including CTA of the head and of the neck. 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 There is nothing acute. The carotids and vertebralsAre patent. There is thus no obvious imaging explanation for his nystagmus. He is being followed by Dr. Eng. Medical Exam Vital signs and Labs for Last 24 Hours: Vital Signs Temp Pulse Pulse Resp BP Pulse Ox O2 Del Method 08/11/23 11:00 Room Air 08/11/23 09:50 Room Air 08/11/23 09:00 Room Air 08/11/23 08:00 98.1 F 88 17 114/86 96 08/11/23 06:50 Room Air 08/11/23 06:10 80 08/11/23 06:10 82 08/11/23 06:08 95 Room Air 08/11/23 05:00 Room Air 08/11/23 04:00 90 08/11/23 04:00 98.7 F 71 18 127/74 96 Room Air 08/11/23 03:00 Room Air 08/11/23 01:00 Room Air 08/11/23 00:00 98.7 F 81 18 130/89 97 Room Air 08/11/23 00:00 80 08/10/23 23:00 Room Air 08/10/23 21:00 Room Air 08/10/23 20:00 Room Air 08/10/23 20:00 90 08/10/23 20:00 98.2 F 83 22 136/95 H 100 Room Air 08/10/23 19:21 89 08/10/23 19:21 90 08/10/23 17:50 Room Air 08/10/23 16:00 80 08/10/23 15:59 Room Air 08/10/23 15:33 98.4 F 82 22 111/60 98 Room Air 08/10/23 14:04 Room Air 08/10/23 13:07 89 08/10/23 13:07 86 Intake and Output 08/11/23 08/11/23 08/11/23 03:59 11:59 19:59 Intake Total 240 / 1700 240 / 1700 Output Total 200 / 700 300 / 700 Balance 40 / 1000 -60 / 1000 Intake: Intake, Oral Amount 240 / 650 240 / 650 Output: Output, Urine Amount 200 / 700 300 / 700 Other: Number of Unmeasured Voids 1 Number of Bowel Movements 1 Weight 172 lb 6.4 oz Laboratory Results - last 24 hr 08/05/23 13:35: Vitamin C 0.1 L I & O for Labs for Last 24 Hours: Intake & Output 08/09/23 08/10/23 08/11/23 08/12/23 11:59 11:59 11:59 11:59 Intake Total 1937 / 1937 2161 / 2161 1700 / 1700 Output Total 650 / 650 1050 / 1050 700 / 700 Balance 1287 / 1287 1111 / 1111 1000 / 1000 Weight 165 lb 4.8 oz 173 lb 1.6 oz 172 lb 6.4 oz Head: Present normocephalic Eyes: Present other (Nystagmus is evident. Seems almost rotatory) ENT: Present normal exam Neck: Present normal inspection Respiratory: Present rales (Some bibasilar); Absent respiratory distress Cardiac: Present Reg Rate and Rhythm GI: Present soft and distention Rectal (male): Present deferred (male): Present deferred Extremities: Absent edema Skin: Present intact Neuro: Present No Lateralizing Findings and Other (Difficulty with finger pointing); Absent Cranial Nerve 2-12 Intact (Nystagmus evident) Assessment and Plan *Assessment and plan (1) Anemia: Status: Acute Category: Medical Code(s): D64.9 - Anemia, unspecified (2) Alcoholism: Status: Acute Category: Medical Code(s): F10.20 - Alcohol dependence, uncomplicated (3) Nystagmus: Status: Acute Category: Medical Code(s): H55.00 - Unspecified nystagmus (4) Muscle weakness: Status: Acute Category: Medical Code(s): M62.81 - Muscle weakness (generalized) (5) DM type 2 (diabetes mellitus, type 2): Status: Acute Category: Medical Code(s): E11.9 - Type 2 diabetes mellitus without complications (6) Adult failure to thrive: Status: Acute Category: Medical Code(s): R62.7 - Adult failure to thrive (7) Physical deconditioning: Status: Acute Category: Medical Code(s): R53.81 - Other malaise Plan continue care per orders. Meclizine ordered.
[2023-08-11] MEDS: MECLIZINE 25MG TABLET 25 MG PO ×2 (13:07→21:19)
[2023-08-11] MEDS: CEFTRIAXONE 1 GM 1 GM in 0.9 % SODIUM CHLORIDE 50 ML IV (14:23)
[2023-08-11] MEDS: PRAVASTATIN 40MG TAB 40 MG PO (21:19)
[2023-08-11] MEDS: SODIUM CHLORIDE 0.9% 10ML VIAL 10 ML IV (21:20)
[2023-08-12] VITALS (8 sets, daily range): BP systolic 126–141; BP diastolic 82–92; PULSE 71–102; RESP 15–20; TEMP 36.6–37; O2SAT 94–100; BMI 29.4
--- NOTE | 2023-08-12 05:23 | PC.NURSE ---
Patient is alert and oriented x4. Patient has slept throughout most of the night and does not have any complaints at this time. Patient has had one diarrheal episode this shift. Nystagmus was noticed in patient's eyes. Patient's bowel sounds were very active in all four quadrants. Patient has significant dark purple bruising on his right upper arm around his IV site. Patient has an elbow dressing (covering a prior skin tear) intact on his left elbow; gauze wrapped in coban is over a prior skin tear on his right wrist. Patient has heel protectors in place for comfort. Both of his hands are very bruised as well. Patient has received his bedtime meds per APR. I emptied 175 mL of urine from his urinal this shift. Seizure pads remain in place. No acute changes noted at this time.
[2023-08-12] MEDS: LEVOTHYROXINE 25MCG (0.025MG) TAB 25 MCG PO (06:26)
[2023-08-12] MEDS: ALBUTEROL SULFATE 1.25 MG/3 ML VIAL.NEB IH (06:52)
[2023-08-12 07:20] LABS: Basophils % 0.5 % (0.1-2.0); Eosinophils # 0.2 K/mm3 (0.0-0.4); Eosinophils % 3.1 % (0.1-12.0); Hematocrit 30.5 % (42.0-52.0); Hemoglobin 9.6 g/dL (14.1-18.0); Lymphocytes # 1.4 K/mm3 (0.7-4.5); Lymphocytes % 20.5 % (10-50); Mean Corpuscular HGB Conc 31.5 g/dL (31.8-35.4); Mean Corpuscular Hemoglobin 31.4 pg (27.0-31.2); Mean Corpuscular Volume 99.7 fl (80-94); Mean Platelet Volume 10.3 fl (7.4-10.4); Monocytes # 0.4 K/mm3 (0.1-1.0); Monocytes % 6.6 % (1.7-9.3); Neutrophils # 4.6 K/mm3 (1.8-7.8); Neutrophils % 69.2 % (37.0-80.0); Platelet Count 212 K/mm3 (142-424); Red Blood Count 3.05 M/mm3 (4.60-6.20); Red Cell Distribution Width 15.6 % (11.5-17.5); White Blood Count 6.7 K/mm3 (4.8-10.8)
[2023-08-12] MEDS: MAGNESIUM OXIDE 400MG TABLET 800 MG PO (08:19)
[2023-08-12] MEDS: FOLIC ACID 1MG TABLET 1 MG PO (08:19)
[2023-08-12] MEDS: MECLIZINE 25MG TABLET 25 MG PO ×3 (08:19→21:33)
[2023-08-12] MEDS: PANTOPRAZOLE 40MG VIAL 40 MG IV ×2 (08:19→21:33)
[2023-08-12] MEDS: METOPROLOL SUCCINATE XL 25MG TABLET 25 MG PO (08:19)
[2023-08-12] MEDS: POTASSIUM CHLORIDE 20MEQ TAB 20 MEQ PO (08:19)
[2023-08-12] MEDS: AZITHROMYCIN 500 MG in 0.9 % SODIUM CHLORIDE 250 ML 250 MG IV (08:19)
--- NOTE | 2023-08-12 08:25 | EXP.SURG.PN ---
Subjective Narrative: Patient sleeping Exam Data for Last 24 hours Vital signs and Labs for Last 24 Hours: Temp Pulse Resp BP Pulse Ox O2 Del Method 98.6 F 99 H 15 134/92 H 94 L Room Air 08/12/23 04:00 08/12/23 06:52 08/12/23 04:00 08/12/23 04:00 08/12/23 06:52 08/12/23 06:52 Laboratory Results - last 24 hr 08/12/23 06:50: WBC 6.7, RBC 3.05 L, Hgb 9.6 L, Hct 30.5 L, MCV 99.7 H, MCH 31.4 H, MCHC 31.5 L, RDW 15.6, Plt Count 212, MPV 10.3, Neut % (Auto) 69.2, Lymph % (Auto) 20.5, [place] % (Auto) 6.6, Eos % (Auto) 3.1, Baso % (Auto) 0.5, Neut # (Auto) 4.6, Lymph # (Auto) 1.4, [place] # (Auto) 0.4, Eos # (Auto) 0.2, Baso # (Auto) 0.0 I & O for Last 24 hours: Intake & Output 08/09/23 08/10/23 08/11/23 08/12/23 11:59 11:59 11:59 11:59 Intake Total 1937 / 1937 2161 / 2161 1700 / 1700 1480 / 1480 Output Total 650 / 650 1050 / 1050 700 / 850 1175 / 1175 Balance 1287 / 1287 1111 / 1111 1000 / 850 305 / 305 Weight 165 lb 4.8 oz 173 lb 1.6 oz 172 lb 6.4 oz 172 lb 6.388 oz Constitutional Constitutional: no acute distress Progress Note: A&P Assessment and plan (1) Anemia: Status: Acute Assessment and plan: Patient's hemoglobin continues to be stable and actually rising. No need for urgent inpatient EGD at this time. Would benefit from early outpatient gastroenterology assessment given his liver failure and probable gastritis. (2) Alcoholism: Status: Acute (3) Nystagmus: Status: Acute (4) Muscle weakness: Status: Acute (5) DM type 2 (diabetes mellitus, type 2): Status: Acute (6) Adult failure to thrive: Status: Acute (7) Physical deconditioning: Status: Acute
[2023-08-12 08:29] LABS: Anion Gap 4.5 mEq/L (5-15); Blood Urea Nitrogen 14 mg/dl (9-20); Calcium 8.7 mg/dl (8.4-10.2); Carbon Dioxide 23 mmol/L (22.0-30.0); Chloride 110 mmol/L (98-107); Creatinine Clearance Estimated 73 mL/min (50-200); Estimated Glomerular Filt Rate 67 ml/min (>60); GFR (African American) 81 ML/MIN (>60); Glucose 103 mg/dl (74-100); Potassium 5.5 mmoL/L (3.5-5.1); Sodium 132 mmol/L (136-145)
--- NOTE | 2023-08-12 13:30 | P.PN_ITS ---
Subjective *Date: 08/12/23 *Time: 13:30 Interval history: States he does not feel well. Still bothered by eye movements and dizziness. He has not been continued on verapamil nor spironolactone, but BP has been normal. Potassium is elevated at 5.5. Supplementation was discontinued this AM. Medical Exam Vital signs and Labs for Last 24 Hours: Vital Signs Temp Pulse Pulse Resp BP Pulse Ox O2 Del Method 08/12/23 12:57 Room Air 08/12/23 12:00 80 08/12/23 11:15 98.1 F 71 20 126/83 98 Room Air 08/12/23 11:00 Room Air 08/12/23 09:00 Room Air 08/12/23 08:00 Room Air 08/12/23 08:00 85 08/12/23 08:00 98.1 F 82 16 128/82 100 08/12/23 06:52 99 H 08/12/23 06:52 102 H 08/12/23 06:52 94 L Room Air 08/12/23 06:49 Room Air 08/12/23 05:00 Room Air 08/12/23 04:00 77 08/12/23 04:00 98.6 F 82 15 134/92 H 98 Room Air 08/12/23 03:00 Room Air 08/12/23 00:59 Room Air 08/12/23 00:00 73 08/12/23 00:00 97.9 F 76 17 139/85 97 Room Air 08/11/23 23:00 Room Air 08/11/23 21:00 Room Air 08/11/23 20:07 83 08/11/23 20:06 81 08/11/23 20:00 85 99 Room Air 08/11/23 20:00 76 08/11/23 19:59 97.9 F 85 17 143/93 H 99 Room Air 08/11/23 19:00 Room Air 08/11/23 17:00 Room Air 08/11/23 16:00 80 08/11/23 16:00 97.9 F 79 17 135/74 98 08/11/23 15:00 Room Air 08/11/23 14:04 86 08/11/23 14:04 81 08/11/23 14:04 94 L Room Air Intake and Output 08/12/23 08/12/23 08/12/23 03:59 11:59 19:59 Intake Total 1120 / 1720 240 / 1720 Output Total 575 / 1175 300 / 1175 Balance 545 / 545 -60 / 545 Intake: Intake, Oral Amount 120 / 720 240 / 720 Intake, Total IV Amount 1000 / 1000 Mvi, Adult No.1 with Vit K 10 1000 / 1000 ml Thiamine HCl 100 mg Magnesium Sulfate 2 gm In Lactated Ringers 1000ML 1,000 ml @ 125 mls/hr IV DAILY [facility] Rx #:[id number] Output: Output, Urine Amount 575 / 1175 300 / 1175 Other: Number of Unmeasured Voids 0 1 Number of Bowel Movements 1 1 Weight 172 lb 6.388 oz Laboratory Results - last 24 hr 08/12/23 06:50: WBC 6.7, RBC 3.05 L, Hgb 9.6 L, Hct 30.5 L, MCV 99.7 H, MCH 31.4 H, MCHC 31.5 L, RDW 15.6, Plt Count 212, MPV 10.3, Neut % (Auto) 69.2, Lymph % (Auto) 20.5, [place] % (Auto) 6.6, Eos % (Auto) 3.1, Baso % (Auto) 0.5, Neut # (Auto) 4.6, Lymph # (Auto) 1.4, [place] # (Auto) 0.4, Eos # (Auto) 0.2, Baso # (Auto) 0.0, Sodium 132 L, Potassium 5.5 H, Chloride 110 H, Carbon Dioxide 23, Anion Gap 4.5 L, BUN 14, Creatinine 1.10 D, Estimated Creat Clear 73, Estimated GFR 67, Est GFR ( Amer) 81 D, Glucose 103 H, Calcium 8.7 I & O for Labs for Last 24 Hours: Intake & Output 08/10/23 08/11/23 08/12/23 08/13/23 11:59 11:59 11:59 11:59 Intake Total 2161 / 2161 1700 / 1700 1720 / 1720 Output Total 1050 / 1050 700 / 850 1175 / 1175 Balance 1111 / 1111 1000 / 850 545 / 545 Weight 173 lb 1.6 oz 172 lb 6.4 oz 172 lb 6.388 oz Head: Present normocephalic Neck: Present normal inspection Respiratory: Present CTA bilaterally; Absent respiratory distress Cardiac: Present Reg Rate and Rhythm GI: Present soft; Absent tenderness Rectal (male): Present deferred (male): Present deferred Extremities: Absent edema Skin: Present intact Neuro: Present Other (nystagmus), alert and oriented x 3 Assessment and Plan *Assessment and plan (1) Anemia: Status: Acute Category: Medical Code(s): D64.9 - Anemia, unspecified (2) Alcoholism: Status: Acute Category: Medical Code(s): F10.20 - Alcohol dependence, uncomplicated (3) Nystagmus: Status: Acute Category: Medical Code(s): H55.00 - Unspecified nystagmus (4) Muscle weakness: Status: Acute Category: Medical Code(s): M62.81 - Muscle weakness (generalized) (5) Falls: Status: Acute Category: Medical Code(s): R29.6 - Repeated falls (6) DM type 2 (diabetes mellitus, type 2): Status: Acute Category: Medical Code(s): E11.9 - Type 2 diabetes mellitus without complications (7) Acute hyponatremia: Status: Acute Category: Medical Code(s): E87.1 - Hypo-osmolality and hyponatremia (8) Decompensation of cirrhosis of liver: Status: Acute Category: Medical Code(s): K72.90 - Hepatic failure, unspecified without coma; K74.60 - Unspecified cirrhosis of liver Plan Add HCTZ 12.5mg. Currently in sinus rhythm. Nystagmus persists. Add Ferrous sulfate 325 daily. for anemia.
[2023-08-12] MEDS: FERROUS SULFATE 325MG TABLET 325 MG PO (14:05)
[2023-08-12] MEDS: LACTOBACILLUS PROBIOTIC COMB CAPSULE 1 CAP PO (14:05)
[2023-08-12] MEDS: hydroCHLOROthiazide 12.5MG CAPSULE 12.5 MG PO (14:05)
[2023-08-12] MEDS: MULTIVITAMIN TABLET 1 EACH PO (16:17)
[2023-08-12 16:24] LABS: Adenovirus F 40/41, stool Not Detected (NotDetected); Astrovirus Not Detected (NotDetected); Campylobacter Not Detected (NotDetected); Clostridium Difficile A/B, PCR Not Detected (NotDetected); Cryptosporidium Not Detected (NotDetected); Cyclospora Cayetanesis Not Detected (NotDetected); Entamoeba histolytica Not Detected (NotDetected); Enteroaggregative E coli Not Detected (NotDetected); Enteropathogenic E coli Not Detected (NotDetected); Enterotoxigenic E coli Not Detected (NotDetected); Giardia lamblia Not Detected (NotDetected); Norovirus Not Detected (NotDetected); Plesimonas Shigalloides, PCR Not Detected (NotDetected); Rotavirus A Not Detected (NotDetected); Salmonella, PCR Not Detected (NotDetected); Sapovirus Not Detected (NotDetected); Shiga-like toxin E coli Not Detected (NotDetected); Shigella Enterovasive E coli Not Detected (NotDetected); Vibrio Cholerae Not Detected (NotDetected); Vibrio, PCR Not Detected (NotDetected); Yersinia Entercolitica, PCR Not Detected (NotDetected)
--- NOTE | 2023-08-12 17:51 | PC.NURSE ---
Pt A&Ox4. Pt has had multiple incontinent diarrhea episodes this shift, MD notified and stopped antibiotics and ordered a diarrhea panel that was obtained, now awaiting results. Pt has been sleeping on and off most of shift with at bedside. Pt tolerating meals well with no c/o nausea/vomiting. Pt resting in bed now with no complaints at this time.
[2023-08-12] MEDS: NICOTINE 21MG/24HR PATCH 21 MG TD (18:05)
[2023-08-12] MEDS: PRAVASTATIN 40MG TAB 40 MG PO (21:34)
[2023-08-13] VITALS (9 sets, daily range): BP systolic 120–151; BP diastolic 69–96; PULSE 62–100; RESP 16–18; TEMP 36.4–36.9; O2SAT 93–98; BMI 29.4
--- NOTE | 2023-08-13 05:37 | PC.NURSE ---
Patient is alert and oriented x4. Patient has rested well throughout the night and has not had any complaints up to this time. Patient's lungs were clear upon auscultation and bowel sounds were active. On telemetry, patient's heart rate is normal sinus rhythm. Patient continues to have diarrhea; GI panel from previous shift did not detect anything that was tested for. Patient has remained in bed this shift; he states he prefers not to get out of bed due to weakness, balance issues, and his eyes ; nystagmus remains to be seen in patient. Patient's right upper arm has significant purple bruising. Patient has redness on his buttocks. Patient is currently resting in bed at this time. Seizure pads remain in place. No acute changes noted. Waiting for placement at [facility] and future GI evaluation elsewhere.
[2023-08-13] MEDS: ALBUTEROL SULFATE 1.25 MG/3 ML VIAL.NEB IH ×2 (06:06→10:12)
[2023-08-13] MEDS: LEVOTHYROXINE 25MCG (0.025MG) TAB 25 MCG PO (06:34)
[2023-08-13 07:01] LABS: Anion Gap 6.6 mEq/L (5-15); Blood Urea Nitrogen 13 mg/dl (9-20); Calcium 8.7 mg/dl (8.4-10.2); Carbon Dioxide 21 mmol/L (22.0-30.0); Chloride 110 mmol/L (98-107); Creatinine Clearance Estimated 67 mL/min (50-200); Estimated Glomerular Filt Rate 61 ml/min (>60); GFR (African American) 73 ML/MIN (>60); Glucose 99 mg/dl (74-100); Potassium 4.6 mmoL/L (3.5-5.1); Sodium 133 mmol/L (136-145)
--- NOTE | 2023-08-13 07:36 | P.PN_ITS ---
Subjective Narrative: Patient mainly complains of issues with his nystagmus. Taking a diet. No evidence of GI blood loss. Labs pending Exam Data for Last 24 hours Vital signs and Labs for Last 24 Hours: Temp Pulse Resp BP Pulse Ox O2 Del Method 97.9 F 83 16 120/84 93 L Room Air 08/13/23 04:00 08/13/23 06:06 08/13/23 04:00 08/13/23 04:00 08/13/23 06:06 08/13/23 06:40 Laboratory Results - last 24 hr 08/12/23 06:50: Sodium 132 L, Potassium 5.5 H, Chloride 110 H, Carbon Dioxide 23, Anion Gap 4.5 L, BUN 14, Creatinine 1.10 D, Estimated Creat Clear 73, Estimated GFR 67, Est GFR ( Amer) 81 D, Glucose 103 H, Calcium 8.7 08/12/23 14:05: Stl Aeromonas (PCR) Not detected, Stl C. cayetanensis PCR Not detected, Stool Rotavirus (PCR) Not detected, Stl Adenov F 40/41 PCR Not detected, Stool Astrovirus (PCR) Not detected, Stool Campylobacter PCR Not detected, Stl C.difficile Tox PCR Not detected, Stool Cryptosporidium PCR Not detected, Stl E.coli Shiga Tox PCR Not detected, Stool E coli O157 PCR Not detected, Stl Enterotoxigenic E PCR Not detected, Stool EPEC (PCR) Not detected, Stool EAEC (PCR) Not detected, Stl E. histolytica PCR Not detected, Stool Giardia Lamblia PCR Not detected, Stool Salmonella PCR Not detected, Stool Sapovirus (PCR) Not detected, Stl P. shigelloides PCR Not detected, Stl Shigella/EIEC PCR Not detected, St Y.enterocolitica PCR Not detected, Stool Vibrio (PCR) Not detected, Stl Vibrio cholerae PCR Not detected, Stl Norovirus GI/GII PCR Not detected 08/13/23 06:30: Sodium 133 L, Potassium 4.6, Chloride 110 H, Carbon Dioxide 21 L , Anion Gap 6.6, BUN 13, Creatinine 1.20, Estimated Creat Clear 67, Estimated GFR 61, Est GFR ( Amer) 73, Glucose 99, Calcium 8.7 I & O for Last 24 hours: Intake & Output 08/10/23 08/11/23 08/12/2308/24 11:59 11:59 11:59 11:59 Intake Total 2161 / 2161 1700 / 1700 1720 / 1720 820 / 820 Output Total 1050 / 1050 700 / 850 1175 / 1175 600 / 600 Balance 1111 / 1111 1000 / 850 545 / 545 220 / 220 Weight 173 lb 1.6 oz 172 lb 6.4 oz 172 lb 6.388 oz 172 lb 6.388 oz *Routine Abdominal Exam Abdominal: Present soft Progress Note: A&P Assessment and plan (1) Anemia: Status: Acute Assessment and plan: Labs pending. No evidence of any active bleeding. Recommend empiric treatment for gastritis/duodenitis. Likely needs outpatient gastroenterology involvement in the near future. (2) Alcoholism: Status: Acute (3) Nystagmus: Status: Acute (4) Muscle weakness: Status: Acute (5) Falls: Status: Acute (6) DM type 2 (diabetes mellitus, type 2): Status: Acute (7) Acute hyponatremia: Status: Acute (8) Decompensation of cirrhosis of liver: Status: Acute
--- NOTE | 2023-08-13 09:13 | P.PN_ITS ---
Subjective *Date: 08/13/23 *Time: 09:13 Interval history: Mr. Simons is ready for discharge this morning. He is remaining problem that is most difficult is the nystagmus. Clinically he is otherwise stable. I am concerned that he was admitted on verapamil with a history of atrial dysrhyt hmia. He was taken off of this due to his low blood pressure when he came in. He remains off of the verapamil. Other blood pressure affecting medicines have been decreased as well. We have added meclizine 25 mg 3 times daily. He will be given a prescription for oxazepam 10 mg p.o. 3 times daily as needed. He felt that the 15 mg dose was too strong and usually would not take it during his hospitalization. He will need neurologic follow-up due to the nystagmus. Medical Exam Vital signs and Labs for Last 24 Hours: Vital Signs Temp Pulse Pulse Pulse Resp BP Pulse Ox 08/13/23 08:00 90 08/13/23 08:00 97.8 F 96 H 17 124/69 96 08/13/23 06:40 08/13/23 06:06 83 08/13/23 06:06 87 08/13/23 06:06 93 L 08/13/23 05:00 08/13/23 04:00 100 H 08/13/23 04:00 97.9 F 94 H 16 120/84 97 08/13/23 03:00 08/13/23 01:00 08/13/23 00:00 87 08/13/23 00:00 98.4 F 86 16 137/96 H 97 08/12/23 23:00 08/12/23 21:00 08/12/23 20:00 93 H 97 08/12/23 20:00 94 H 08/12/23 20:00 98.2 F 93 H 16 139/87 97 08/12/23 18:43 08/12/23 17:00 08/12/23 16:00 85 08/12/23 16:00 98.1 F 87 17 141/90 H 98 08/12/23 15:00 08/12/23 12:57 08/12/23 12:00 80 08/12/23 11:15 98.1 F 71 20 126/83 98 08/12/23 11:00 O2 Del Method 08/13/23 08:00 08/13/23 08:00 Room Air 08/13/23 06:40 Room Air 08/13/23 06:06 08/13/23 06:06 08/13/23 06:06 Room Air 08/13/23 05:00 Room Air 08/13/23 04:00 08/13/23 04:00 Room Air 08/13/23 03:00 Room Air 08/13/23 01:00 Room Air 08/13/23 00:00 08/13/23 00:00 Room Air 08/12/23 23:00 Room Air 08/12/23 21:00 Room Air 08/12/23 20:00 Room Air 08/12/23 20:00 08/12/23 20:00 Room Air 08/12/23 18:43 Room Air 08/12/23 17:00 Room Air 08/12/23 16:00 08/12/23 16:00 08/12/23 15:00 Room Air 08/12/23 12:57 Room Air 08/12/23 12:00 08/12/23 11:15 Room Air 08/12/23 11:00 Room Air Intake and Output 08/12/23 08/13/23 08/13/23 19:59 03:59 11:59 Intake Total 720 / 820 100 / 820 Output Total 0 / 600 400 / 600 200 / 600 Balance 720 / 220 -300 / 220 -200 / 220 Intake: Intake, Oral Amount 720 / 820 100 / 820 Output: Output, Urine Amount 0 / 600 400 / 600 200 / 600 Other: Number of Unmeasured Voids 0 0 0 Number of Bowel Movements 1 1 Weight 172 lb 6.388 oz Patient Weight 08/13/23 11:59 Weight 172 lb 6.388 oz Laboratory Results - last 24 hr 08/12/23 14:05: Stl Aeromonas (PCR) Not detected, Stl C. cayetanensis PCR Not detected, Stool Rotavirus (PCR) Not detected, Stl Adenov F 40/41 PCR Not detected, Stool Astrovirus (PCR) Not detected, Stool Campylobacter PCR Not detected, Stl C.difficile Tox PCR Not detected, Stool Cryptosporidium PCR Not detected, Stl E.coli Shiga Tox PCR Not detected, Stool E coli O157 PCR Not detected, Stl Enterotoxigenic E PCR Not detected, Stool EPEC (PCR) Not detected, Stool EAEC (PCR) Not detected, Stl E. histolytica PCR Not detected, Stool Giardia Lamblia PCR Not detected, Stool Salmonella PCR Not detected, Stool Sapovirus (PCR) Not detected, Stl P. shigelloides PCR Not detected, Stl Shigella/EIEC PCR Not detected, St Y.enterocolitica PCR Not detected, Stool Vibr io (PCR) Not detected, Stl Vibrio cholerae PCR Not detected, Stl Norovirus GI/GII PCR Not detected 08/13/23 06:30: Sodium 133 L, Potassium 4.6, Chloride 110 H, Carbon Dioxide 21 L , Anion Gap 6.6, BUN 13, Creatinine 1.20, Estimated Creat Clear 67, Estimated GFR 61, Est GFR ( Amer) 73, Glucose 99, Calcium 8.7 I & O for Labs for Last 24 Hours: Intake & Output 08/10/23 08/11/23 08/12/23 08/13/23 11:59 11:59 11:59 11:59 Intake Total 2161 / 2161 1700 / 1700 1720 / 1720 820 / 820 Output Total 1050 / 1050 700 / 850 1175 / 1175 600 / 600 Balance 1111 / 1111 1000 / 850 545 / 545 220 / 220 Weight 173 lb 1.6 oz 172 lb 6.4 oz 172 lb 6.388 oz 172 lb 6.388 oz Head: Present normocephalic Eyes: Present other (Nystagmus persists) ENT: Present mucous membranes moist Neck: Present normal inspection Respiratory: Present decreased breath sounds, CTA bilaterally and rales (Few bibasilar) Cardiac: Present Reg Rate and Rhythm GI: Present soft and distention; Absent tenderness Rectal (male): Present deferred (male): Present deferred Extremities: Absent edema Skin: Present intact Neuro: Present Other (Persistent nystagmus), alert, awake and oriented x 3 Assessment and Plan *Assessment and plan (1) Anemia: Status: Acute Category: Medical Code(s): D64.9 - Anemia, unspecified (2) Sinus arrhythmia: Status: Acute Category: Medical Code(s): I49.8 - Other specified cardiac arrhythmias (3) CAP (community acquired pneumonia): Status: Acute Category: Medical Code(s): J18.9 - Pneumonia, unspecified organism (4) Leukocytosis: Status: Acute Category: Medical Code(s): D72.829 - Elevated white blood cell count, unspecified (5) Hypokalemia: Status: Acute Category: Medical Code(s): E87.6 - Hypokalemia (6) Alcoholism: Status: Acute Category: Medical Code(s): F10.20 - Alcohol dependence, uncomplicated (7) Nystagmus: Status: Acute Category: Medical Code(s): H55.00 - Unspecified nystagmus (8) Muscle weakness: Status: Acute Category: Medical Code(s): M62.81 - Muscle weakness (generalized) (9) Falls: Status: Acute Category: Medical Code(s): R29.6 - Repeated falls (10) DM type 2 (diabetes mellitus, type 2): Status: Acute Category: Medical Code(s): E11.9 - Type 2 diabetes mellitus without complications (11) Hypomagnesemia: Status: Acute Category: Medical Code(s): E83.42 - Hypomagnesemia (12) Adult failure to thrive: Status: Acute Category: Medical Code(s): R62.7 - Adult failure to thrive (13) Physical deconditioning: Status: Acute Category: Medical Code(s): R53.81 - Other malaise (14) Decompensation of cirrhosis of liver: Status: Acute Category: Medical Code(s): K72.90 - Hepatic failure, unspecified without coma; K74.60 - Unspecified cirrhosis of liver (15) Alcohol use: Status: Acute Category: Social Hx Code(s): Z72.89 - Other problems related to lifestyle Plan Discharge to [facility]. Med list reviewed. Changes as mentioned above. Will also add thiamine to his regular daily medications.
[2023-08-13] MEDS: FERROUS SULFATE 325MG TABLET 325 MG PO (09:19)
[2023-08-13] MEDS: FOLIC ACID 1MG TABLET 1 MG PO (09:20)
[2023-08-13] MEDS: LACTOBACILLUS PROBIOTIC COMB CAPSULE 1 CAP PO (09:22)
[2023-08-13] MEDS: MECLIZINE 25MG TABLET 25 MG PO ×2 (09:23→14:03)
[2023-08-13] MEDS: MAGNESIUM OXIDE 400MG TABLET 800 MG PO (09:23)
[2023-08-13] MEDS: hydroCHLOROthiazide 12.5MG CAPSULE 12.5 MG PO (09:29)
[2023-08-13] MEDS: METOPROLOL SUCCINATE XL 25MG TABLET 25 MG PO (09:29)
[2023-08-13] MEDS: PANTOPRAZOLE 40MG TABLET 40 MG PO (10:59)
--- NOTE | 2023-08-13 12:15 | PC.NURSE ---
Called Physicians office again. Spoke with Leandra about Discharge summary. MD was notified and will document after seeing patients.
--- NOTE | 2023-08-13 15:45 | PC.NURSE ---
pt is currently resting. denies pain. awaiting discharge. MD again notified. no further requests at this time. call [facility] within reach.
--- NOTE | 2023-08-13 15:57 | P.DS_ITS ---
General Admission date:: 08/04/23 HPI HPI HPI: Patient is a 68-year-old male who was admitted to the hospital last Saturday on 08/04/2023 with weakness and falling. He has a history of known decompensated alcoholic cirrhosis with ascites. He has previously seen a forensic psychologist. He did apparently have an ER visit on 07/27/2023 at which time he presented with abdominal distention and he was found to have extensive ascites. There was concern for spontaneous bacterial peritonitis and he had diagnostic paracentesis performed. At that time he was briefly admitted to the floor as he had been accepted to [facility] and was transferred there for management. He presented to the emergency room at this facility on 08/04/2023 with progressive weakness and falls. Patient has a long history of alcoholism. He was admitted for inpatient management. Hemoglobin on 07/27/2023 was 10.7. When he presented to the emergency department on 08/04/2023 it was 10.9. On 08/06/2023 it was 9.6. Hemoglobin transiently increased to 10.4 and on 08/08/2023 was 9.2 and today is 9.3. Patient has remained an inpatient this week. He did not undergo cardiology consultation due to possible atrial fibrillation. He did undergo an upper GI series. This revealed markedly prominent gastric and duodenal folds. Surgical consultation was ordered due to these findings. Patient denies any symptoms consistent with hematochezia or melena. . Hospital Course Hospital Course Hospital Course: The patient was seen by Dr. Eng regarding the anemia and was deemed not to have active bleeding. He remained stable during hospitalization with his greatest complaint being the nystagmus. He will need further neurologic evaluation as and outpatient. Arrangements were made for him to be seen by Dr. Ximena Barrett, Neurologist. He was transferred to [facility] in stable condition. There is concern for recurrent atrial dysrrhythmia. His calcium channel james was discontinued during this hospitalization due to low BP's. His rhythm remained stable during hospitalization, but should be monitored as outpatient with possible resumption of the Verapamil. Exam Data for Last 24 hours Vital signs and Labs for Last 24 Hours: Temp Pulse Resp BP Pulse Ox O2 Del Method 97.6 F 78 18 148/82 H 98 Room Air 08/13/23 15:45 08/13/23 15:45 08/13/23 15:45 08/13/23 15:45 08/13/23 15:45 08/13/23 15:45 Laboratory Results - last 24 hr 08/12/23 14:05: Stl Aeromonas (PCR) Not detected, Stl C. cayetanensis PCR Not detected, Stool Rotavirus (PCR) Not detected, Stl Adenov F 40/41 PCR Not detected, Stool Astrovirus (PCR) Not detected, Stool Campylobacter PCR Not detected, Stl C.difficile Tox PCR Not detected, Stool Cryptosporidium PCR Not detected, Stl E.coli Shiga Tox PCR Not detected, Stool E coli O157 PCR Not detected, Stl Enterotoxigenic E PCR Not detected, Stool EPEC (PCR) Not detected, Stool EAEC (PCR) Not detected, Stl E. histolytica PCR Not detected, Stool Giardia Lamblia PCR Not detected, Stool Salmonella PCR Not detected, Stool Sapovirus (PCR) Not detected, Stl P. shigelloides PCR Not detected, Stl Shigella/EIEC PCR Not detected, St Y.enterocolitica PCR Not detected, Stool Vibrio (PCR) Not detected, Stl Vibrio cholerae PCR Not detected, Stl Norovirus GI/GII PCR Not detected 08/13/23 06:30: Sodium 133 L, Potassium 4.6, Chloride 110 H, Carbon Dioxide 21 L , Anion Gap 6.6, BUN 13, Creatinine 1.20, Estimated Creat Clear 67, Estimated GFR 61, Est GFR ( Amer) 73, Glucose 99, Calcium 8.7 I & O for Last 24 hours: Intake & Output 08/11/23 08/12/23 08/13/23 08/14/23 11:59 11:59 11:59 11:59 Intake Total 1700 / 1700 1720 / 1720 820 / 820 0 / 0 Output Total 700 / 850 1175 / 1175 775 / 775 200 / 200 Balance 1000 / 850 545 / 545 45 / 45 -200 / -200 Weight 172 lb 6.4 oz 172 lb 6.388 oz 172 lb 6.388 oz *Routine HEENT Exam Head: Present normocephalic Eye: Present PERRL (nystagmus) ENT: Present mucous membranes moist *Routine Neck Exam Neck: Present supple and full ROM Routine Chest/Breast/Axilla Exam Chest wall: Absent tenderness Axillae: Absent lymphadenopathy *Routine Respiratory Exam Respiratory: Present CTA bilaterally *Routine Cardiovascular Exam Cardiovascular: Present RRR *Routine Abdominal Exam Abdominal: Present soft and distended; Absent tenderness, rebound, guarding or firm *Routine Extremities Exam Extremities: Absent edema *Routine Skin Exam Skin: Present intact; Absent jaundice *Routine Neurological Exam Neurological: Present alert, oriented X3 and CN II-XII intact (nystagmus) Results Data Completed and Pending Labs on day of discharge: Labs from last 24 hours 08/13/23 08/12/23 06:30 14:05 Sodium 133 L Potassium 4.6 Chloride 110 H Carbon Dioxide 21 L Anion Gap 6.6 BUN 13 Creatinine 1.20 Estimated Creat Clear 67 Estimated GFR 61 Est GFR ( Amer) 73 Glucose 99 Calcium 8.7 Stl Aeromonas (PCR) Not detected Stl C. cayetanensis PCR Not detected Stool Rotavirus (PCR) Not detected Stl Adenov F 40/41 PCR Not detected Stool Astrovirus (PCR) Not detected Stool Campylobacter PCR Not detected Stl C.difficile Tox PCR Not detected Stool Cryptosporidium PCR Not detected Stl E.coli Shiga Tox PCR Not detected Stool E coli O157 PCR Not detected Stl Enterotoxigenic E PCR Not detected Stool EPEC (PCR) Not detected Stool EAEC (PCR) Not detected Stl E. histolytica PCR Not detected Stool Giardia Lamblia PCR Not detected Stool Salmonella PCR Not detected Stool Sapovirus (PCR) Not detected Stl P. shigelloides PCR Not detected Stl Shigella/EIEC PCR Not detected St Y.enterocolitica PCR Not detected Stool Vibrio (PCR) Not detected Stl Vibrio cholerae PCR Not detected Stl Norovirus GI/GII PCR Not detected DS: Diagnosis Discharge Diagnosis (1) Anemia: Status: Acute Code(s): D64.9 - Anemia, unspecified (2) Sinus arrhythmia: Status: Acute Code(s): I49.8 - Other specified cardiac arrhythmias (3) CAP (community acquired pneumonia): Status: Acute Code(s): J18.9 - Pneumonia, unspecified organism (4) Leukocytosis: Status: Acute Code(s): D72.829 - Elevated white blood cell count, unspecified (5) Hypokalemia: Status: Acute Code(s): E87.6 - Hypokalemia (6) Alcoholism: Status: Acute Code(s): F10.20 - Alcohol dependence, uncomplicated (7) Nystagmus: Status: Acute Code(s): H55.00 - Unspecified nystagmus (8) Muscle weakness: Status: Acute Code(s): M62.81 - Muscle weakness (generalized) (9) Falls: Status: Acute Code(s): R29.6 - Repeated falls (10) DM type 2 (diabetes mellitus, type 2): Status: Acute Code(s): E11.9 - Type 2 diabetes mellitus without complications (11) Hypomagnesemia: Status: Acute Code(s): E83.42 - Hypomagnesemia (12) Adult failure to thrive: Status: Acute Code(s): R62.7 - Adult failure to thrive (13) Physical deconditioning: Status: Acute Code(s): R53.81 - Other malaise (14) Decompensation of cirrhosis of liver: Status: Acute Code(s): K72.90 - Hepatic failure, unspecified without coma; K74.60 - Unspecified cirrhosis of liver (15) Alcohol use: Status: Acute Code(s): Z72.89 - Other problems related to lifestyle Meds Home Medications and Allergies Home Medications Medication Instructions Recorded Confirmed Type allopurinol 300 mg tablet 300 mg PO DAILY 08/04/23 08/05/23 History lisinopril 20 2 tab PO DAILY 08/04/23 08/05/23 History mg-hydrochlorothiazide 12.5 mg tablet pravastatin 40 mg tablet 40 mg PO HS 08/04/23 08/05/23 History spironolactone 25 mg tablet 25 mg PO DAILY 08/04/23 08/05/23 History cefdinir 300 mg capsule 300 mg PO BID #20 caps 08/13/23 Rx ferrous sulfate 325 mg (65 mg 325 mg PO DAILY #30 tabs 08/13/23 Rx iron) tablet folic acid 1 mg tablet 1 mg PO DAILY #30 tabs 08/13/23 Rx levothyroxine 25 mcg tablet 25 mcg PO DAILY #30 tabs 08/13/23 Rx (Synthroid) magnesium oxide 400 mg (241.3 mg 800 mg (2 x 400 mg (241.3 mg 08/13/23 Rx magnesium) tablet magnesium)) PO DAILY #60 tabs meclizine 25 mg tablet 25 mg PO TID #90 tabs 08/13/23 Rx nicotine 21 mg/24 hr daily 21 mg transdermal DAILYP PRN 08/13/23 Rx transdermal patch Nicotine Cravings #28 ea oxazepam 10 mg capsule 10 mg PO TID PRN alcohol 08/13/23 Rx withdrawal #90 caps oxazepam 10 mg capsule 10 mg PO TID PRN anxiety #90 caps 08/13/23 Rx thiamine HCl (vitamin B1) 500 mg 500 mg PO DAILY #30 tabs 08/13/23 Rx tablet New Prescriptions to Start Prescriptions: cefdinir Kristine Barrera ferrous sulfate Kristine Barrera folic acid Kristine Barrera levothyroxine [Synthroid] Kristine Barrera magnesium oxide Kristine Barrera meclizine Kristine Barrera nicotine Kristine Barrera oxazepam Kristine Barrera oxazepam Kristine Barrera thiamine HCl (vitamin B1) Kristine Barrera Allergies Allergy/AdvReac Type Severity Reaction Status Date / Time No Known Allergies Allergy Verified 06/13/19 20:46 Discharge Plan Disposition Patient Disposition: Xfer SNF Condition: Good Discharge Order Discharge Orders: Discharge Order (Routine); Ordered 08/13/23 Ordered By: Kristine Barrera Follow up Plan Follow up with: Ximena aBrrett MD [Staff Physician] - 11/20/23 9:30 am Prescriptions/Medication Reconciliation: New meclizine 25 mg Tablet 25 mg PO TID Qty: 90 0RF nicotine 21 mg/24 hr Patch 24 Hour 21 mg transdermal DAILYP PRN (Reason: Nicotine Cravings) Qty: 28 4RF cefdinir 300 mg capsule 300 mg PO BID Qty: 20 0RF ferrous sulfate 325 mg (65 mg iron) Tablet 325 mg PO DAILY Qty: 30 4RF folic acid 1 mg Tablet 1 mg PO DAILY Qty: 30 4RF levothyroxine [Synthroid] 25 mcg Tablet 25 mcg PO DAILY Qty: 30 0RF magnesium oxide 400 mg (241.3 mg magnesium) Tablet 800 mg PO DAILY Qty: 60 4RF oxazepam 10 mg capsule 10 mg PO TID PRN (Reason: anxiety) Qty: 90 0RF thiamine HCl (vitamin B1) 500 mg tablet 500 mg PO DAILY Qty: 30 4RF oxazepam 10 mg capsule 10 mg PO TID PRN (Reason: alcohol withdrawal) Qty: 90 0RF Continued lisinopril-hydrochlorothiazide 20-12.5 mg tablet 2 tab PO DAILY pravastatin 40 mg tablet 40 mg PO HS spironolactone 25 mg tablet 25 mg PO DAILY allopurinol 300 mg tablet 300 mg PO DAILY Discontinued furosemide 20 mg tablet 20 mg PO DAILY verapamil 240 mg capsule,ext rel. pellets 24 hr 240 mg PO DAILY metformin 750 mg tablet extended release 24 hr 750 mg PO TID Problem Reconciliation Problems Reviewed?: Yes Patient Discharge Instructions ACTIVITY: Up with assistance DIET: diabetic diet Patient Instructions: DI for Pneumonia -- Adult, DI for Atrial Fibrillation, DI for Failure to Thrive Providers Primary Care Provider: Jairo Singleton Admit Provider: Jairo Singleton Attending Provider: Jairo Singleton
--- NOTE | 2023-08-13 16:56 | PC.NURSE ---
report called to [facility].
--- NOTE | 2023-08-13 21:17 | PC.NURSE ---
Patient has left with EMT at 21:16.
== END 2023-08-13 21:16 | DRG 682 ==
LOC: ER 17:10 → 2ND 17:33
PROVIDERS: Emergency Medicine; Family Medicine; Physician Assistant; Admitting Provider Family Medicine; Emergency Provider Emergency Medicine; PCP Family Medicine; Visit Provider Family Medicine
DX: J18.9 Pneumonia, unspecified organism (principal); S22.089A Unspecified fracture of T11-T12 vertebra, initial encounter for closed fracture; N17.9 Acute kidney failure, unspecified; E87.1 Hypo-osmolality and hyponatremia; R62.7 Adult failure to thrive; R29.6 Repeated falls; M62.81 Muscle weakness (generalized); E83.42 Hypomagnesemia; H55.00 Unspecified nystagmus; R63.4 Abnormal weight loss; R63.0 Anorexia; E11.9 Type 2 diabetes mellitus without complications; F10.20 Alcohol dependence, uncomplicated; M10.9 Gout, unspecified; F17.210 Nicotine dependence, cigarettes, uncomplicated; E78.5 Hyperlipidemia, unspecified; D64.9 Anemia, unspecified; K72.90 Hepatic failure, unspecified without coma; E87.6 Hypokalemia
CPT/HCPCS: 36415; 70450; 70496; 70498; 71045; 71046; 72125; 72128; 72131; 72170; 74221; 74246; 80048; 80053; 80320; 81001; 82180; 82306; 82607; 82746; 83735; 84207; 84425; 84443; 84446; 84466; 84590; 84630; 85007; 85025; 85610; 85730; 87506; 93005; 94640; 97110; 97163; 97166; 97530; 99285; J0456; J0696; J2270; J2405; J3411; J3475; J7030; J7120; Q9967

== ENCOUNTER 2023-09-04 09:52 | Outpatient (CLI) | payer MEDICARE, SELFPAY ==
--- NOTE | 2023-09-04 10:00 | XR_ITS ---
FINAL REPORT TECHNIQUE: Chest PA & Lateral CLINICAL HISTORY: COUGH, smoker x 45 yrs COMPARISON: 08/07/2023 FINDINGS: 2 views of the chest were performed. The heart size is normal. The mediastinum is within normal limits. There is no acute cardiopulmonary process. The lungs are underinflated. There are no pleural effusions. There is no pneumothorax. The bony thorax appears intact. IMPRESSION: No acute cardiopulmonary process. Reviewed, Interpreted and Dictated by Issa Hawley MD Transcribed by Pari Sanchez Authenticated and [facility]
== END 2023-09-04 23:59 | disposition home or self-care (01) ==
LOC: RAD 09:53
PROVIDERS: PCP Family Medicine; Visit Provider Family Medicine
DX: R05.9 Cough, unspecified (principal)
CPT/HCPCS: 71046

== ENCOUNTER 2023-11-21 09:49 | Outpatient (CLI) | payer MEDICARE, SELFPAY ==
--- NOTE | 2023-11-21 09:50 | US_ITS ---
FINAL REPORT CLINICAL HISTORY: .9750 ML-- ORI PERRY--- LT SIDE FINDINGS: ULTRASOUND-GUIDED PARACENTESIS HISTORY: Ascites ATTENDING PHYSICIAN: Dr. Hawley PHYSICIAN ONCOLOGY SPECIALIST: Ori Rosas PA-C FINDINGS: After informed consent was obtained and timeout procedure performed, fluid was localized in the left lower quadrant under ultrasound guidance and marked on the skin appropriately. The patient was then prepped and draped in the usual sterile fashion and the skin was anesthetized with 1% lidocaine. An ultrasound guided paracentesis was then performed using a Turkel needle. Approximately 9.7 liters of clear yellow fluid was removed. Sample of the fluid was sent to lab. The patient tolerated the procedure well and there were no immediate complications. IMPRESSION: Ultrasound guided left lower quadrant paracentesis as discussed above. Films reviewed, interpreted and dictated by Dr. Hawley. Transcribed by Ori Rosas PA-C. Reviewed, Interpreted and Dictated by Issa Hawley MD Transcribed by ORLANDO Phillip Authenticated and [facility]
[2023-11-21 11:23] VITALS: BMI 28.8
[2023-11-21 11:53] LABS: Creatinine Clearance Estimated 65 mL/min (50-200); Estimated Glomerular Filt Rate 61 ml/min (>60); GFR (African American) 73 ML/MIN (>60)
[2023-11-21 12:20] VITALS: BP 136/81; PULSE 95; RESP 16; TEMP 36.6; O2SAT 100
[2023-11-21] MEDS: ALBUMIN HUMAN 50 GM/200 ML BAG IV (12:20)
[2023-11-21] MEDS: SODIUM CHLORIDE 0.9% 50ML BAG 50 ML IV (12:20)
[2023-11-21 12:35] LABS: Basophils % 0.7 % (0.1-2.0); Eosinophils # 0.2 K/mm3 (0.0-0.4); Eosinophils % 2.9 % (0.1-12.0); Hematocrit 32.5 % (42.0-52.0); Hemoglobin 10.2 g/dL (14.1-18.0); Lymphocytes # 1.3 K/mm3 (0.7-4.5); Lymphocytes % 23.4 % (10-50); Mean Corpuscular HGB Conc 31.3 g/dL (31.8-35.4); Mean Corpuscular Hemoglobin 30.7 pg (27.0-31.2); Mean Platelet Volume 9.3 fl (7.4-10.4); Monocytes # 0.4 K/mm3 (0.1-1.0); Monocytes % 7.1 % (1.7-9.3); Neutrophils # 3.6 K/mm3 (1.8-7.8); Neutrophils % 65.9 % (37.0-80.0); Platelet Count 220 K/mm3 (142-424); Red Blood Count 3.32 M/mm3 (4.60-6.20); Red Cell Distribution Width 15.5 % (11.5-17.5); White Blood Count 5.5 K/mm3 (4.8-10.8)
[2023-11-21 14:20] VITALS: BP 121/73; PULSE 93; RESP 16; TEMP 37.1; O2SAT 100
[2023-11-23 12:35] LABS: Albumin, Body Fluid 1.8 g/dL (Not Estab.)
== END 2023-11-21 14:20 | disposition home or self-care (01) ==
LOC: RAD 11:31 → INF 11:49
PROVIDERS: Nurse Practitioner Family; PCP Family Medicine; Visit Provider Internal Medicine Gastroenterology
DX: K70.30 Alcoholic cirrhosis of liver without ascites (principal); R18.8 Other ascites; K72.90 Hepatic failure, unspecified without coma
CPT/HCPCS: 49083; 82042; 82565; 85025; 87070; 87205; 96365; 96366; P9047

== ENCOUNTER 2023-12-04 14:15 | Outpatient (CLI) | payer MEDICARE, SELFPAY ==
--- NOTE | 2023-12-04 14:15 | MR_ITS ---
PROCEDURE INFORMATION: Exam: MR Head Without Contrast Exam date and time: 12/04/2023 2:31 PM Age: 68 years old Clinical indication: Visual disturbance; Additional info: Nystagmus, double vision, eval for stroke TECHNIQUE: Imaging protocol: Magnetic resonance imaging of the head without contrast. COMPARISON: CT ANGIO HEAD 08/04/2023 3:42 PM FINDINGS: Brain: There is mild age related atrophy. No acute infarct. No hemorrhage. Multiple T2 and FLAIR hyperintense lesions are noted scattered throughout the white matter of cerebral hemispheres most consistent with chronic small vessel disease. No edema. Cerebral ventricles: Normal. No ventriculomegaly. Bones: Unremarkable. Paranasal sinuses: Small mucous retention cysts within the maxillary sinuses.. No acute sinusitis. Mastoid air cells: Normal as visualized. No mastoid effusion. Orbital cavities: Unremarkable. Soft tissues: Unremarkable. Other findings: 6 mm Tornwaldt cyst is noted. IMPRESSION: No acute findings.
== END 2023-12-04 23:59 | disposition home or self-care (01) ==
LOC: RAD 14:15
PROVIDERS: PCP Family Medicine; Visit Provider Specialist
DX: H55.00 Unspecified nystagmus (principal); M62.81 Muscle weakness (generalized); R29.6 Repeated falls; Z86.69 Personal history of other diseases of the nervous system and sense organs
CPT/HCPCS: 70551

== ENCOUNTER 2023-12-12 09:17 | Outpatient (CLI) | payer MEDICARE, SELFPAY ==
--- NOTE | 2023-12-12 09:17 | US_ITS ---
FINAL REPORT CLINICAL HISTORY: CIRRHOSIS FINDINGS: The pancreas is obscured. There is coarse hepatic echotexture with nodular contour consistent with cirrhosis. The portal vein measures 11 mm. There is normal directional flow. The hepatic vein is patent. Note is made of cholesterolosis of the gallbladder wall. Gallbladder wall is thickened measuring 6 mm, nonspecific. Common duct measures 4 mm. There are 2 cysts in the right kidney, largest measures 43 mm. Moderate ascites is identified. IMPRESSION: Cirrhosis. Gallbladder wall thickening. Right renal cysts. Moderate ascites. Reviewed, Interpreted and Dictated by Sav Barnard III, MD Transcribed by Allyson Benjamin Authenticated and [facility]
== END 2023-12-12 23:59 | disposition home or self-care (01) ==
LOC: RAD 09:17
PROVIDERS: PCP Family Medicine; Visit Provider Nurse Practitioner Family
DX: K70.30 Alcoholic cirrhosis of liver without ascites (principal); R18.8 Other ascites; K72.90 Hepatic failure, unspecified without coma
CPT/HCPCS: 76705

== ENCOUNTER 2024-01-15 12:16 | Outpatient (CLI) | payer MEDICARE, SELFPAY ==
[2024-01-15 12:55] LABS: Ammonia < 9 umol/L (9-30)
[2024-01-15 12:56] LABS: INR 0.99 (0.9-1.1); Prothrombin Time 11.1 seconds (10.1-12.5)
[2024-01-15 12:57] LABS: Basophils # 0.1 K/mm3 (0-0.2); Eosinophils # 0.2 K/mm3 (0.0-0.4); Eosinophils % 3.5 % (0.1-12.0); Hematocrit 37.8 % (42.0-52.0); Hemoglobin 11.9 g/dL (14.1-18.0); Lymphocytes # 1.8 K/mm3 (0.7-4.5); Lymphocytes % 25.8 % (10-50); Mean Corpuscular HGB Conc 31.5 g/dL (31.8-35.4); Mean Corpuscular Hemoglobin 29.5 pg (27.0-31.2); Mean Corpuscular Volume 93.6 fl (80-94); Mean Platelet Volume 8.6 fl (7.4-10.4); Monocytes # 0.4 K/mm3 (0.1-1.0); Monocytes % 5.1 % (1.7-9.3); Neutrophils # 4.5 K/mm3 (1.8-7.8); Neutrophils % 64.6 % (37.0-80.0); Platelet Count 262 K/mm3 (142-424); Red Blood Count 4.04 M/mm3 (4.60-6.20); Red Cell Distribution Width 16.4 % (11.5-17.5)
[2024-01-15 13:08] LABS: Albumin Level 3.3 g/dl (3.5-5.0); Chloride 111 mmol/L (98-107); Potassium 4.6 mmoL/L (3.5-5.1); Sodium 138 mmol/L (136-145)
[2024-01-15 13:10] LABS: Blood Urea Nitrogen 23 mg/dl (9-20); Estimated Glomerular Filt Rate 67 ml/min (>60); GFR (African American) 81 ML/MIN (>60)
[2024-01-15 13:11] LABS: Alanine Aminotransferase 23 U/L (12-78); Albumin/Globulin Ratio 1.3 (1.1-1.8); Alkaline Phosphatase 120 U/L (38-126); Anion Gap 10.6 mEq/L (5-15); Aspartate Amino Transferase 25 U/L (17-59); Bilirubin,Total 0.3 mg/dl (0.2-1.3); Calcium 9.2 mg/dl (8.4-10.2); Carbon Dioxide 21 mmol/L (22.0-30.0); Globulin 2.5 g/dL (1.3-3.2); Glucose 123 mg/dl (74-100); Iron 52 ug/dL (49-181); Total Protein,Serum 5.8 g/dl (6.3-8.2)
[2024-01-15 13:45] LABS: Ferritin 131 ng/ml (17.9-464)
[2024-01-15 13:47] LABS: Total Iron Binding Capacity 341 ug/dL (261-462)
[2024-01-16 12:29] LABS: AFP, Tumor Marker 2.4 ng/mL (0.0-8.4)
== END 2024-01-15 23:59 | disposition home or self-care (01) ==
LOC: LAB 12:27
PROVIDERS: PCP Family Medicine; Visit Provider Nurse Practitioner Family
DX: K70.31 Alcoholic cirrhosis of liver with ascites (principal)
CPT/HCPCS: 36415; 80053; 82105; 82140; 82728; 83540; 83550; 85025; 85610

== ENCOUNTER 2024-05-27 15:58 | Emergency (ER) | payer MEDICARE, SELFPAY ==
[2024-05-27] VITALS (12 sets, daily range): BP systolic 182–205; BP diastolic 103–121; PULSE 82–96; RESP 18–22; TEMP 36.9–37.1; O2SAT 95–98; BMI 25.2
--- OUTSIDE RECORDS SUMMARY | 2024-05-27 16:23 | XMS_ITS ---
Author Organization Unknown TREATMENT PLAN [facility] Start Date Provider Encounter for Check-up [id number] [facility]
--- OUTSIDE RECORDS SUMMARY | 2024-05-27 16:23 | XMS_ITS | Data Portability ---
Author Organization [facility] [place] [facility] ADMIN Address [address] [place] [id number] Assessment Encounter Date Assessment Date Assessment LastModified by Organization Details LastModified Time 06/27/2023 06/27/2023 68-year-old male referred to establish care for recently diagnosed cirrhosis: 1) Cirrhosis: Etiology is likely chronic alcohol abuse. Continued alcohol cessation was strongly encouraged. He has reduced his drinking currently to 1 oz of bourbon daily. -Concerns for recent decompensation with LE edema and ascites. -Obtain labs per below to formulate a MELD score. Discussed referral for liver transplant evaluation with MELD 15 or greater. He was educated that strict sobriety for a period of at least 6 months would likely be required if transplant were ever indicated. -ASCITES: Present on recent ultrasound and on exam today. Continue Spironolactone 50 mg p.o. daily. If his renal function appears stable, we may consider resuming low dose lasix as well. 2,000 mg daily sodium resctricted diet was counseled. -HE: No concerns at this time. -ESOPHAGEAL VARICES: I have strongly recommended we schedule EGD for screening purposes. He defers for now but will consider this. Will discuss again at f/u. -HCC SCREENING: Recent abdominal US with no concerning liver lesion. WIll repeat his US q6 months. Check an AFP now. -Avoid NSAIDS. Limit acetaminophen to not exceed 2,000 mg in 24 hours. 2) History of colon polyps: Last colonoscopy was in 2008. I have recommended we schedule repeat colonoscopy. He defers. He was informed that if liver transplant is ever indicated, colonoscopy will be required. 3) Diarrhea: Discussed endoscopy. He defers. Patient plans to have his labs drawn at Dr. Singleton's office. I have faxed the order both there and to the [facility] lab. He will follow-up by phone in 1 week to discuss the findings, potentially plan to change his diuretics at that time. Readdress need for EGD at that time as well. Not available 06/27/2023 13:14:50 07/12/2023 07/12/2023 68-year-old male , referred to establish care for recently diagnosed cirrhosis: 1) Cirrhosis: Etiology is likely chronic alcohol abuse. Continued alcohol cessation was strongly encouraged. He has reduced his drinking currently to 1 oz of bourbon daily. MELD 3.0 = 12 on 07/04/23. -He has recent onset LE edema and ascites. 2 g daily sodium restriction was counseled. Continue Spironolactone 50 mg p.o. daily. I will add low dose lasix, 20 mg once daily. Will have him repeat his renal function labs in 2 weeks at [facility]. -Prevously discussed referral for liver transplant evaluation with MELD 15 or greater. He was educated that strict sobriety for a period of at least 6 months would likely be required if transplant were ever indicated. -HE: No concerns at this time. -ESOPHAGEAL VARICES: I have strongly recommended we schedule EGD for screening purposes. He continues to defer. He is aware of the potential risk for life-threatening GI bleeding with untreated EV. Will discuss again at f/u. Could consider prophylactic non-selective beta james therapy, however he was mildly hypotensive in the office recently. -HCC SCREENING: Recent abdominal US with no concerning liver lesion. WIll repeat his US q6 months. AFP recently WNL. -Avoid NSAIDS. Limit acetaminophen to not exceed 2,000 mg in 24 hours. 2) History of colon polyps: Last colonoscopy was in 2008. I have recommended we schedule repeat colonoscopy. He defers. He was informed that if liver transplant is ever indicated, surveillance colonoscopy would likely be required. 3) Diarrhea: Discussed endoscopy. He defers. 4) Macrocytic anemia: Defers endoscopy. Will obtain iron study, folate, B12, repeat CBC with upcoming labs in 2 weeks. f/u 3 weeks [email or web address] Not available 07/12/2023 11:29:52 08/02/2023 08/02/2023 68-year-old male with recently diagnosed cirrhosis: 1) Cirrhosis: MELD 3.0 = 11 on 07/28/23. Etiology is likely chronic alcohol abuse. Continued alcohol cessation was strongly encouraged. He previously stated he has reduced his drinking currently to 1 oz of bourbon daily. -He has recent onset LE edema and ascites. 2 g daily sodium restriction was counseled. Diuretic dose has been limited to spironolactone 25 mg daily and lasix 10 mg daily due to recent EWA on slightly higher doses. -Prevously discussed referral for liver transplant evaluation with MELD 15 or greater. He was educated that strict sobriety for a period of at least 6 months would likely be required if transplant were ever indicated. -HE: No concerns at this time. -ESOPHAGEAL VARICES : He previously declined EGD but would not like to proceed with it due to his recent appetite issues. -HCC SCREENING: Recent abdominal US with no concerning liver lesion. WIll repeat his US q6 months. AFP recently WNL. -Avoid NSAIDS. Limit acetaminophen to not exceed 2,000 mg in 24 hours. 2) History of colon polyps: Last colonoscopy was in 2008. I have recommended we schedule repeat colonoscopy. He defers. He was informed that if liver transplant is ever indicated, surveillance colonoscopy would likely be required. 3) Diarrhea: Discussed endoscopy. No complaints today. Consider stools studies with recurrent symptoms. 4) Macrocytic anemia: Not iron deficient. Declines colonoscopy. May be related to alcohol abuse. 5 ) Poor appetite: Patient would like to proceed with EGD [email or web address] Not available 08/02/2023 23:05:54 Plan of Treatment Reminders Order Date Submit Date Provider Last Modified By Organization Details Last Modified Time Details Appointments None record ed. Lab CBC [address] (Lab), [address], [facility], [id number], 4 13:32:50 BMP, serum or plasma [address] (Lab), [address], [facility], [address], 4 13:32:51 iron + TIBC + ferrit in, serum [address] (Lab), [address], [facility], [address], 4 13:32:51 vitami n B12 + folate , serum or blood 2023 024 [email or web address] [facility] (Lab), [address] [place] [address], [facility], [address], 4 13:32:51 afp (alpha -fetop rotein ) tumor marker , serum or plasma 2023 024 [email or web address] [facility], [address] [place] [address] [address], [facility], [address], 4 15:55:51 CMP, serum or plasma 2023 024 [email or web address] [facility], [address] [place] [address] E, [facility], [address], 4 15:56:34 CBC 2023 024 [email or web address] [facility], [address] [place] [address] [address], [facility], [address], 4 15:56:40 INR, blood 2023 024 [email or web address] [facility], [address] [place] [address] [address], [facility], [address], 4 15:56:52 hepati tis panel (A+B+C ), acute, serum 2023 024 [email or web address] [facility], [address] [place] [address] [address], [facility], [address], 4 15:57:05 iron + TIBC + ferrit in, serum 2023 024 [facility], [address] [place] [address] [address], [facility], [address], 4 15:54:59 Referral None record ed. Procedures None record ed. Surgeries None record ed. Imaging None record ed. Medication Orders Lasix 20 mg tablet 2023 024 [facility], [address], [place], [address], 10:55:52 Patient TargetsNo targets recorded. Patient InstructionsNo instructions recorded. Reason for Referral None Reported. Results Created Date Observation Date Name Description Value Unit Range Abnormal Flag Note LastModifiedBy Organization Detail LastModifiedTime Result Notes None recorded. Problems Name Problem SNOMED Code Status Onset Date Resolution Date Notes Provider Name and Address Organization Details Recorded Time Cirrhosis of liver Active [address], [place], [address] , [place] [facility] [place] [facility] [place] 4 12:31:36 Ascites due to alcoholic cirrhosis 2734329351181 104 Active [address], [place], [address] , [place] [facility] [place] [facility] [place] 4 12:41:29 Peripheral edema 219961368 Active [address], [place], [address] , [place] [facility] [place] [facility] [place] 4 12:41:35 Diarrhea 79729321 Active [address], [place], [address] , [place] - [facility] & [place] 4 12:41:47 Decrease in appetite 93850389 Active [address], [place], [address] , [place] - [facility] & [place] 4 12:41:52 Macrocytic anemia 47623693 Active [address], [place], [address] , [place] - [facility] & [place] 4 11:16:53 Problem Notes None recorded. Medical Equipment None Reported. Medications Name Sig Start Date Stop Date Status Note LastModified by Organization Details LastModified Time furosemide 40 mg tablet TAKE ONE TABLET BY MOUTH EVERY DAY active Not Available Not Available No t Available lisinopril 20 mg-hydrochloroth iazide 12.5 mg tablet active Not Available Not Available Not Available pravastatin 40 mg tablet Take 1 tablet every day by oral route. active Not Available Not Available No t Available spironolactone 25 mg tablet TAKE ONE TABLET BY MOUTH EVERY DAY active Not Available Not Available No t Available verapamil ER (SR) 240 mg tablet,extended release Take 1 tablet every day by oral route. active Not Available Not Available No t Available allopurinol 300 mg tablet Take 1 tablet every day by oral route. active Not Available Not Available No t Available furosemide 20 mg tablet Take 1 tablet every day by oral route for 90 days, for leg swellin g. active Not Available Not Available No t Available lisinopril 2.5 mg tablet Take 1 tablet every day by oral route. active Not Available Not Available No t Available spironolactone 50 mg tablet Take 1 tablet every day by oral route. active Not Available Not Available No t Available verapamil ER 240 mg 24 hr capsule,extended release active Not Available Not Available Not Available metformin ER 750 mg tablet,extended release 24 hr active Not Available Not Availabl e Not Available metformin active Not Available Not Nayely ilable Not Available Vitals Date Recorded Body weight Body mass index (BMI) Body height Heart rate Heart rate Oxygen saturation Oxygen saturation in Arterial blood by Pulse oximetry Body temperature Systolic blood pressure Diastolic blood pressure Provider Name and Address Organization Details Last Updated DateTime 4 [address]255.4 1 g 30.3 kg/m2 162.56 cm 98 /min 94 /min 98 % 98 % 97.9 [degF] 106 mm[Hg] 70 mm[Hg] [facility] & [place] 4 11:00:08 Social History None recorded. Functional Status None recorded. Mental Status None recorded. Family History Nothing Reported. Medical History No medical history recorded. Past Encounters Encounter ID Performer Location Encounter Start Date Encounter Closed Date Diagnosis/Indication Diagnosis SNOMED-CT Code Diagnosis ICD10 Code Diagnosis Note [id number] Profirio Lozano PA-C [facility] [address] [place] [id number] 06/27/2023 10:42:56 06/27/2023 12:14:16 Cirrhosis of liver 92263809 K74.60 Ascites du e to alcoholic cirrhosis 7711197946 847379 K70.31 Peripheral edema 9492842 00 R60.9 Diarrhea 89398147 R19.7 Decrease in appetite 643 [address]3435 R63.0 [id number] Porfirio Lozano PA-C [facility] [address] [address] 07/12/2023 10:47:15 07/12/2023 10:56:46 Cirrhosis of liver 07836855 K74.60 Ascites du e to alcoholic cirrhosis 7315768176 281622 K70.31 Peripheral edema 8550629 00 R60.9 Diarrhea 56633921 R19.7 Decrease in appetite 643 [address]3769 R63.0 Macrocytic anemia 303489 05 D53.9 [id number] Porfirio Lozano [facility] [address] [address] 08/02/2023 11:14:11 08/02/2023 13:02:16 Cirrhosis of liver 01342679 K74.60 Ascites du e to alcoholic cirrhosis 3478909571 399668 K70.31 Peripheral edema 5468081 00 R60.9 Diarrhea 19538055 R19.7 Decrease in appetite 643 56901 R63.0 Macrocytic anemia 923038 05 D53.9 Health Concerns Section Related Observation LastModified by Organization Detai ls LastModified Time None Recorded Concern Status LastModified by Organization Details LastModified Time None Recorded Advance Directives Directive None Recorded Payers Encounter Date Sequence Insurance Name Policy Number Policy Matthews Covered Member ID Matthews Member ID Guarantor Name 06/27/2023 1 [employer] (MEDICARE REPLACEMENT/A DVANTAGE - HMO) Reynaldo Simons [id number] Reynaldo Simons 07/12/2023 1 [employer] (MEDICARE REPLACEMENT/A DVANTAGE - HMO) Reynaldo Simons [id number] Reynaldo Simons 08/02/2023 1 [employer] (MEDICARE REPLACEMENT/A DVANTAGE - HMO) Reynaldo Simons [id number] Reynaldo Simons Notes Date Note Type Note Provider Name and Address Organization Details Recorded Time 06/27/2023 text/html Mr. Simons is a pleasant 68-year-old male with PMH of diabetes mellitus, hypertension, hyperlipidemia, colon polyps, renal insufficiency, and chronic alcohol use disorder who was referred by Dr. Singleton to establish care for recently diagnosed cirrhosis. He has been having issues with lower extremity swelling and abdominal distension since February. He underwent abdominal ultrasound recently that was suggestive of cirrhosis and ascites. He has a long history of drinking around 8 oz of bourbon daily. He has recently cut back and is drinking about 1 oz daily. He intends to stop drinking completely. His PCP had previously prescribed lasix 40 mg daily for leg swelling. This was stopped, presumably due to elevated creatinine of 1.58. He is currently taking spironolactone 50 mg daily. He felt his swelling was best controlled while taking both the lasix and Aldactone together for a few days. Porfirio Lozano PA-C [address] [facility], [place], [address], [facility] - [place] - [place] & [place] 06/27/2023 13:15:19 07/12/2023 text/html PREVIOUS ( 4): Mr. Simons is a pleasant 68-year-old male with PMH of diabetes mellitus, hypertension, hyperlipidemia, colon polyps, renal insufficiency, and chronic alcohol use disorder who was referred by Dr. Singleton to establish care for recently diagnosed cirrhosis. He has been having issues with lower extremity swelling and abdominal distension since February. He underwent abdominal ultrasound recently that was suggestive of cirrhosis and ascites. He has a long history of drinking around 8 oz of bourbon daily. He has recently cut back and is drinking about 1 oz daily. He intends to stop drinking completely. His PCP had previously prescribed lasix 40 mg daily for leg swelling. This was stopped, presumably due to elevated creatinine of 1.58. He is currently taking spironolactone 50 mg daily. He felt his swelling was best controlled while taking both the lasix and Aldactone together for a few days. CURRENT (07/12/23): Mr. Simons presents via telephonic encounter today for follow-up regarding alcoholic cirrhosis. He is currently drinking 1 oz of bourbon daily. Recent labs were obtained and show a mild macrocytic anemia with hgb stable at 10.9. He denies evidence of GI blood loss. Labs also showed normal hepatic function, normal platelet count, normal INR, and creatinine improved at 1.4. He continues to complain of bothersome lower extremity edema. He denies any new issues at this time. I spent a total of 12 minutes during this real-time clinical encounter that was initiated by the patient which started at 1045 and ended at 1057. Consent was obtained to engage in telephonic service. Greater than 50% of the time spent was devoted to counseling and coordinating care including review of patient record, patient lab data and studies as well as discussing diagnostic evaluation and workup, planned therapeutic intervention and further disposition of care Patient requested telephonic encounter due to difficulty making it in to the office today due to living distance from the office and limited capability for televideo conferencing. The patient and listed provider were the only participants on the call. Porfirio Lozano PA-C [address] [facility], [place], [address], [facility] - [facility] - [place] & [place] 07/26/2023 11:31:30 08/02/2023 text/html PREVIOUS ( 4): Mr. Simons is a pleasant 68-year-old male with PMH of diabetes mellitus, hypertension, hyperlipidemia, colon polyps, renal insufficiency, and chronic alcohol use disorder who was referred by Dr. Singleton to establish care for recently diagnosed cirrhosis. He has been having issues with lower extremity swelling and abdominal distension since February. He underwent abdominal ultrasound recently that was suggestive of cirrhosis and ascites. He has a long history of drinking around 8 oz of bourbon daily. He has recently cut back and is drinking about 1 oz daily. He intends to stop drinking completely. His PCP had previously prescribed lasix 40 mg daily for leg swelling. This was stopped, presumably due to elevated creatinine of 1.58. He is currently taking spironolactone 50 mg daily. He felt his swelling was best controlled while taking both the lasix and Aldactone together for a few days. PREVIOUS (07/12/23): Mr. Simons presents via telephonic encounter today for follow-up regarding alcoholic cirrhosis. He is currently drinking 1 oz of bourbon daily. Recent labs were obtained and show a mild macrocytic anemia with hgb stable at 10.9. He denies evidence of GI blood loss. Labs also showed normal hepatic function, normal platelet count, normal INR, and creatinine improved at 1.4. He continues to complain of bothersome lower extremity edema. He denies any new issues at this time. CURRENT (08/02/23): Mr. Simons presents via telephonic encounter today for follow-up. He was admitted recently at [facility] and was transferred to [facility] due to acute kidney injury. His diuretic doses were lowered at discharge to lasix 10 mg daily and spironolactone 25 mg daily. Records indicate that he underwent paracentesis of 40 mL at that time and that SBP was ruled out, although I do not have his fluid study results. Cr. was 2.0 on admission and 1.1 at discharge. His primary complaint today is difficulty with eating. He reports poor appetite and states that he is losing weight. He will chew food and just spit it out. I spent a total of 14 minutes during this real-time clinical encounter that was initiated by the patient which started at 1203 and ended at 1217. Consent was obtained to engage in telephonic service. Greater than 50% of the time spent was devoted to counseling and coordinating care including review of patient record, patient lab data and studies as well as discussing diagnostic evaluation and workup, planned therapeutic intervention and further disposition of care Patient requested telephonic encounter due to difficulty making it in to the office today due to living distance from the office and limited capability for televideo conferencing. The patient and listed provider were the only participants on the call. Porfirio Lozano PA-C [address] [facility], [place], [address], [place] - [facility] - [place] & [place] 08/02/2023 23:06:18
--- NOTE | 2024-05-27 16:33 | CT_ITS ---
PROCEDURE INFORMATION: Exam: CT Abdomen And Pelvis With Contrast Exam date and time: 05/27/2024 5:57 PM Age: 69 years old Clinical indication: Abdominal pain; Additional info: Diffuse ascites, abdominal pain TECHNIQUE: Imaging protocol: Computed tomography of the abdomen and pelvis with contrast. Radiation optimization: All CT scans at this facility use at least one of these dose optimization techniques: automated exposure control; mA and/or kV adjustment per patient size (includes targeted exams where dose is matched to clinical indication); or iterative reconstruction. Contrast material: ISOVUE; Contrast volume: 75 ml; Contrast route: IV; COMPARISON: No relevant prior studies available. FINDINGS: Tubes, catheters and devices: None noted. Lungs: Lung bases appear clear. Heart: No significant coronary calcifications. No cardiomegaly. No significant pericardial effusion. Liver: Normal. No mass. Gallbladder and biliary ducts: Normal. No calcified stones. No ductal dilation. Pancreas: Normal. No ductal dilation. Spleen: Normal. No splenomegaly. Adrenal glands: 2.0 x 2.8 cm left adrenal mass. Suspect adenoma. Kidneys and ureters: Normal. No hydronephrosis. Stomach and bowel: Unremarkable. No obstruction. No mucosal thickening. Appendix: No evidence of appendicitis. Intraperitoneal space: Ascites. No free air. No significant fluid collection. Retroperitoneal space: No significant retroperitoneal inflammatory changes are noted. Vasculature: Unremarkable. No abdominal aortic aneurysm. Lymph nodes: Unremarkable. No enlarged lymph nodes. Urinary bladder: Unremarkable as visualized. Reproductive: Unremarkable as visualized. Bones/joints: Unremarkable. No acute fracture. Soft tissues: Unremarkable. IMPRESSION: Ascites. 2.8 cm left adrenal adenoma.
--- NOTE | 2024-05-27 16:33 | ED_ITS ---
Discharge Plan Disposition Patient Disposition: Home, Self-Care Chief Complaint: Abdominal Pain Prescriptions Prescriptions: No Action lisinopril-hydrochlorothiazide 20-12.5 mg tablet 2 tab PO DAILY magnesium oxide 400 mg (241.3 mg magnesium) tablet 400 mg PO DAILY furosemide [Lasix] 40 mg tablet 40 mg PO DAILY Qty: 90 3RF spironolactone 100 mg tablet 100 mg PO DAILY Qty: 90 3RF (DME) lancets [Accu-Chek Softclix Lancets] Misc See Rx Instructions .ROUTE .MEDSUPPLY Qty: 100 Patient Comments: USE DIRECTED EVERY DAY Rx Instructions: As directed (DME) Accu-Chek Guide test strips Strip See Rx Instructions .ROUTE .MEDSUPPLY Qty: 10 Patient Comments: USE TO test blood sugar EVERY DAY Rx Instructions: As directed (DME) blood-glucose meter [Accu-Chek Guide Me Glucose Mtr] Misc See Rx Instructions .ROUTE .MEDSUPPLY Qty: 1 Patient Comments: USE DIRECTED TO check blood sugar Rx Instructions: As directed allopurinol 300 mg tablet 300 mg PO DAILY meclizine 25 mg Tablet 25 mg PO TID Qty: 90 0RF ferrous sulfate 325 mg (65 mg iron) Tablet 325 mg PO DAILY Qty: 30 4RF thiamine HCl (vitamin B1) 500 mg tablet 500 mg PO DAILY Qty: 30 4RF Referrals Follow up/Referrals: Jairo Singleton MD [Primary Care Provider] - See instructions Activity Restrictions/Add. Instructions Additional Instructions/Restrictions: At this time it was felt you are safe to be discharged home. If new or worsening symptoms please do not hesitate to return the emergency department. Please continue to follow-up with your airborne sensor specialist as discussed. There was a spot found on one of your adrenal glands that day or your primary care doctor can continue to follow. Clinical Impressions Clinical Impression: Adrenal adenoma, Abdominal ascites Instructions Patient Instructions: DI for Acute Abdominal Pain Print Language Print Language: Sami Discharge ED Provider: Armani Reyes General Adult HPI <ORLANDO Saleem - Last Filed: 05/27/24 18:50> General Chief complaint: Abdominal Pain Stated complaint: Sent By Tadeo sullivan on abdomin Time Seen by Provider: 05/27/24 16:19 Mode of Arrival: Ambulatory Source of Information: Patient Limitations: No Limitations History of Present Illness HPI narrative: 69-year-old male presents to the emergency department with a several month history of worsening abdominal discomfort/pain, distention, and weight gain/ fluid on my abdomen . Patient has a history of alcohol abuse/liver cirrhosis, last drink was last summer 2023, patient had what sounds like therapeutic/diagnostic paracentesis that was performed in December 2023, he notes worsening symptoms since. He attempted to call his GI physician and set up outpatient treatment/follow-up several days ago, they were unable to get him in and he was instructed to come to the emergency department . Patient denies any fever chills chest pain shortness of breath, denies any real nausea or vomiting, no constipation no diarrhea, no urinary toxin otology, no melena, no hematochezia, no hematemesis or hemoptysis. Patient is otherwise medical history consistent with prior CVA last year, wheelchair-bound, current everyday smoker, COPD, GERD, gout, hypertension, patient tells me however that he has been off all medications recently after following up with his PCP. Initial triage vitals unremarkable, patient denies any alcohol or drug use. Onset (ago): month(s) Related Data Home Medications ?Medication ?Instructions ?Recorded ?Confirmed allopurinol 300 mg tablet 300 mg PO DAILY 08/04/23 05/05/24 blood sugar diagnostic (Accu-Chek #10 ea 11/20/23 05/05/24 Guide test strips) blood-glucose meter (Accu-Chek #1 ea 11/20/23 05/05/24 Guide Me Glucose Meter) lancets (Accu-Chek Softclix #100 ea 11/20/23 05/05/24 Lancets) lisinopril 20 2 tab PO DAILY 11/30/23 05/05/24 mg-hydrochlorothiazide 12.5 mg tablet magnesium oxide 400 mg (241.3 mg 400 mg PO DAILY 11/30/23 05/05/24 magnesium) tablet Previous Rx's ?Medication ?Instructions ?Recorded ferrous sulfate 325 mg (65 mg 325 mg PO DAILY #30 tabs 08/13/23 iron) tablet meclizine 25 mg tablet 25 mg PO TID #90 tabs 08/13/23 thiamine HCl (vitamin B1) 500 mg 500 mg PO DAILY #30 tabs 08/13/23 tablet furosemide 40 mg tablet (Lasix) 40 mg PO DAILY #90 tabs 01/15/24 spironolactone 100 mg tablet 100 mg PO DAILY #90 tabs 01/15/24 Allergies Allergy/AdvReac Type Severity Reaction Status Date / Time No Known Allergies Allergy Verified 05/05/24 09:33 [facility] <ORLANDO Saleem - Last Filed: 05/27/24 18:50> [facility] Disclaimer: The information contained in this section may have been updated after the patient was seen, as this information can be updated by other users. Medical History Falls History of type 2 diabetes mellitus History of COPD Cataracts, both eyes Arthritis Closed T12 spinal fracture Anorexia Weight loss, unintentional EWA (acute kidney injury) Adult failure to thrive EWA (acute kidney injury) Dyspnea on exertion Alcohol use Nicotine dependence, unspecified, uncomplicated Colon polyps DM type 2 (diabetes mellitus, type 2) Hyperlipidemia Alcoholism Cirrhosis Hypertension Diabetes mellitus Gout Surgical History History of colonoscopy Family History Other Cancer Coronary artery disease Diabetes Hyperlipidemia Hypertension Social History Smoking Status: Current every day smoker tobacco type: cigarettes packs per day: 1 alcohol intake: former substance use type: denies use current occupational status: unemployed Travel in the last 8 weeks: None household members: spouse marital status: number of children: 2 Have you lived/traveled outside [place] in past 30 days?: No Contact w/someone who lives/traveled outside US past 30 days?: No Exposure to someone with infectious disease in past 14 days?: No Do you have a fever (greater than 100.4 F or 38 C)?: No Have you tested positive for COVID-19: No Exposed to someone with COVID-19 in past 14 days?: No Do you have a sore throat?: No Do you have a cough?: No Do you have any weakness?: No Do you have any diarrhea?: No Are you experiencing any unusual bleeding?: No Do you have any muscle aches/pain?: No Do you have any abdominal pain?: No Are you experiencing loss of taste or smell?: No Other Medical History Have you received the Flu Vaccine for this season: No Have you received the Pneumonia Vaccine: No <ORLANDO Saleem - Last Filed: 05/27/24 18:50> ROS Obtained: Yes All systems reviewed & no additional complaints except as documented Physical Exam <ORLANDO Saleem - Last Filed: 05/27/24 18:50> General General appearance: alert and in no apparent distress Head Head exam: atraumatic and normocephalic Eye Eye exam: Present PERRL, EOMI, scleral icterus and other (Minimal scleral icterus.) ENT ENT exam: Present mucous membranes moist Neck Neck exam: Present normal inspection Chest Chest inspection: Present normal inspection and symmetric chest wall rise Respiratory Respiratory exam: Present normal lung sounds bilaterally; Absent respiratory distress Cardiovascular Cardiovascular exam: Present regular rate and normal rhythm Abdominal Exam Abdominal exam: Present soft, distention, tenderness, ascites, mass and hernia; Absent guarding, rebound or rigidity Abdominal tenderness: Present mild Comment: Mild diffuse ascites, and mildly distended abdomen, with mild diffuse tenderness throughout, the abdomen, and mild fluid wave shift, there is a obvious umbilical hernia, that is irreducible at the bedside Extremities Exam Extremities exam: Present normal inspection Neurological Exam Neurological exam: Present alert and oriented X3 Psychiatric Psychiatric exam: Present normal affect Skin Skin exam: Present warm and dry Medical Decision Making <ORLANDO Saleem - Last Filed: 05/27/24 18:50> Medical Records Medical records reviewed: Yes I reviewed the patient's medical records. Screening: Per USPSTF and CDC recommendations, given the prevalence of disease in our region, it is our hospital?s policy to screen for HIV and viral Hepatitis for all patients aged 18 and over and those with ongoing risk factors. Jovany Inquiry Pt receiving controlled substance: No Jovany was queried for this patient: No Vital Signs: 05/27/24 16:26 05/27/24 16:30 05/27/24 16:35 Temperature 98.7 F Temperature Source Oral Pulse Rate 88 85 Pulse Rate [Right] 84 Respiratory Rate 18 Blood Pressure 187/103 H 195/120 H Blood Pressure [Right Arm] 187/103 H Blood Pressure Mean [Right Arm] 131 02 Sat by Pulse Oximetry 95 98 95 Oxygen Delivery Method Room Air Room Air Room Air 05/27/24 17:00 05/27/24 17:29 05/27/24 17:30 Temperature Temperature Source Pulse Rate 82 91 H 86 Pulse Rate [Right] Respiratory Rate Blood Pressure 187/107 H 196/121 H 205/106 H Blood Pressure [Right Arm] Blood Pressure Mean [Right Arm] 02 Sat by Pulse Oximetry 98 96 98 Oxygen Delivery Method Room Air Room Air Room Air 05/27/24 17:34 05/27/24 17:37 05/27/24 17:41 Temperature Temperature Source Pulse Rate 88 89 96 H Pulse Rate [Right] Respiratory Rate Blood Pressure 202/108 H 198/108 H 200/118 H Blood Pressure [Right Arm] Blood Pressure Mean [Right Arm] 02 Sat by Pulse Oximetry 96 97 96 Oxygen Delivery Method Room Air Room Air Room Air 05/27/24 17:44 05/27/24 18:30 Temperature Temperature Source Pulse Rate 93 H 88 Pulse Rate [Right] Respiratory Rate Blood Pressure 195/109 H 182/105 H Blood Pressure [Right Arm] Blood Pressure Mean [Right Arm] 02 Sat by Pulse Oximetry 98 97 Oxygen Delivery Method Room Air Room Air Lab Data Lab Results 05/27/24 16:30: WBC 6.6, RBC 4.60, Hgb 13.1 L, Hct 40.2 L, MCV 87.4, MCH 28.5, MCHC 32.6, RDW 15.1, Plt Count 218, MPV 11.0 H, Neut % (Auto) 56.6, Lymph % (Auto) 30.4, [place] % (Auto) 8.6, Eos % (Auto) 3.3, Baso % (Auto) 0.9, Neut # (Auto) 3.7, Lymph # (Auto) 2.0, [place] # (Auto) 0.6, Eos # (Auto) 0.2, Baso # (Auto) 0.1, PT 10.9, INR 0.97, APTT 28.7, Sodium 139, Potassium 4.3, Chloride 108 H, Carbon Dioxide 24, Anion Gap 11.3, BUN 25 H, Creatinine 1.30 H, Estimated Creat Clear 59, Estimated GFR 55 L, Est GFR ( Amer) 67, Glucose 136 H, Lactate 1.1, Calcium 9.1, Magnesium 1.7, Total Bilirubin 0.3, AST 24, ALT 20, Alkaline Phosphatase 98, NT-Pro-B Natriuret Pep 363 H, Total Protein 7.3 D, Albumin 3.8, Globulin 3.5 H, Albumin/Globulin Ratio 1.1, Lipase 120, Plasma/Serum Alcohol < 10, HCV Ab SOBIA w/Rflx PCR Qn Negative 05/27/24 17:20: Fluid Source Peritoneal fluid, Fluid Volume 20, Fluid Appearance Normal, Fluid RBC (Auto) < 2000, Fld Tot Nucleated Cell 129 05/27/24 16:30 05/27/24 16:30 Orders (Tests/Meds): ED MEDICATIONS Generic Name Dose Route Start Last Admin Trade Name Freq PRN Reason Stop Dose Admin Sodium Chloride 10 ml 05/27/24 17:54 05/27/24 17:55 Sodium Chloride 0.9% 10ml Syr (Rad Only) IV 06/26/24 17:53 10 ml NEEDED PRN Administration Maintain IV Site Discontinued Medications Generic Name Dose Route Start Last Admin Trade Name Freq PRN Reason Stop Dose Admin Iopamidol 75 ml 05/27/24 17:54 05/27/24 17:55 Iopamidol-370 (76%);100ml Bottle IV 05/27/24 17:55 75 ml ONCE ONE Administration ORDERS Category Date Time Status CT abdomen pelvis w con Stat Cat Scan 05/27/24 16:33 Completed POCUS Point of Care (ER Only) Stat Exams 05/27/24 17:07 Taken Body Fluid: Cell Count w/ Diff Stat Lab 05/27/24 17:20 Results Complete Blood Count Auto Diff Stat Lab 05/27/24 16:30 Completed Comprehensive Metabolic Panel Stat Lab 05/27/24 16:30 Completed Ethanol [Ethyl Alcohol] Stat Lab 05/27/24 16:30 Completed HIV Combo Stat Lab 05/27/24 16:30 Received Hepatitis C Ab Qual. W/ RFX Stat Lab 05/27/24 16:30 Completed Lactic Acid Stat Lab 05/27/24 16:30 Completed Lipase Stat Lab 05/27/24 16:30 Completed Magnesium Stat Lab 05/27/24 16:30 Completed NT Pro Brain Natriuretic Pep. Stat Lab 05/27/24 16:30 Completed PT INR [Prothrombin Time INR] Stat Lab 05/27/24 16:30 Completed PTT [Activated Partial Thrombo Time] Stat Lab 05/27/24 16:30 Completed Body Fluid Cult & Gram Stain Stat Micro 05/27/24 17:20 Received Medical Decision Narrative: 69-year-old male presents emergency department abdominal pain and ascites, differential diagnosis could but noted to portal venous hypertension, spontaneous bacterial peritonitis, acute liver failure, liver cirrhosis, bowel obstruction, coagulopathy, pancreatitis, malignancy among others. Will obtain basic laboratory studies, ethyl alcohol level lactate level lipase level magnesium level PT/INR, PTT, proBNP, CT ab pelvis with contrast. CBC is notable for hemoglobin 13.1, hematocrit 40.2 Coags within normal limits CMP is notable for elevated BUN at 20, creatinine elevation at 1.3, GFR is 55, lactate level within normal limits,, no lipase elevation, Procedure: Procedure performed as ultrasound-guided paracentesis. Procedure performed by Fox Marquez under my direction and direct supervision. [id number] ultrasound performed by Armani Reyes identified maximum fluid pocket greater than 12 cm in the right lower quadrant, area was marked. Wound was numbed by Fox Marquez 1% lidocaine with epinephrine approximately 5 cc was infected into a wheal and subsequently advanced until straw-colored fluid was withdrawn and the remainder was injected as it was withdrawn. Skin hemant was made with a safety 11 blade. Safety centesis catheter was entered into the abdomen perpendicular through the tract until straw-colored fluid was withdrawn. Sample was removed approximately 20 cc to send off for testing. Catheter was threaded over the obturator and obturator subsequently removed. It was hooked up to vacuum containers and approximately 4 L of straw-colored fluid was removed. Catheter was removed and wound was hemostatic, Band-Aid placed over the wound. Patient tolerated the procedure well. There were no immediate complications. Will obtain peritoneal fluid for cell count and Gram stain Plasma serum alcohol level within normal limits, BNP is mildly elevated at 363, was unremarkable CMP. I reviewed the patient's CT abdomen/pelvis with contrast along the corresponding radiologic report, ascites and a 2.8 cm left adrenal adenoma. I discussed this patient's case with attending physician at shift change he will be assuming remainder the patient's care/workup, patient's care is currently pending peritoneal fluid analysis to rule out SBP. <Armani Reyes MD - Last Filed: 05/27/24 19:08> Vital Signs: 05/27/24 16:26 05/27/24 16:30 05/27/24 16:35 Temperature 98.7 F Temperature Source Oral Pulse Rate 88 85 Pulse Rate [Right] 84 Respiratory Rate 18 Blood Pressure 187/103 H 195/120 H Blood Pressure [Right Arm] 187/103 H Blood Pressure Mean [Right Arm] 131 02 Sat by Pulse Oximetry 95 98 95 Oxygen Delivery Method Room Air Room Air Room Air 05/27/24 17:00 05/27/24 17:29 05/27/24 17:30 Temperature Temperature Source Pulse Rate 82 91 H 86 Pulse Rate [Right] Respiratory Rate Blood Pressure 187/107 H 196/121 H 205/106 H Blood Pressure [Right Arm] Blood Pressure Mean [Right Arm] 02 Sat by Pulse Oximetry 98 96 98 Oxygen Delivery Method Room Air Room Air Room Air 05/27/24 17:34 05/27/24 17:37 05/27/24 17:41 Temperature Temperature Source Pulse Rate 88 89 96 H Pulse Rate [Right] Respiratory Rate Blood Pressure 202/108 H 198/108 H 200/118 H Blood Pressure [Right Arm] Blood Pressure Mean [Right Arm] 02 Sat by Pulse Oximetry 96 97 96 Oxygen Delivery Method Room Air Room Air Room Air 05/27/24 17:44 05/27/24 18:30 Temperature Temperature Source Pulse Rate 93 H 88 Pulse Rate [Right] Respiratory Rate Blood Pressure 195/109 H 182/105 H Blood Pressure [Right Arm] Blood Pressure Mean [Right Arm] 02 Sat by Pulse Oximetry 98 97 Oxygen Delivery Method Room Air Room Air Lab Data Lab Results 05/27/24 16:30: WBC 6.6, RBC 4.60, Hgb 13.1 L, Hct 40.2 L, MCV 87.4, MCH 28.5, MCHC 32.6, RDW 15.1, Plt Count 218, MPV 11.0 H, Neut % (Auto) 56.6, Lymph % (Auto) 30.4, [place] % (Auto) 8.6, Eos % (Auto) 3.3, Baso % (Auto) 0.9, Neut # (Auto) 3.7, Lymph # (Auto) 2.0, [place] # (Auto) 0.6, Eos # (Auto) 0.2, Baso # (Auto) 0.1, PT 10.9, INR 0.97, APTT 28.7, Sodium 139, Potassium 4.3, Chloride 108 H, Carbon Dioxide 24, Anion Gap 11.3, BUN 25 H, Creatinine 1.30 H, Estimated Creat Clear 59, Estimated GFR 55 L, Est GFR ( Amer) 67, Glucose 136 H, Lactate 1.1, Calcium 9.1, Magnesium 1.7, Total Bilirubin 0.3, AST 24, ALT 20, Alkaline Phosphatase 98, NT-Pro-B Natriuret Pep 363 H, Total Protein 7.3 D, Albumin 3.8, Globulin 3.5 H, Albumin/Globulin Ratio 1.1, Lipase 120, Plasma/Serum Alcohol < 10, HCV Ab SOBIA w/Rflx PCR Qn Negative 05/27/24 17:20: Fluid Source Peritoneal fluid, Fluid Volume 20, Fluid Appearance Normal, Fluid RBC (Auto) < 2000, Fld Tot Nucleated Cell 129 Orders (Tests/Meds): ED MEDICATIONS Generic Name Dose Route Start Last Admin Trade Name Freq PRN Reason Stop Dose Admin Sodium Chloride 10 ml 05/27/24 17:54 05/27/24 17:55 Sodium Chloride 0.9% 10ml Syr (Rad Only) IV 06/26/24 17:53 10 ml NEEDED PRN Administration Maintain IV Site Discontinued Medications Generic Name Dose Route Start Last Admin Trade Name Freq PRN Reason Stop Dose Admin Iopamidol 75 ml 05/27/24 17:54 05/27/24 17:55 Iopamidol-370 (76%);100ml Bottle IV 05/27/24 17:55 75 ml ONCE ONE Administration ORDERS Category Date Time Status CT abdomen pelvis w con Stat Cat Scan 05/27/24 16:33 Completed POCUS Point of Care (ER Only) Stat Exams 05/27/24 17:07 Taken Body Fluid: Cell Count w/ Diff Stat Lab 05/27/24 17:20 Results Complete Blood Count Auto Diff Stat Lab 05/27/24 16:30 Completed Comprehensive Metabolic Panel Stat Lab 05/27/24 16:30 Completed Ethanol [Ethyl Alcohol] Stat Lab 05/27/24 16:30 Completed HIV Combo Stat Lab 05/27/24 16:30 Received Hepatitis C Ab Qual. W/ RFX Stat Lab 05/27/24 16:30 Completed Lactic Acid Stat Lab 05/27/24 16:30 Completed Lipase Stat Lab 05/27/24 16:30 Completed Magnesium Stat Lab 05/27/24 16:30 Completed NT Pro Brain Natriuretic Pep. Stat Lab 05/27/24 16:30 Completed PT INR [Prothrombin Time INR] Stat Lab 05/27/24 16:30 Completed PTT [Activated Partial Thrombo Time] Stat Lab 05/27/24 16:30 Completed Body Fluid Cult & Gram Stain Stat Micro 05/27/24 17:20 Received Medical Decision Narrative: 69-year-old male presents emergency department abdominal pain and ascites, differential diagnosis could but noted to portal venous hypertension, spontaneous bacterial peritonitis, acute liver failure, liver cirrhosis, bowel obstruction, coagulopathy, pancreatitis, malignancy among others. Will obtain basic laboratory studies, ethyl alcohol level lactate level lipase level magnesium level PT/INR, PTT, proBNP, CT ab pelvis with contrast. CBC is notable for hemoglobin 13.1, hematocrit 40.2 Coags within normal limits CMP is notable for elevated BUN at 20, creatinine elevation at 1.3, GFR is 55, lactate level within normal limits,, no lipase elevation, Procedure: Procedure performed as ultrasound-guided paracentesis. Procedure performed by Fox Marquez under my direction and direct supervision. [id number] ultrasound performed by Armani Reyes identified maximum fluid pocket greater than 12 cm in the right lower quadrant, area was marked. Wound was numbed by Fox Marquez 1% lidocaine with epinephrine approximately 5 cc was infected into a wheal and subsequently advanced until straw-colored fluid was withdrawn and the remainder was injected as it was withdrawn. Skin hemant was made with a safety 11 blade. Safety centesis catheter was entered into the abdomen perpendicular through the tract until straw-colored fluid was withdrawn. Sample was removed approximately 20 cc to send off for testing. Catheter was threaded over the obturator and obturator subsequently removed. It was hooked up to vacuum containers and approximately 4 L of straw-colored fluid was removed. Catheter was removed and wound was hemostatic, Band-Aid placed over the wound. Patient tolerated the procedure well. There were no immediate complications. Will obtain peritoneal fluid for cell count and Gram stain Plasma serum alcohol level within normal limits, BNP is mildly elevated at 363, was unremarkable CMP. I reviewed the patient's CT abdomen/pelvis with contrast along the corresponding radiologic report, ascites and a 2.8 cm left adrenal adenoma. I discussed this patient's case with attending physician at shift change he will be assuming remainder the patient's care/workup, patient's care is currently pending peritoneal fluid analysis to rule out SBP. Armani Reyes: Upon assumption of care patient was hemodynamically stable. Workup reviewed by me, no significant leukocytosis or anemia, no EWA or critical electrolyte abnormality. Peritoneal fluid not consistent with SBP total nucleated cell count 129. CT of the abdomen pelvis consistent with ascites and 2.8 cm incidental left adrenal adenoma. Given this patient is appropriate for outpatient management at this time will follow-up with GI on an outpatient basis. Critical Care <ORLANDO Saleem - Last Filed: 05/27/24 18:50> Critical Care Time Critical Care Time: No
[2024-05-27 16:41] LABS: Basophils # 0.1 K/mm3 (0-0.2); Basophils % 0.9 % (0.1-2.0); Eosinophils # 0.2 Kmm3 (0.0-0.4); Eosinophils % 3.3 % (0.1-12.0); Hematocrit 40.2 % (42.0-52.0); Hemoglobin 13.1 g/dL (14.1-18.0); Lymphocytes % 30.4 % (10-50); Mean Corpuscular HGB Conc 32.6 g/dL (31.8-35.4); Mean Corpuscular Hemoglobin 28.5 pg (27.0-31.2); Mean Corpuscular Volume 87.4 fl (80-94); Monocytes # 0.6 K/mm3 (0.1-1.0); Monocytes % 8.6 % (1.7-9.3); Neutrophils # 3.7 K/mm3 (1.8-7.8); Neutrophils % 56.6 % (37.0-80.0); Nucleated Red Blood Cells # 0 10^3/uL; Nucleated Red Blood Cells % 0 %; Platelet Count 218 K/mm3 (142-424); Red Cell Distribution Width 15.1 % (11.5-17.5); Red Cell Distribution Width-SD 48.1 fL; White Blood Count 6.6 K/mm3 (4.8-10.8)
[2024-05-27 16:46] LABS: Albumin Level 3.8 g/dl (3.5-5.0); Chloride 108 mmol/L (98-107); Potassium 4.3 mmoL/L (3.5-5.1); Sodium 139 mmol/L (136-145)
[2024-05-27 16:48] LABS: Alanine Aminotransferase 20 U/L (12-78); Aspartate Amino Transferase 24 U/L (17-59); Blood Urea Nitrogen 25 mg/dl (9-20); Creatinine Clearance Estimated 59 mL/min (50-200); Estimated Glomerular Filt Rate 55 ml/min (>60); GFR (African American) 67 ML/MIN (>60)
[2024-05-27 16:49] LABS: Albumin/Globulin Ratio 1.1 (1.1-1.8); Alkaline Phosphatase 98 U/L (38-126); Anion Gap 11.3 mEq/L (5-15); Bilirubin,Total 0.3 mg/dl (0.2-1.3); Calcium 9.1 mg/dl (8.4-10.2); Carbon Dioxide 24 mmol/L (22.0-30.0); Globulin 3.5 g/dL (1.3-3.2); Glucose 136 mg/dl (74-100); Lipase 120 U/L (23-300); Magnesium 1.7 mg/dl (1.6-2.3); Total Protein,Serum 7.3 g/dl (6.3-8.2)
[2024-05-27 16:51] LABS: Lactic Acid 1.1 mmol/L (0.7-2.1)
[2024-05-27 16:52] LABS: Activated Partial Thrombo Time 28.7 seconds (22.8-30.6); INR 0.97 (0.9-1.1); Prothrombin Time 10.9 seconds (10.1-12.5)
[2024-05-27 17:14] LABS: Ethyl Alcohol < 10 mg/dl (0-10)
[2024-05-27 17:17] LABS: NT Pro Brain Natriuretic Pep. 363 pg/mL (0-125)
--- NOTE | 2024-05-27 17:46 | PC.NURSE ---
4 liters removed during paracentesis. sample sent to lab. pt tolerated well.
[2024-05-27] MEDS: IOPAMIDOL-370 (76%);100ML BOTTLE 75 ML IV (17:55)
[2024-05-27] MEDS: SODIUM CHLORIDE 0.9% 10ML SYR (RAD ONLY) 10 ML IV (17:55)
[2024-05-27 17:59] LABS: Hepatitis C Ab Qual. W/ RFX NEGATIVE (Negative)
[2024-05-27 18:16] LABS: Appearance,Body Fld. Normal; Source, Body Fld. Peritoneal Fluid
[2024-05-27 18:17] LABS: Volume,Body Fld. 20 mL
[2024-05-27 18:47] LABS: RBC,Body Fluid < 2000 cells/uL (< 10 X 10^3); TNC,Body Fluid 129 cells/uL (< 1000)
[2024-05-27 21:14] LABS: Mononuclear WBCs,Body Fluid 92 %; Polynuclear WBC,Body Fluid 8 %
[2024-05-29 11:04] LABS: HIV Combo NEGATIVE (Negative)
--- NOTE | 2024-05-31 09:33 | PC.NURSE ---
I spoke with about the pts final gram stain. He states NTD/ no SBP. False positive- culture was negative. no change in treatment.
== END 2024-05-27 19:48 | disposition home or self-care (01) ==
PROVIDERS: Physician Assistant; Emergency Provider Emergency Medicine; PCP Family Medicine
DX: R10.84 Generalized abdominal pain (principal); R18.8 Other ascites; D35.02 Benign neoplasm of left adrenal gland
CPT/HCPCS: 49083; 74177; 80053; 80320; 83605; 83690; 83735; 83880; 85025; 85610; 85730; 86803; 87070; 87205; 87389; 89051; 99285; Q9967

== ENCOUNTER 2024-05-30 09:47 | Outpatient (CLI) | payer MEDICARE, SELFPAY ==
--- OUTSIDE RECORDS SUMMARY | 2024-05-30 09:49 | XMS_ITS | Data Portability ---
Author Organization [facility] [place] [facility] [place] Ojeda ADMIN Address [address] [place] [address] Assessment Encounter Date Assessment Date Assessment LastModified [...] the order both there and to the [facility] lab. He will follow-up by phone in 1 week to discuss the findings, potentially plan to change his diuretics at that time. Readdress need for EGD at that time as well. [email or web address] Not available 06/27/2023 13:14:50 07/12/2023 07/12/2023 68-year-old [...] renal function labs in 2 weeks at [facility]. -Prevously discussed referral for liver transplant [...] labs in 2 weeks. f/u 3 weeks [email or web address] Not available 07/12/2023 11:29:52 08/02/2023 08/02/2023 68-year-old [...] Patient would like to proceed with EGD [email or web address] Not available 08/02/2023 23:05:54 Plan of Treatment Reminders Order Date Submit Date Provider Last Modified By Organization Details Last Modified Time Details Appointments None record ed. Lab CBC [address] (Lab), [address], [facility], [address], 4 13:32:50 BMP, serum or plasma [address] (Lab), [address], [facility], [address], 4 13:32:51 iron + TIBC + ferrit in, serum [address] (Lab), [address], [facility], [address], 4 13:32:51 vitami n B12 + folate , serum or blood 2023 024 [email or web address] [facility] (Lab), [address] [place] [address], [facility], [address], 4 13:32:51 afp (alpha -fetop rotein ) tumor marker , serum or plasma 2023 024 [email or web address] [facility], [address] [place] [address] 36 [address], [facility], [address], 4 15:55:51 CMP, serum or plasma 2023 024 [email or web address] [facility], [address] [place] [address] E, [facility], [address], 4 15:56:34 CBC 2023 024 [email or web address] [facility], [address] [place] [address] 36 [address], [facility], [address], 4 15:56:40 INR, blood 2023 024 [email or web address] [facility], [address] [place] [address] 36 E, [facility], [address], 4 15:56:52 hepati tis panel (A+B+C ), acute, serum 2023 024 [email or web address] [facility], [address] [place] [address] 36 E, [facility], [address], 4 15:57:05 iron + TIBC + ferrit in, serum 2023 024 [facility], [address] [place] [address] 36 [address], [facility], [address], 4 15:54:59 Referral None record ed. Procedures None record ed. Surgeries None record ed. Imaging None record ed. Medication Orders Lasix 20 mg tablet 2023 024 [facility], [address], [place], [address], 10:55:52 Patient TargetsNo targets recorded. Patient InstructionsNo instructions recorded. Reason for Referral None Reported. Results Created Date Observation Date Name Description Value Unit Range Abnormal Flag Note LastModifiedBy Organization Detail LastModifiedTime Result Notes None recorded. Problems Name Problem SNOMED Code Status Onset Date Resolution Date Notes Provider Name and Address Organization Details Recorded Time Cirrhosis of liver Active [address], [place], [address] , [place] - [facility] [place] & [place] 4 12:31:36 Ascites due to alcoholic cirrhosis 0085986565373 104 Active [address], [place], [address] , [place] - [facility] [place] & [place] 4 12:41:29 Peripheral edema 996364991 Active [address], [place], [address] , [place] [facility] [place] & [place] 4 12:41:35 Diarrhea 07043447 Active [address], [place], [address] , [place] - [facility] & [place] 4 12:41:47 Decrease in appetite 17097870 Active [address], [place], [address] , [place] - [facility] & [place] 4 12:41:52 Macrocytic anemia 60837653 Active [address], [place], [address] , [place] - [facility] & [place] 4 11:16:53 Problem Notes None recorded. Medical [...] Address Organization Details Last Updated DateTime 4 [address]689.4 1 g 30.3 kg/m2 162.56 cm 98 /min 94 /min 98 % 98 % 97.9 [degF] 106 mm[Hg] 70 mm[Hg] [facility] & [place] 4 11:00:08 Social History None recorded. Functional Status None recorded. Mental Status None recorded. Family History Nothing Reported. Medical History No medical history recorded. Past Encounters Encounter ID Performer Location Encounter Start Date Encounter Closed Date Diagnosis/Indication Diagnosis SNOMED-CT Code Diagnosis ICD10 Code Diagnosis Note [id number] Porfirio Lozano PA-C [facility] [address] [place] [address] 06/27/2023 10:42:56 06/27/2023 12:14:16 Cirrhosis of liver 46241250 K74.60 Ascites du e to alcoholic cirrhosis 4316919447 733103 K70.31 Peripheral edema 8262039 00 R60.9 Diarrhea 63612132 R19.7 Decrease in appetite 643 51348 R63.0 [id number] Porfirio Lozano PA-C [facility] [address] [address] 07/12/2023 10:47:15 07/12/2023 10:56:46 Cirrhosis of liver 50983076 K74.60 Ascites du e to alcoholic cirrhosis 9042896343 456710 K70.31 Peripheral edema 3464091 00 R60.9 Diarrhea 70232025 R19.7 Decrease in appetite 643 48729 R63.0 Macrocytic anemia 198478 05 D53.9 [id number] Porfirio Lozano [facility] [address] [address] 08/02/2023 11:14:11 08/02/2023 13:02:16 Cirrhosis of liver 50049246 K74.60 Ascites du e to alcoholic cirrhosis 7681635907 242376 K70.31 Peripheral edema 2312276 00 R60.9 Diarrhea 39550495 R19.7 Decrease in appetite 643 25936 R63.0 Macrocytic anemia 632520 05 D53.9 Health Concerns Section Related Observation LastModified by Organization Detai ls LastModified Time None Recorded Concern Status LastModified by Organization Details LastModified Time None Recorded Advance Directives Directive None Recorded Payers Encounter Date Sequence Insurance Name Policy Number Policy Matthews Covered Member ID Matthews Member ID Guarantor Name 06/27/2023 1 [employer] (MEDICARE REPLACEMENT/A DVANTAGE - HMO) Reynaldo Simons [id number] Reynaldo Simons 07/12/2023 1 [employer] (MEDICARE REPLACEMENT/A DVANTAGE - HMO) Reynaldo Simons [id number] Reynaldo Simons 08/02/2023 1 [employer] (MEDICARE REPLACEMENT/A DVANTAGE - HMO) Reynaldo Simons [id number] Reynaldo Simons Notes Date Note Type Note [...] a few days. Porfirio Lozano PA-C [address] [facility], [place], [address], [facility] - [place] - [place] & [place] 06/27/2023 13:15:19 07/12/2023 text/html PREVIOUS ( 4): [...] participants on the call. Porfirio Lozano PA-C [address] [facility], [place], [address], [facility] - [facility] - [place] & [place] 07/26/2023 11:31:30 08/02/2023 text/html PREVIOUS ( 4): [...] for follow-up. He was admitted recently at [facility] and was transferred to [facility] due to acute kidney injury. His [...] participants on the call. Porfirio Lozano PA-C [address] [facility], [place], [address], [place] [facility] [place] & [place] 08/02/2023 23:06:18
--- NOTE | 2024-05-30 10:00 | US_ITS ---
FINAL REPORT CLINICAL HISTORY: K70.31 - Alcoholic cirrhosis of liver with ascites -- PARACENTESIS -- BEBETO PERRY -- 2250ML FINDINGS: ULTRASOUND-GUIDED PARACENTESIS HISTORY:Ascites ATTENDING PHYSICIAN: Dr. Hawley PHYSICIAN WHALE FISHERMAN: Bebeto Santamaria PA-C FINDINGS: After informed consent was obtained and timeout procedure performed, fluid was localized in the left lower quadrant under ultrasound guidance and marked on the skin appropriately. The patient was then prepped and draped in the usual sterile fashion and the skin was anesthetized with 1% lidocaine. An ultrasound guided paracentesis was then performed using a Turkel needle. Approximately 2.25 liters of fluid was removed. No fluid was sent to lab. The patient tolerated the procedure well and there were no immediate complications. IMPRESSION: Ultrasound guided left lower quadrant paracentesis as discussed above. Films reviewed , interpreted and dictated by Dr. Hawley. Transcribed by Bebeto Santamaria PA-C. Reviewed, Interpreted and Dictated by Issa Hawley MD Transcribed by ORLANDO Cruz Authenticated and [facility]
== END 2024-05-30 23:59 | disposition home or self-care (01) ==
PROVIDERS: PCP Family Medicine; Visit Provider Nurse Practitioner Family
DX: K70.31 Alcoholic cirrhosis of liver with ascites (principal)
CPT/HCPCS: 49083

== ENCOUNTER 2024-08-25 11:23 | Outpatient (CLI) | payer MEDICARE, SELFPAY ==
--- OUTSIDE RECORDS SUMMARY | 2024-08-25 11:26 | XMS_ITS | Clinical Summary ---
Author Organization [facility] Address [address] [place] [id number] Care Team Providers Care Office Rental Clerk Name Role Phone Provider, No Known Primary Care Provider Unavail able Allergies No known active allergies Medications pravastatin (PRAVACHOL) 40 MG tablet Take 1 tablet by mouth Daily. Active allopurinol (ZYLOPRIM) 300 MG tablet Take 1 tablet by mouth Daily. Active verapamil SR (CALAN-SR) 240 MG CR tablet Take 1 tablet by mouth Every Night. Active furosemide (LASIX) 20 MG tablet Take 0.5 tablets by mouth Daily. 30 tablet 07/29/2023 Active spironolactone (ALDACTONE) 25 MG tablet Take 1 tablet by mouth Daily. 30 tablet 07/29/2023 Active Active Problems Problem Noted Date Diagnosed Date EWA (acute kidney injury) 07/29/2023 Weakness 07/28/2023 Type 2 diabetes mellitus, wi out long-term current use of insulin 07/28/2023 Cirrhosis of liver 07/28/2023 Social History Tobacco Use Types Packs/Day Years Used Date Smoking Tobacco: Every Day Cigarettes 0.5 45.6 Started: 1977 Smokeless Tobacco: Never Alcohol Use Standard Drinks/Week Comments Not Currently 0 (1 standard drink = 0.6 oz pur e alcohol) quit drinking a month ago AUDIT-C Answer Date Recorded Q1: How often do you have a drink containing alcohol? Never 07/28/2023 Q2: How many drinks containi ng alcohol do you have on a typical day when you are drinking? Patient does not drink Q3: How often do you have si x or more drinks on one occasion? Monthly 07/28/2023 Abuse Screen Answer Date Recorded Feels Unsafe at Home or Work/School no 07/28/2023 Feels Threatened by Someone no 07/07 Does Anyone Try to Keep You From Having Contact with Others or Doing Things Outside Your Home? no 07/28/2023 Physical Signs of Abuse Present no 07/28/2023 Housing Stability Answer Date Recorded Current Living Arrangements home 07/07 Potentially Unsafe Housing Conditions Not on blaze e 07/28/2023 Family and Community Support Answer Angel e Recorded Help with Day-to-Day Activities Not on file 07/27/2023 Lonely or Isolated Not on file 07/27/2023 Employment Answer Date Recorded Do you want help finding or keeping work or a nisa b? Not on file 07/27/2023 Disabilities Answer Date Recorded Difficulty Concentrating, Remembering or Making Decisions no 07/28/2023 Difficulty Managing Errands Independently yes 07/28/2023 Education Answer Date Recorded Help with school or training? Not on file Preferred Language Not on file 07/27/2023 Sex and Gender Information Value Date Recorded Sex Assigned at Not on file Legal Sex Male 9:13 PM EDT Gender Identity Not on file Sexual Orientation Not on file Last Filed Vital Signs Vital Sign Reading Time Taken Comments Blood Pressure 117/87 07/29/2023 12:00 PM EDT Pulse 79 07/29/2023 12:00 PM EDT Temperature 36.6 C (97.8 F) 07/29/2023 6:55 AM EDT Respiratory Rate 16 07/29/2023 12:0 0 PM EDT Oxygen Saturation 96% 07/29/2023 12: 00 PM EDT Inhaled Oxygen Concentration - - Weight 71.2 kg (156 lb 15.5 oz) 07/28/2023 6:45 AM EDT Height 162.6 cm (5' 4 ) 07/28/2023 6:45 AM EDT Body Mass Index 26.94 07/28/2023 6:45 AM EDT Plan of Treatment Health Maintenance Due Date Last Done Comments ANNUAL PHYSICAL 1955 HEPATITIS C SCREENING 1957 COLOGUARD 2002 COLON CANCER SCREENING 5 FABRICE Marcus SIGMOIDOSCOPY 2002 COLONOSCOPY 2002 COLORECTAL CANCER SCREENING 2002 CT COLONOGRAPHY 2002 FECAL OCCULT BLOOD TEST 2002 FIT Testing (1 year) 2002 ZOSTER VACCINE (1 of 2) 04/15/2007 AAA SCREEN ONCE 2022 COVID-19 Vaccine (4 - 2023-2 5 season) 2023 02/02/2021, 06/02/2020, 05/05/2020 INFLUENZA VACCINE 11/05/2024 02/01/2021, 12/11/2019 TDAP/TD VACCINES (2 - Td or Tdap) 06/12/2029 020 HEMOGLOBIN A1C Discontinued 12/12/2018 Pneumococcal Vaccine 50+ Completed 02/12/2023 Insurance [facility] Medicare Advantage [employer] PPO Advance Directives * CPR (Attempt to Resuscitate) (Latest Code Status on File) Date Activated Date Inactivated Comments 07/28/2023 8:40 AM 07/29/2023 4:57 PM Question Answer Comments Code Status (Patient has no pulse and is not breathing): CPR (Attempt to Resuscitate) Medical Interventions (Patie nt has pulse or is breathing): Full Support Care Teams Office Rental Clerk Relationship Specialty Start Date End Date Provider, No Known [facility] [place] [address] PCP - General 07/28/23
--- OUTSIDE RECORDS SUMMARY | 2024-08-25 11:26 | XMS_ITS | Data Portability ---
Author Organization [facility] - [place] & [place] Ojeda ADMIN Address [address] [place] [address] Assessment Encounter Date Assessment Date Assessment LastModified [...] the order both there and to the [facility] lab. He will follow-up by phone in 1 week to discuss the findings, potentially plan to change his diuretics at that time. Readdress need for EGD at that time as well. [email or web address] Not available 06/27/2023 13:14:50 07/12/2023 07/12/2023 68-year-old [...] renal function labs in 2 weeks at [facility]. -Prevously discussed referral for liver transplant [...] labs in 2 weeks. f/u 3 weeks [email or web address] Not available 07/12/2023 11:29:52 08/02/2023 08/02/2023 68-year-old [...] Patient would like to proceed with EGD [email or web address] Not available 08/02/2023 23:05:54 Plan of Treatment Reminders Order Date Submit Date Provider Last Modified By Organization Details Last Modified Time Details Appointments None record ed. Lab CBC [address] (Lab), [address], [facility], [address], 4 13:32:50 BMP, serum or plasma [email or web address]Lab), [address], [facility], [address], 4 13:32:51 iron + TIBC + ferrit in, serum [address] (Lab), [address], [facility], [address], 4 13:32:51 vitami n B12 + folate , serum or blood 2023 024 [email or web address] [facility] (Lab), [address] [place] [address], [facility], [address], 4 13:32:51 afp (alpha -fetop rotein ) tumor marker , serum or plasma 2023 024 [email or web address], [address] [place] [address] 36 [address], [facility], [address], 4 15:55:51 CMP, serum or plasma 2023 024 [email or web address], [address] [place] [address] 36 E, [facility], [address], 4 15:56:34 CBC 2023 024 [email or web address], [address] [place] [address] 36 E, [facility], [address], 4 15:56:40 INR, blood 2023 024 [email or web address] [facility], [address] [place] [address] 36 E, [facility], [address], 4 15:56:52 hepati tis panel (A+B+C ), acute, serum 2023 024 [email or web address], [address] [place] [address] 36 E, [facility], [address], 4 15:57:05 iron + TIBC + ferrit in, serum 2023 024 [facility], [address] [place] [address] 36 [address], [facility], [address], 4 15:54:59 Referral None record ed. Procedures None record ed. Surgeries None record ed. Imaging None record ed. Medication Orders Lasix 20 mg tablet 2023 024 [facility], [address], [place], [address], 10:55:52 Patient TargetsNo targets recorded. Patient InstructionsNo instructions recorded. Reason for Referral None Reported. Results Created Date Observation Date Name Description Value Unit Range Abnormal Flag Note LastModifiedBy Organization Detail LastModifiedTime Result Notes None recorded. Problems Name Problem SNOMED Code Status Onset Date Resolution Date Notes Provider Name and Address Organization Details Recorded Time Cirrhosis of liver Active [address], [place], [address] , [place] - [facility] & [place] 12:31:36 Ascites due to alcoholic cirrhosis 1601064398532 104 Active [address], [place], [address] , [place] [facility] & [place] 4 12:41:29 Peripheral edema 321119690 Active [address], [place], [address] , [place] [facility] & [place] 4 12:41:35 Diarrhea 62002513 Active [address], [place], [address] , [place] [facility] & [place] 4 12:41:47 Decrease in appetite 71943239 Active [address], [place], [address] , [place] [facility] & [place] 4 12:41:52 Macrocytic anemia 99646128 Active [address], [place], [address] , [place] [facility] [facility] & [place] 4 11:16:53 Problem Notes None recorded. Medical [...] blood by Pulse oximetry Body temperature Systolic And Diastolic Provider Name and Address Organization Details Last Updated DateTime 4 84469.4 1 g 30.3 kg/m2 162.56 cm 98 /min 94 /min 98 % 98 % 97.9 [degF] 106/70 mm[Hg] [facility] & [place] 4 11:00:08 Social History None recorded. Functional Status None recorded. Mental Status None recorded. Family History Nothing Reported. Medical History No medical history recorded. Past Encounters Encounter ID Performer Location Encounter Start Date Encounter Closed Date Diagnosis/Indication Diagnosis SNOMED-CT Code Diagnosis ICD10 Code Diagnosis Note [id number] Porfirio Lozano PA-C [facility] [address] [place] [address] 06/27/2023 10:42:56 06/27/2023 12:14:16 Cirrhosis of liver 07925037 K74.60 Ascites du e to alcoholic cirrhosis 2499547311 547367 K70.31 Peripheral edema 2576305 00 R60.9 Diarrhea 36745485 R19.7 Decrease in appetite 643 [address] R63.0 [id number] Porfirio Lozano PA-C [facility] [address] [address] 07/12/2023 10:47:15 07/12/2023 10:56:46 Cirrhosis of liver 41748307 K74.60 Ascites du e to alcoholic cirrhosis 1074684244 926394 K70.31 Peripheral edema 1543477 00 R60.9 Diarrhea 90236030 R19.7 Decrease in appetite 643 [address]689 R63.0 Macrocytic anemia 842853 05 D53.9 [id number] Porfirio Lozano PA[facility]C [facility] [address] [address] 08/02/2023 11:14:11 08/02/2023 13:02:16 Cirrhosis of liver 77637004 K74.60 Ascites du e to alcoholic cirrhosis 1976050059 447864 K70.31 Peripheral edema 4986664 00 R60.9 Diarrhea 13174762 R19.7 Decrease in appetite 643 [address] R63.0 Macrocytic anemia 609778 05 D53.9 Health Concerns Section Related Observation LastModified by Organization Detai ls LastModified Time None Recorded Concern Status LastModified by Organization Details LastModified Time None Recorded Advance Directives Directive None Recorded Payers Insurance Date Sequence Insurance Name Policy Number Policy Matthews Covered Member ID Matthews Member ID Guarantor Name 08/20/2023 1 [employer] (MEDICARE REPLACEMENT/A DVANTAGE - HMO) Reynaldo Simons [id number] Reynaldo Kiddley Notes Date Note Type Note Provider Name [...] a few days. Porfirio Lozano PA-C [address] [facility], [place], [address], [facility] - [facility] - [place] & [place] 06/27/2023 13:15:19 07/12/2023 text/html PREVIOUS ( 4): [...] participants on the call. Porfirio Lozano PA-C [address] [facility], [place], [address], [place] [facility] [place] & [place] 07/26/2023 11:31:30 08/02/2023 text/html PREVIOUS ( 4): [...] for follow-up. He was admitted recently at [facility] and was transferred to [facility] due to acute kidney injury. His [...] participants on the call. Porfirio Lozano PA-C [address], [place], [address], [facility] - [facility] - [place] & [place] 08/02/2023 23:06:18
[2024-08-25 12:03] LABS: Hematocrit 44.8 % (42.0-52.0); Hemoglobin 14.7 g/dL (14.1-18.0); Immature Granulocytes % 0.1 %; Mean Corpuscular HGB Conc 32.8 g/dL (31.8-35.4); Mean Corpuscular Hemoglobin 29.9 pg (27.0-31.2); Mean Corpuscular Volume 91.1 fl (80-94); Nucleated Red Blood Cells % 0 %; Platelet Count 207 K/mm3 (142-424); Red Blood Count 4.92 M/mm3 (4.60-6.20); Red Cell Distribution Width-SD 50.4 fL; White Blood Count 8.5 K/mm3 (4.8-10.8)
[2024-08-25 12:12] LABS: Ammonia < 9 umol/L (9-30)
[2024-08-25 12:23] LABS: Albumin Level 4.4 g/dl (3.5-5.0)
[2024-08-25 12:24] LABS: Chloride 104 mmol/L (98-107); Sodium 134 mmol/L (136-145)
[2024-08-25 12:26] LABS: Alanine Aminotransferase 45 U/L (12-78); Alkaline Phosphatase 108 U/L (38-126); Anion Gap 12.5 mEq/L (5-15); Aspartate Amino Transferase 28 U/L (17-59); Bilirubin,Total 0.7 mg/dl (0.2-1.3); Blood Urea Nitrogen 31 mg/dl (9-20); Carbon Dioxide 24 mmol/L (22.0-30.0); Creatinine,Serum 1.50 mg/dl (0.66-1.25); Estimated Glomerular Filt Rate 47 ml/min (>60); GFR (African American) 56 ML/MIN (>60)
[2024-08-25 12:27] LABS: Albumin/Globulin Ratio 1.3 (1.1-1.8); Calcium 10.1 mg/dl (8.4-10.2); Globulin 3.4 g/dL (1.3-3.2); Glucose 105 mg/dl (74-100); Iron 131 ug/dL (49-181); Lipase 126 U/L (23-300); Total Protein,Serum 7.8 g/dl (6.3-8.2)
[2024-08-25 12:55] LABS: Potassium 6.5 mmoL/L (3.5-5.1)
[2024-08-25 13:01] LABS: Ferritin 110 ng/ml (17.9-464)
[2024-08-25 13:31] LABS: Total Iron Binding Capacity 348 ug/dL (261-462)
[2024-08-25 13:52] LABS: INR 1.04 (0.9-1.1); Prothrombin Time 11.5 seconds (10.1-12.5)
== END 2024-08-25 23:59 | disposition home or self-care (01) ==
LOC: LAB 11:24
PROVIDERS: PCP Family Medicine; Visit Provider Nurse Practitioner Family
DX: K70.31 Alcoholic cirrhosis of liver with ascites (principal)
CPT/HCPCS: 36415; 80053; 82105; 82140; 82728; 83540; 83550; 83690; 85025; 85610

== ENCOUNTER 2024-08-25 13:39 | Emergency (ER) | payer MEDICARE, SELFPAY ==
[2024-08-25] VITALS (7 sets, daily range): BP systolic 133–162; BP diastolic 82–96; PULSE 56–99; RESP 16–20; TEMP 36.6–36.9; O2SAT 97–99; BMI 24.9
--- OUTSIDE RECORDS SUMMARY | 2024-08-25 13:49 | XMS_ITS | Clinical Summary ---
Author Organization [facility] Address [address] [place] [id number] Care Team Providers Care Vocational Examiner Name Role Phone Provider, No Known Primary [...] 12/12/2018 Pneumococcal Vaccine 50+ Completed 02/12/2023 Insurance [facility] Medicare Advantage [employer] PPO Advance Directives * CPR (Attempt to Resuscitate) (Latest Code Status on File) Date Activated Date Inactivated Comments 07/28/2023 8:40 AM 07/29/2023 4:57 PM Question Answer Comments Code Status (Patient has no pulse and is not breathing): CPR (Attempt to Resuscitate) Medical Interventions (Patie nt has pulse or is breathing): Full Support Care Teams Vocational Examiner Relationship Specialty Start Date End Date Provider, No Known [facility] [place] [address] PCP - General 07/28/23
--- NOTE | 2024-08-25 14:01 | HMH.EDGENADL ---
Discharge Plan Disposition Patient Disposition: Home, Self-Care Prescriptions Prescriptions: New Lokelma 5 gram powder in packet 5 g PO DAILY 5 Days Qty: 11 0RF No Action lisinopril 10 mg tablet PO ciclopirox 0.77 % cream 1 applic topical BID 180 Days Qty: 90 1RF multivitamin Tablet 1 tab PO DAILY cholecalciferol (vitamin D3) 25 mcg (1,000 unit) capsule 25 mcg PO DAILY (DME) lancets [Accu-Chek Softclix Lancets] Misc See Rx Instructions .ROUTE .MEDSUPPLY Qty: 100 Patient Comments: USE DIRECTED EVERY DAY Rx Instructions: As directed (DME) Accu-Chek Guide test strips Strip See Rx Instructions .ROUTE .MEDSUPPLY Qty: 10 Patient Comments: USE TO test blood sugar EVERY DAY Rx Instructions: As directed (DME) blood-glucose meter [Accu-Chek Guide Me Glucose Mtr] Misc See Rx Instructions .ROUTE .MEDSUPPLY Qty: 1 Patient Comments: USE DIRECTED TO check blood sugar Rx Instructions: As directed furosemide 20 mg tablet 20 mg PO DAILY Qty: 90 2RF spironolactone 50 mg tablet 50 mg PO DAILY Qty: 90 3RF Referrals Follow up/Referrals: Jairo Singleton MD [Primary Care Provider, Medical] - See instructions Activity Restrictions/Add. Instructions Additional Instructions/Restrictions: I spoke with Dr. Singleton's office and he has an appointment for you tomorrow morning At 11 AM. I encourage you to attend this appointment as it is important to recheck your labs. Take the medication prescribed to you tomorrow morning. If you develop any new or worsening symptoms, such as heart palpitations, chest pain, shortness of breath, or if you become concerned for your health for any reason, return to the emergency department for evaluation Clinical Impressions Clinical Impression: Hyperkalemia, Creatinine elevation Print Language Print Language: Haitian Discharge ED Provider: Joaquín Kenney Adult HPI General Chief complaint: Recheck/Abnormal Lab/Rx Stated complaint: abnormal labs. Time Seen by Provider: 08/25/24 13:47 Mode of Arrival: Wheelchair Source of Information: Patient Description of Symptoms (Recalled from ER Triage Doc. by RN): pt was sent by [facility] office for low K+ levels, pt takes lasix and spironlactone everyday, pt denies any s/s History of Present Illness HPI narrative: Reynaldo Simons is a 69-year-old male with a past medical history of alcoholic cirrhosis of the liver who presents to the emergency department for complaints of potassium issues. Patient states that he was seen at [facility] office for routine follow-up and received a call afterwards that his potassium was low, however on evaluation of the lab work, it is elevated at 6.5. Patient states that he has otherwise been asymptomatic, denying any chest pain, palpitations, shortness of breath, abdominal pain, nausea, vomiting, diarrhea. Patient states has been in his normal state of health. He denies any alcohol use and states that he has been sober since July of last year. He received a call after leaving the doctor's office that he needed to present to the emergency department immediately. Related Data Home Medications ?Medication ?Instructions ?Recorded ?Confirmed blood sugar diagnostic (Accu-Chek #10 ea 11/20/23 06/02/24 Guide test strips) blood-glucose meter (Accu-Chek #1 ea 11/20/23 06/02/24 Guide Me Glucose Meter) lancets (Accu-Chek Softclix #100 ea 11/20/23 06/02/24 Lancets) lisinopril 10 mg tablet mg PO 07/30/24 08/25/24 cholecalciferol (vitamin D3) 25 25 mcg PO DAILY 08/25/24 08/25/24 mcg (1,000 unit) capsule multivitamin 1 tab PO DAILY 08/25/24 08/25/24 Previous Rx's ?Medication ?Instructions ?Recorded furosemide 20 mg tablet 20 mg PO DAILY #90 tabs 06/02/24 spironolactone 50 mg tablet 50 mg PO DAILY #90 tabs 06/02/24 ciclopirox 0.77 % topical cream 1 applic topical BID fungal nails 07/30/24 6 months #90 grams sodium zirconium cyclosilicate 5 5 g PO DAILY 5 days #11 ea 08/25/24 gram oral powder packet (Lokelma) Allergies Allergy/AdvReac Type Severity Reaction Status Date / Time No Known Allergies Allergy Verified 08/25/24 10:38 [facility] Disclaimer: The information contained in this section may have been updated after the patient was seen, as this information can be updated by other users. Medical History Falls History of type 2 diabetes mellitus History of COPD Cataracts, both eyes Arthritis Closed T12 spinal fracture Anorexia Weight loss, unintentional EWA (acute kidney injury) Adult failure to thrive EWA (acute kidney injury) Dyspnea on exertion Alcohol use Nicotine dependence, unspecified, uncomplicated Colon polyps DM type 2 (diabetes mellitus, type 2) Hyperlipidemia Alcoholism Cirrhosis Hypertension Diabetes mellitus Gout Surgical History History of colonoscopy Family History Other Cancer Coronary artery disease Diabetes Hyperlipidemia Hypertension Social History Smoking Status: Current every day smoker tobacco type: cigarettes packs per day: 1 alcohol intake: former substance use type: denies use current occupational status: unemployed Travel in the last 8 weeks?: None household members: spouse marital status: number of children: 2 Have you lived/traveled outside [place] in past 30 days?: No Contact w/someone who lives/traveled outside US past 30 days?: No Exposure to someone with infectious disease in past 14 days?: No Do you have a fever (greater than 100.4 F or 38 C)?: No Have you tested positive for COVID-19?: No Exposed to someone with COVID-19 in past 14 days?: No Do you have a sore throat?: No Do you have a cough?: No Do you have any weakness?: No Do you have any diarrhea?: No Are you experiencing any unusual bleeding?: No Do you have any muscle aches/pain?: No Do you have any abdominal pain?: No Are you experiencing loss of taste or smell?: No Other Medical History Have you received the Flu Vaccine for this season: No Have you received the Pneumonia Vaccine: No ROS Obtained: Yes Systems reviewed as appropriate & no additional complaints except as documented Physical Exam General General appearance: alert and in no apparent distress Head Head exam: atraumatic Eye Eye exam: Present normal appearance ENT ENT exam: Present normal external ear exam Neck Neck exam: Present full ROM Chest Chest inspection: Present symmetric chest wall rise Respiratory Respiratory exam: Present normal lung sounds bilaterally; Absent respiratory distress Cardiovascular Cardiovascular exam: Present regular rate and normal rhythm Abdominal Exam Abdominal exam: Present soft and distention; Absent tenderness or guarding exam: Present deferred Extremities Exam Extremities exam: Present normal inspection Back Exam Back exam: Present normal inspection Neurological Exam Neurological exam: Present alert and oriented X3 Psychiatric Psychiatric exam: Present normal affect Skin Skin exam: Present warm and dry Medical Decision Making Medical Records Screening: Per USPSTF and CDC recommendations, given the prevalence of disease in our region, it is our hospital?s policy to screen for HIV and viral Hepatitis for all patients aged 18 and over and those with ongoing risk factors. Jovany Inquiry Pt receiving controlled substance: No Vital Signs: 08/25/24 13:46 08/25/24 13:54 08/25/24 14:00 Temperature 97.9 F Temperature Source Oral Pulse Rate 65 62 Pulse Rate [Left Radial] 64 Respiratory Rate 20 20 20 Blood Pressure 149/87 H 162/96 H Blood Pressure [Right Arm] 149/87 H Blood Pressure Mean 110 118 Blood Pressure Mean [Right Arm] 107 02 Sat by Pulse Oximetry 99 97 99 Oxygen Delivery Method Room Air 08/25/24 14:30 08/25/24 15:00 08/25/24 15:30 Temperature Temperature Source Pulse Rate 99 H 66 60 Pulse Rate [Left Radial] Respiratory Rate 18 16 18 Blood Pressure 133/92 H 153/86 H 145/82 H Blood Pressure [Right Arm] Blood Pressure Mean 110 113 118 Blood Pressure Mean [Right Arm] 02 Sat by Pulse Oximetry 99 97 98 Oxygen Delivery Method Lab Data Lab Results 08/25/24 14:09: WBC 8.6, RBC 4.74, Hgb 14.0 L, Hct 43.2, MCV 91.1, MCH 29.5, MCHC 32.4, RDW 14.9, Plt Count 195, MPV 11.7 H, Neut % (Auto) 59.0, Lymph % (Auto) 30.8, Churchill % (Auto) 6.6, Eos % (Auto) 2.8, Baso % (Auto) 0.6, Neut # (Auto) 5.1, Lymph # (Auto) 2.6, Churchill # (Auto) 0.6, Eos # (Auto) 0.2, Baso # (Auto) 0.1, Sodium 133 L, Potassium 5.7 H, Chloride 105, Carbon Dioxide 22, Anion Gap 11.7, BUN 32 H, Creatinine 1.50 H, Estimated Creat Clear 44, Estimated GFR 47 L, Est GFR ( Amer) 56 L, Glucose 101 H, Calcium 9.8, Magnesium 1.6, Total Bilirubin 0.8, AST 28, ALT 42, Alkaline Phosphatase 109, Total Protein 8.1, Albumin 4.4, Globulin 3.7 H, Albumin/Globulin Ratio 1.2 08/25/24 14:09 08/25/24 14:09 Orders (Tests/Meds): ED MEDICATIONS Generic Name Dose Route Start Last Admin Trade Name Freq PRN Reason Stop Dose Admin Sodium Chloride 250 mls @ 25 mls/hr 08/25/24 15:30 08/25/24 15:53 Sod Chlor 0.9% 250ml Bag IV 08/26/24 15:29 Not Given .Q10H MONI Discontinued Medications Generic Name Dose Route Start Last Admin Trade Name Freq PRN Reason Stop Dose Admin Sodium Zirconium Cyclosilicate 10 gm 08/25/24 15:35 Lokelma 5gm Packet PO 08/25/24 15:36 ONCE ONE ORDERS Category Date Time Status CBC w/Auto Diff [Complete Blood Count Auto Diff] Stat Lab 08/25/24 14:09 Completed CMP [Comprehensive Metabolic Panel] Stat Lab 08/25/24 14:09 Completed Magnesium Stat Lab 08/25/24 14:09 Completed EKG Request [ECG Request] Stat Y 08/25/24 13:53 Ordered ECG Data Tracing #1: I reviewed this ECG and interpreted as documented below: Normal sinus rhythm with ventricular rate of 64 bpm. QTc normal at 397. No ST elevation or depression. No T wave inversions. No peaked T waves. Medical Decision Narrative: Reynaldo Simons is a 69-year-old male with a past medical history of alcoholic cirrhosis of the liver who presents to the emergency department for complaints of potassium issues. Patient states that he was seen at [facility] for routine follow-up and received a call afterwards that his potassium was low, however on evaluation of the lab work, it is elevated at 6.5. Patient states that he has otherwise been asymptomatic, denying any chest pain, palpitations, shortness of breath, abdominal pain, nausea, vomiting, diarrhea. Patient states has been in his normal state of health. He denies any alcohol use and states that he has been sober since July of last year. He received a call after leaving the doctor's office that he needed to present to the emergency department immediately. On arrival, patient is mildly hypertensive with blood pressure 149/87, heart rate within normal limits, breathing comfortably room air with oxygen saturation 97% SpO2. Physical exam, stated above, reveals an overall well-appearing male in no distress. Cardiopulmonary exams unremarkable. Abdomen is mildly distended but nontender. Patient states that he is supposed to have fluid taken off of it eventually but it is collecting slowly in the do not feel he urgently needs a paracentesis. The Raynaud's physical exam is grossly unremarkable. Differential diagnosis includes, but is not limited to: Hyperkalemia, cardiac arrhythmia, electrolyte derangement, metabolic derangement, among others. The most morbid conditions were considered and workup was based on these. Patient's laboratory studies obtained earlier today showed normal CBC, coagulation studies unremarkable, potassium of 6.5 and a sodium of 134. Creatinine is elevated at 1.5 and BUN is 31 (baseline creatinine appears to be 1.1-1.3 over the past year) liver enzymes within normal limits. Bilirubin normal. Iron studies normal. Lipase normal. EKG was obtained and patient has no evidence of ischemia and no peaked T waves. See interpretation above. Will obtain repeat lab work today, including CBC, CMP, magnesium. Patient's potassium at this point is 5.7 and is likely patient's previous sample was hemolyzed. Patient's creatinine is constant at 1.5. Patient does not have any EKG changes and is asymptomatic. Given this, is felt that he does not require admission at this time. Will give a dose of 10 mg Lokelma here and prescribe him Lokelma to take as outpatient. I discussed patient's case with Dr. Singleton's office as it is felt he needs close follow-up for lab recheck. They stated that they can get him in at 11 AM tomorrow. I discussed this with patient he was in agreement to follow-up with them in the morning. I gave him strict return precautions. All questions were answered. He demonstrated understanding and was in agreement this plan. He was then discharged from the emergency department in stable condition. Critical Care Critical Care Time Critical Care Time: No
--- NOTE | 2024-08-25 14:06 | ECG_ITS ---
APPROVED REPORT Exam: Resting ECG HR:64 bpm ECG Measurements Heart Rate 64 AXES OR 126 P 30 QRSd 112 QRS 39 QT 388 T 51 QTc 397 Conclusion SINUS RHYTHM LOW QRS VOLTAGE IN PRECORDIAL LEADS [QRS DEFLECTION < 1.0 mV IN CHEST LEADS] INCOMPLETE RIGHT BUNDLE BRANCH BLOCK [90+ ms QRS DURATION, TERMINAL R IN V1/V2, 40+ ms S IN I/aVL/V4/V5/V6] BORDERLINE ECG UNCONFIRMED REPORT Normal sinus rhythm. No ST elevation or depression. Electronically signed by : INDU BIRCH, 08/26/2024 07:33:53
[2024-08-25 14:23] LABS: Hematocrit 43.2 % (42.0-52.0); Hemoglobin 14.0 g/dL (14.1-18.0); Immature Granulocytes % 0.2 %; Mean Corpuscular HGB Conc 32.4 g/dL (31.8-35.4); Mean Corpuscular Hemoglobin 29.5 pg (27.0-31.2); Mean Corpuscular Volume 91.1 fl (80-94); Nucleated Red Blood Cells % 0 %; Platelet Count 195 K/mm3 (142-424); Red Blood Count 4.74 M/mm3 (4.60-6.20); Red Cell Distribution Width-SD 49.6 fL; White Blood Count 8.6 K/mm3 (4.8-10.8)
[2024-08-25 14:47] LABS: Albumin Level 4.4 g/dl (3.5-5.0); Chloride 105 mmol/L (98-107)
[2024-08-25 14:48] LABS: Potassium 5.7 mmoL/L (3.5-5.1); Sodium 133 mmol/L (136-145)
[2024-08-25 14:50] LABS: Alanine Aminotransferase 42 U/L (12-78); Albumin/Globulin Ratio 1.2 (1.1-1.8); Alkaline Phosphatase 109 U/L (38-126); Anion Gap 11.7 mEq/L (5-15); Aspartate Amino Transferase 28 U/L (17-59); Bilirubin,Total 0.8 mg/dl (0.2-1.3); Blood Urea Nitrogen 32 mg/dl (9-20); Carbon Dioxide 22 mmol/L (22.0-30.0); Creatinine Clearance Estimated 44 mL/min (50-200); Creatinine,Serum 1.50 mg/dl (0.66-1.25); Estimated Glomerular Filt Rate 47 ml/min (>60); GFR (African American) 56 ML/MIN (>60); Globulin 3.7 g/dL (1.3-3.2); Total Protein,Serum 8.1 g/dl (6.3-8.2)
[2024-08-25 14:51] LABS: Calcium 9.8 mg/dl (8.4-10.2); Glucose 101 mg/dl (74-100); Magnesium 1.6 mg/dl (1.6-2.3)
[2024-08-25] MEDS: LOKELMA 5GM PACKET 10 GM PO (15:59)
== END 2024-08-25 16:08 | disposition home or self-care (01) ==
PROVIDERS: Emergency Provider Student in an Organized Health Care Education/Training Program; PCP Family Medicine
DX: E87.5 Hyperkalemia (principal); R94.4 Abnormal results of kidney function studies; F17.210 Nicotine dependence, cigarettes, uncomplicated
CPT/HCPCS: 80053; 83735; 85025; 93005; 99284